=== PATIENT | male | born 1940 | race Caucasian/White ===

== ENCOUNTER → 2020-01-04 09:31 | Outpatient (BNVA) | payer MEDICARE, SELFPAY | PROVIDERS: PCP Internal Medicine; Visit Provider Hospitalist | DX: J44.9 Chronic obstructive pulmonary disease, unspecified (principal); J47.9 Bronchiectasis, uncomplicated; R91.8 Other nonspecific abnormal finding of lung field; Z79.899 Other long term (current) drug therapy | CPT/HCPCS: 99212 ==

== ENCOUNTER 2020-06-03 07:40 | Outpatient (REF) | payer MEDICARE, SELFPAY ==
--- NOTE | ~2020-06-03 | CT_ITS ---
EXAMINATION: CT CHEST WITHOUT CONTRAST CLINICAL INFORMATION: Follow-up pulmonary nodules COMPARISON: Previous chest CT November 2019 TECHNIQUE: Multidetector volumetric CT imaging of the chest was done. Axial MIP volume rendering provided. Sagittal and coronal reformatted images were obtained. This CT examination was performed using dose optimization techniques as appropriate, variously including the following: *Automated exposure control *Adjustment of mA and/or kV according to patient size (this includes techniques or standardized protocols for targeted exams where dose is matched to indication/reason for exam; i.e. extremities or head) *Use of iterative reconstruction technique DLP: 195 mGy-cm FINDINGS: LUNGS: There is a mixed cystic and groundglass attenuation area in the lateral right upper lobe. Cystic and groundglass attenuation components together measures 1.5 cm axial image 231 series 7 and does not appear appreciably changed. There is a 2 mm right upper lobe nodule axial image 75 series 7 able. There is a 2 mm solid right lower lobe nodule axial image 264 series 7 that is stable. There is a 4 mm groundglass attenuation nodule in the right lower lobe axial image 301 series 7 that is stable. There is a solid 3 mm nodules in the right lower lobe axial image 385 that is stable. There is mild bronchiectasis in the left lower lobe at the lung bases for example axial image 369 series 7. There is increased soft tissue in the bronchi probably representing patient secretions. No endobronchial or endotracheal lesion is seen. MEDIASTINUM: The heart does not appear enlarged. There is fat in the anterior atrial septum. There is coronary artery and aortic valve calcification. There is no pericardial effusion. The thoracic aorta is normal in caliber. PLEURA: There is no pleural effusion. No pleural mass or thickening. AXILLA: No lymphadenopathy. UPPER ABDOMEN: There is new pneumobilia seen in the liver. The gallbladder has been removed. This is unchanged. OSSEOUS STRUCTURES: There are degenerative changes of the spine. CT/CT chest wo con IMPRESSION: Stable pulmonary nodules. Continued chest CT follow-up of the 1.5 cm mixed cystic and groundglass attenuation right upper lobe nodule recommended. Left lower lobe bronchiectasis. Coronary artery and aortic valve calcification.
== END 2020-06-03 07:41 | disposition home or self-care (01) ==
LOC: HO.CT 07:40
PROVIDERS: PCP Internal Medicine; Visit Provider Hospitalist
DX: R91.8 Other nonspecific abnormal finding of lung field (principal)
CPT/HCPCS: 71250

== ENCOUNTER → 2020-07-08 10:33 | Outpatient (BNVA) | payer MEDICARE, SELFPAY | PROVIDERS: PCP Internal Medicine; Visit Provider Hospitalist | DX: R91.8 Other nonspecific abnormal finding of lung field (principal); J47.9 Bronchiectasis, uncomplicated; J40 Bronchitis, not specified as acute or chronic; J41.8 Mixed simple and mucopurulent chronic bronchitis | CPT/HCPCS: 99212 ==

== ENCOUNTER 2021-04-09 10:14 | Outpatient (REF) | payer MEDICARE, SELFPAY | END 2021-04-09 10:15 | disposition home or self-care (01) | LOC: CF 10:14 | PROVIDERS: Visit Provider Hospitalist | DX: R91.8 Other nonspecific abnormal finding of lung field (principal); J44.1 Chronic obstructive pulmonary disease with (acute) exacerbation | CPT/HCPCS: 87070; 87205; 99212 ==

== ENCOUNTER 2021-04-29 10:05 | Outpatient (REF) | payer MEDICARE, SELFPAY ==
[2021-04-29 11:18] LABS: MANUAL DIFF FLAG NO
[2021-04-29 11:45] LABS: Basophils Percent Auto 0.4 % (0-2); Eosinophils Absolute Auto 0.3 X10*3/uL (0.0-0.4); Eosinophils Percent Auto 3.2 % (0-4); Hematocrit 40.5 % (42.0-52.0); Hemoglobin 13.5 g/dl (14.0-18.0); Imm Gran Abs Auto 0.07 X10*3/uL (0.00-0.03); Imm Gran Pct Auto 0.9 % (0.0-0.4); Lymphocytes Absolute Auto 1.5 X10*3/uL (1.2-4.9); Lymphocytes Percent Auto 18.4 % (20-40); Mean Corpuscular HGB Conc 33.3 g/dl (31.0-36.0); Mean Corpuscular Hemoglobin 30.8 pg (27.0-33.0); Mean Corpuscular Volume 92.3 fL (80.0-98.0); Mean Platelet Volume 9.1 fL (9.4-12.4); Monocytes Absolute Auto 0.9 X10*3/uL (0.1-1.2); Monocytes Percent Auto 11.1 % (2-11); Neutrophils Absolute Auto 5.2 x10*3/uL (2.0-8.3); Platelet Count 229 X10*3/uL (160-400); Red Blood Count 4.39 X10*6/uL (4.60-5.80); Red Cell Distribution Width 13.4 % (11.0-16.0); White Blood Count 7.9 X10*3/uL (4.8-10.8)
[2021-04-29 12:20] LABS: Erythrocyte Sedimentation Rate 7 MM/HR (0-15)
[2021-04-30 14:52] LABS: IgA 137 mg/dL (70-320); IgG 521 mg/dL (600-1540); IgM 26 mg/dL (50-300)
[2021-04-30 22:27] LABS: Immunoglobulin G Subclass 1 366 mg/dL (382-929); Immunoglobulin G Subclass 2 70 mg/dL (241-700); Immunoglobulin G Subclass 3 38 mg/dL (22-178); Immunoglobulin G Subclass 4 3.1 mg/dL (4-86); Immunoglobulin G Total 507 mg/dL (600-1540)
== END 2021-04-29 10:06 | disposition home or self-care (01) ==
LOC: HO.LAB 10:05
PROVIDERS: PCP Physician Assistant Medical; Visit Provider Hospitalist
DX: J41.1 Mucopurulent chronic bronchitis (principal); J47.0 Bronchiectasis with acute lower respiratory infection; R91.8 Other nonspecific abnormal finding of lung field
CPT/HCPCS: 36415; 82784; 82785; 85025; 85652; 86003; 99212

== ENCOUNTER → 2021-06-03 10:07 | Outpatient (BNVA) | payer MEDICARE, SELFPAY | PROVIDERS: PCP Physician Assistant Medical; Visit Provider Hospitalist | DX: J40 Bronchitis, not specified as acute or chronic (principal); J47.0 Bronchiectasis with acute lower respiratory infection; J41.1 Mucopurulent chronic bronchitis; R91.8 Other nonspecific abnormal finding of lung field; D80.1 Nonfamilial hypogammaglobulinemia | CPT/HCPCS: 99212 ==

== ENCOUNTER 2021-06-11 07:55 | Day surgery (SDC) | payer MEDICARE, SELFPAY ==
--- NOTE | 2021-06-10 11:47 | HO.ANESPROP2 ---
Documented by User: Keesha Glynn NP 06/10/21 13:42 HPI - Anesthesia Eval Consult details Narrative: 81yo M for Bronchoscopy Fiberoptic PMFSH Active Problems Active Problems: All Active Problems (Updated 06/03/21 @ 21:36 by Greg Medley MD) Hypogammaglobulinemia (Acute) Pulmonary nodules (Acute) Bronchiectasis (Acute) Bronchitis (Acute) COPD (chronic obstructive pulmonary disease) (Acute) Past Medical History Medical History (Updated 06/03/21 @ 21:36 by Greg Medley MD) Aortic regurgitation Aortic stenosis Bronchiectasis Bronchitis CAD (coronary artery disease) COPD (chronic obstructive pulmonary disease) Hypogammaglobulinemia Pulmonary nodules Surgical History Surgical History (Updated 06/02/21 @ 15:13 by Margie Montague PA-C) History of left knee surgery History of lithotripsy Social History Social History (Updated 04/09/21 @ 10:38 by ANYA Nelson) Patient Tobacco Use Status: Former Tobacco user Quit Date: 1969 Tobacco use type: Cigarette Smoked in Last 30 Days: No Use of substances other than those prescribed or required for medical reasons: No Are you DNR?: No Advance Directives: No Advance Directives Information Provided: Yes Meds Allergies Allergy/AdvReac Type Severity Reaction Status Date / Time acetaminophen [From Percocet] Allergy Severe Anxiety Verified 06/11/21 08:34 oxycodone [From Percocet] Allergy Severe Anxiety Verified 06/11/21 08:34 PCN Allergy Intermediate Swelling Uncoded 06/03/21 10:20 Home Medications Medication Instructions Recorded Confirmed Last Taken Type atorvastatin 40 mg tablet mg PO 01/04/20 07/08/20 Unknown History celecoxib 200 mg capsule 200 mg PO DAILY 01/04/20 07/08/20 Unknown History finasteride 5 mg tablet 5 mg PO DAILY 01/04/20 07/08/20 Unknown History lorazepam 1 mg tablet 1 mg PO 01/04/20 07/08/20 Unknown History methimazole 5 mg tablet 5 mg PO DAILY 01/04/20 07/08/20 Unknown History metoprolol succinate 25 mg 25 mg PO DAILY 01/04/20 07/08/20 Unknown History tablet,extended release 24 hr omeprazole 20 mg capsule,delayed 20 mg PO DAILY 01/04/20 07/08/20 Unknown History release sertraline 50 mg tablet 50 mg PO DAILY 01/04/20 07/08/20 Unknown History tamsulosin 0.4 mg capsule mg PO 01/04/20 07/08/20 Unknown History aspirin 81 mg tablet,delayed 81 mg PO DAILY 04/09/21 Unknown History release fluticasone propionate 50 spray INTRANASAL 04/29/21 Unknown History mcg/actuation nasal spray,suspension tacrolimus 0.1 % topical ointment TOPICAL BID 06/03/21 Unknown History Exam Exam Date and Time: June 10, 2021 1147 Narrative Narrative: EKG 11/2020 NSR @ 61 ECHO 01/2021 Mild LVH with normal LV cavity size and systolic function. Normal RWM with EF 55-60% Normal RV size and systolic function Mild to mod . Mild AI. Grade 1 DD consistent with normal LA pressure. Normal artery systolic pressure. C/W 08/2018 study, aortic stenosis has progressed slightly but otherwise findings are stable. Assessment and Plan Assessment Anesthesia Assessment: Chart Reviewed Documented by User: Anoop Hernandez MD 06/11/21 09:42 [facility], [facility] Past Medical History Medical History (Updated 06/03/21 @ 21:36 by Greg Medley MD) Aortic regurgitation Aortic stenosis Bronchiectasis Bronchitis CAD (coronary artery disease) COPD (chronic obstructive pulmonary disease) Hypogammaglobulinemia Pulmonary nodules Family History Family history of problems with anesthesia: No Surgical History Surgical History (Updated 06/02/21 @ 15:13 by Margie Montague PA-C) History of left knee surgery History of lithotripsy History of Problems with Anesthesia: No Social History Social History (Updated 04/09/21 @ 10:38 by ANYA Nelson) Patient Tobacco Use Status: Former Tobacco user Quit Date: 1969 Tobacco use type: Cigarette Smoked in Last 30 Days: No Use of substances other than those prescribed or required for medical reasons: No Are you DNR?: No Advance Directives: No Advance Directives Information Provided: Yes Meds Allergies Allergy/AdvReac Type Severity Reaction Status Date / Time acetaminophen [From Percocet] Allergy Severe Anxiety Verified 06/11/21 08:34 oxycodone [From Percocet] Allergy Severe Anxiety Verified 06/11/21 08:34 PCN Allergy Intermediate Swelling Uncoded 06/03/21 10:20 Home Medications Medication Instructions Recorded Confirmed Last Taken Type atorvastatin 40 mg tablet mg PO 01/04/20 07/08/20 Unknown History celecoxib 200 mg capsule 200 mg PO DAILY 01/04/20 07/08/20 Unknown History finasteride 5 mg tablet 5 mg PO DAILY 01/04/20 07/08/20 Unknown History lorazepam 1 mg tablet 1 mg PO 01/04/20 07/08/20 Unknown History methimazole 5 mg tablet 5 mg PO DAILY 01/04/20 07/08/20 Unknown History metoprolol succinate 25 mg 25 mg PO DAILY 01/04/20 07/08/20 Unknown History tablet,extended release 24 hr omeprazole 20 mg capsule,delayed 20 mg PO DAILY 01/04/20 07/08/20 Unknown History release sertraline 50 mg tablet 50 mg PO DAILY 01/04/20 07/08/20 Unknown History tamsulosin 0.4 mg capsule mg PO 01/04/20 07/08/20 Unknown History aspirin 81 mg tablet,delayed 81 mg PO DAILY 04/09/21 Unknown History release fluticasone propionate 50 spray INTRANASAL 04/29/21 Unknown History mcg/actuation nasal spray,suspension tacrolimus 0.1 % topical ointment TOPICAL BID 06/03/21 Unknown History Exam Airway Mallampati Class: I TM Dist: >3cm Neck ROM: Full Denture: Upper Heart: ok. chart rev. Lungs: ok Assessment and Plan Assessment Anesthesia Assessment: Anesthesia Plan Discussed and Chart Reviewed Final Anesthetic Review Family History of Problems with Anesthesia: No History of Problems with Anesthesia: No NPO: Yes ASA Class: IV Final Preanesthetic Review: No Changes in Pt Med Stat, Meds/Allgs Chart Reviewed, Consent Obtained/Reviewed and Anes Risks/Benef Reviewed Patient Risk: High Procedure Risk: Intermediate Anesthetic Plan Anesthetic Plan: MAC: and Agree w/ Assess. and Plan Disposition: Standard PACU
[2021-06-11] VITALS (14 sets, daily range): BP systolic 80–129; BP diastolic 38–62; PULSE 58–69; RESP 12–16; TEMP 36.3–36.8; O2SAT 94–100; BMI 27.3
[2021-06-11] MEDS: Lactated Ringers 1,000 ML 50 ML IVCONT (09:02)
--- NOTE | 2021-06-11 09:11 | MHC.SHP ---
Pre-Procedural Eval Section A Date of Service: 06/11/21 The patient is an INPATIENT: No Changes since office visit: No Cold of Flu in the past 2 weeks, No New Medical Problems, No Changes in Medication and No Patient answered all questions The History & Physical has been completed within 30 days and I have reviewed it.: Yes Section B Chief Complaint: Bronchiectasis, Allergies: Allergies Allergy/AdvReac Type Severity Reaction Status Date / Time acetaminophen [From Percocet] Allergy Severe Anxiety Verified 06/11/21 08:34 oxycodone [From Percocet] Allergy Severe Anxiety Verified 06/11/21 08:34 PCN Allergy Intermediate Swelling Uncoded 06/03/21 10:20 Plan I have reviewed the history and physical and performed a pertinent physical examination on my patient. No changes have occurred unless specified.
--- NOTE | 2021-06-16 12:05 | OP_ITS ---
SURGEON: Greg Medley MD PREOPERATIVE DIAGNOSIS: POSTOPERATIVE DIAGNOSIS: PROCEDURE PERFORMED: Bronchoscopy. ESTIMATED BLOOD LOSS: COMPLICATIONS: None. ANESTHESIA: MAC. ASSISTANTS: SPECIMENS: PREOPERATIVE DIAGNOSES: Bronchitis and bronchiectasis. POSTOPERATIVE DIAGNOSES: Tracheobronchomalacia and bronchitis along with bronchiectasis. BLEEDING: None. INTERPRETATION: 1. Successful therapeutic suctioning of the airways. 2. Evidence of tracheobronchomalacia, severe. 3. Microscopic brush from the right lung. 4. Bilateral lung washings for cytology microbiology. NURSES MEDICAL ASSISTANTS PHLEBOTOMISTS: None. DESCRIPTION OF PROCEDURE: After the patient was adequately sedated, the flexible digital bronchoscope was inserted over the oral airway to the level of the larynx. The vocal cords moved symmetrically to the midline without any lesions. The larynx appeared to be normal. After instilling additional lidocaine, the bronchoscope was then passed the vocal cords to the level of the trachea. The patient did have significant tracheomalacia at the level of the mid and distal trachea. Endotracheal mucosa appeared normal. After instilling additional lidocaine, the bronchoscope was then navigated to the entire tracheobronchial tree. There was some inflammation and bronchitis looking airways primarily in the right middle lobe area and right upper lobe. The patient did have thick secretions coming out of the right upper lobe and also the right mainstem bronchus that were easily clear. The patient also had frothy secretions otherwise throughout mainly in the lower lung zones. There was some gross micro aspirations noted throughout the procedure. No endobronchial lesions or masses noted. No evidence of any concerning lesions. The bronchoscope was navigated to the right side where a microscopic brush was introduced into the right middle lobe and right lower lobe area. Specimen sent to the appropriate locations. Bronchial washings were also collected bilaterally. Able to clear some thick purulent secretions primarily from the right upper lobe and right middle lobe area. After that, we cleared the frothy secretions. The bronchoscope was then removed. The total endoscopic time approximately 12 minutes. The patient tolerated the procedure well. Vital signs were stable throughout the procedure. MD JULY Su/JAIME / [id number]
== END 2021-06-11 12:30 | disposition home or self-care (01) ==
PROVIDERS: PCP Physician Assistant Medical; Visit Provider Hospitalist
PROC: 0BJ08ZZ Inspection of Tracheobronchial Tree, Via Natural or Artificial Opening Endoscopic (ICD-10-PCS; CPT 31622; principal; 2021-06-11 09:30)
DX: J44.9 Chronic obstructive pulmonary disease, unspecified (principal); J39.8 Other specified diseases of upper respiratory tract; J40 Bronchitis, not specified as acute or chronic; R91.8 Other nonspecific abnormal finding of lung field; I25.10 Atherosclerotic heart disease of native coronary artery without angina pectoris; I35.0 Nonrheumatic aortic (valve) stenosis; I35.1 Nonrheumatic aortic (valve) insufficiency; D80.1 Nonfamilial hypogammaglobulinemia; Z79.899 Other long term (current) drug therapy; Z88.0 Allergy status to penicillin; Z88.8 Allergy status to other drugs, medicaments and biological substances; Z87.891 Personal history of nicotine dependence
CPT/HCPCS: 31645; 31623; 87071; 87102; 87106; 87116; 87205; 88112; J0171; J3010

== ENCOUNTER → 2021-07-13 09:39 | Outpatient (BNVA) | payer MEDICARE, SELFPAY | PROVIDERS: PCP Physician Assistant Medical; Visit Provider Hospitalist | DX: J40 Bronchitis, not specified as acute or chronic (principal); J45.50 Severe persistent asthma, uncomplicated; R91.8 Other nonspecific abnormal finding of lung field; D80.1 Nonfamilial hypogammaglobulinemia; J44.9 Chronic obstructive pulmonary disease, unspecified | CPT/HCPCS: 99212 ==

== ENCOUNTER 2021-08-24 10:49 | Outpatient (REF) | payer MEDICARE, SELFPAY ==
--- NOTE | ~2021-08-24 | XR_ITS ---
EXAMINATION: XR CHEST CLINICAL INFORMATION: COPD. COMPARISON: Chest CT scan dated 06/03/2020. TECHNIQUE: 2 views of the chest were obtained. FINDINGS: Minimal linear markings are seen in the lingula. The lungs are otherwise clear. There are no pleural effusions. The heart and mediastinal structures are unremarkable. XR/XR chest 2V IMPRESSION: Minimal linear atelectasis versus scarring in the lingula. No acute cardiopulmonary process.
[2021-08-24 11:00] LABS: MANUAL DIFF FLAG NO
[2021-08-24 11:29] LABS: Basophils Absolute Auto 0.1 X10*3/uL (0.0-0.2); Basophils Percent Auto 0.9 % (0-2); Eosinophils Absolute Auto 0.4 X10*3/uL (0.0-0.4); Eosinophils Percent Auto 5.9 % (0-4); Hematocrit 38.1 % (42.0-52.0); Hemoglobin 13.1 g/dl (14.0-18.0); Imm Gran Abs Auto 0.03 X10*3/uL (0.00-0.03); Imm Gran Pct Auto 0.4 % (0.0-0.4); Lymphocytes Absolute Auto 1.4 X10*3/uL (1.2-4.9); Lymphocytes Percent Auto 20.4 % (20-40); Mean Corpuscular HGB Conc 34.4 g/dl (31.0-36.0); Mean Corpuscular Hemoglobin 31.1 pg (27.0-33.0); Mean Corpuscular Volume 90.5 fL (80.0-98.0); Mean Platelet Volume 9.2 fL (9.4-12.4); Monocytes Absolute Auto 0.8 X10*3/uL (0.1-1.2); Monocytes Percent Auto 11.8 % (2-11); Neutrophils Absolute Auto 4.2 x10*3/uL (2.0-8.3); Neutrophils Percent Auto 60.6 % (45-73); Platelet Count 217 X10*3/uL (160-400); Red Blood Count 4.21 X10*6/uL (4.60-5.80)
[2021-08-24 12:17] LABS: Erythrocyte Sedimentation Rate 4 MM/HR (0-15)
[2021-08-26 07:32] LABS: Immunoglobulin E 16 kU/L (<OR=114)
[2021-08-26 15:22] LABS: Immunoglobulin G Subclass 1 394 mg/dL (382-929); Immunoglobulin G Subclass 2 77 mg/dL (241-700); Immunoglobulin G Subclass 3 46 mg/dL (22-178); Immunoglobulin G Total 619 mg/dL (600-1540)
[2021-08-30 13:52] LABS: Asperg fumigatus Precip Abs NEGATIVE (NEGATIVE); Micropoly faeni Abs NEGATIVE (NEGATIVE); Pigeon serum Abs NEGATIVE (NEGATIVE); Saccharo pora viridis Abs NEGATIVE (NEGATIVE); Thermo candidus Abs NEGATIVE (NEGATIVE); Thermoa vulgaris #1 NEGATIVE (NEGATIVE)
== END 2021-08-24 10:50 | disposition home or self-care (01) ==
LOC: HO.XRAY 10:49
PROVIDERS: PCP Physician Assistant Medical; Visit Provider Hospitalist
DX: J45.50 Severe persistent asthma, uncomplicated (principal); R91.8 Other nonspecific abnormal finding of lung field; D80.1 Nonfamilial hypogammaglobulinemia; J44.9 Chronic obstructive pulmonary disease, unspecified; J40 Bronchitis, not specified as acute or chronic
CPT/HCPCS: 36415; 71046; 82784; 82785; 85025; 85652; 86331; 86606; 86609; 99212

== ENCOUNTER 2021-10-27 08:48 | Outpatient (REF) | payer MEDICARE, SELFPAY | END 2021-10-27 08:49 | disposition home or self-care (01) | LOC: HO.MDS 08:48 | PROVIDERS: Visit Provider Hospitalist | DX: J45.50 Severe persistent asthma, uncomplicated (principal) | CPT/HCPCS: 96372 ==

== ENCOUNTER 2021-11-24 09:50 | Outpatient (REF) | payer MEDICARE, SELFPAY | END 2021-11-24 09:51 | disposition home or self-care (01) | LOC: HO.MDS 09:50 | PROVIDERS: Visit Provider Hospitalist | DX: J45.50 Severe persistent asthma, uncomplicated (principal) | CPT/HCPCS: 96372; J0517 ==

== ENCOUNTER → 2021-11-25 11:05 | Outpatient (BNVA) | payer MEDICARE, SELFPAY | PROVIDERS: PCP Physician Assistant Medical; Visit Provider Hospitalist | DX: J44.9 Chronic obstructive pulmonary disease, unspecified (principal); J45.50 Severe persistent asthma, uncomplicated; I35.0 Nonrheumatic aortic (valve) stenosis; I35.1 Nonrheumatic aortic (valve) insufficiency; J47.0 Bronchiectasis with acute lower respiratory infection; R91.8 Other nonspecific abnormal finding of lung field; D80.1 Nonfamilial hypogammaglobulinemia; Z79.899 Other long term (current) drug therapy | CPT/HCPCS: 99212 ==

== ENCOUNTER → 2022-03-26 08:43 | Outpatient (BNVA) | payer MEDICARE, SELFPAY | PROVIDERS: PCP Physician Assistant Medical; Visit Provider Hospitalist | DX: J45.51 Severe persistent asthma with (acute) exacerbation (principal); J47.0 Bronchiectasis with acute lower respiratory infection; R91.8 Other nonspecific abnormal finding of lung field; D80.1 Nonfamilial hypogammaglobulinemia | CPT/HCPCS: 99212 ==

== ENCOUNTER → 2022-04-14 09:43 | Outpatient (BNVA) | payer MEDICARE, SELFPAY | PROVIDERS: PCP Physician Assistant Medical; Visit Provider Hospitalist | DX: Z13.89 Encounter for screening for other disorder (principal) ==

== ENCOUNTER 2022-04-14 10:43 | Outpatient (REF) | payer MEDICARE, SELFPAY | END 2022-04-14 10:44 | disposition home or self-care (01) | LOC: HO.MDS 10:43 | PROVIDERS: Visit Provider Hospitalist | DX: J45.50 Severe persistent asthma, uncomplicated (principal) | CPT/HCPCS: 96372; 99212 ==

== ENCOUNTER 2022-06-03 10:22 | Outpatient (REF) | payer MEDICARE, SELFPAY | END 2022-06-03 10:23 | disposition home or self-care (01) | LOC: HO.LNP 10:22 | PROVIDERS: Visit Provider Hospitalist | DX: J47.0 Bronchiectasis with acute lower respiratory infection (principal) | CPT/HCPCS: 87070; 87077; 87186; 87205 ==

== ENCOUNTER 2022-11-19 | Outpatient (REF) | payer MEDICARE, SELFPAY | END 2022-11-19 00:01 | disposition home or self-care (01) | LOC: CF | PROVIDERS: Visit Provider Nurse Practitioner Family | DX: J18.9 Pneumonia, unspecified organism (principal); J44.9 Chronic obstructive pulmonary disease, unspecified | CPT/HCPCS: 94640; 99212 ==

== ENCOUNTER 2022-11-19 13:08 | Outpatient (AMB) | payer MEDICARE, SELFPAY ==
[2022-11-19 13:20] VITALS: BP 126/74; PULSE 79; O2SAT 95; BMI 27.4
--- NOTE | 2022-11-19 13:20 | A.OFFVIS_ITS ---
Intake Vital Signs 11/19/22 13:20 Height 5 ft 7 in Weight 175 lb BMI 27.4 BP 126/74 Blood Pressure Location Lt brachial Position Sitting Pulse 79 Pulse Source Pulse Oximeter Pulse Oximetry (%) 95 Oxygen Delivery Method Room Air Intake Visit Reasons: Hospital follow up Manager Digital [employer] Required: No Master Cosmetologist: Master Cosmetologist offered & declined Accompanied by: Spouse Allergies acetaminophen [From Percocet] Allergy (Severe, Verified 11/19/22 13:23) Anxiety oxycodone [From Percocet] Allergy (Severe, Verified 11/19/22 13:23) Anxiety PCN Allergy (Intermediate, Uncoded 11/19/22 13:23) Swelling Medication List - Last Reconciled 11/19/22 by Francesca Mccormack LPN albuterol sulfate 2.5 mg (3 mL) inhalation BID aspirin 81 mg PO DAILY atorvastatin mg PO benralizumab 30 mg subcut Q8W benzonatate 100 mg PO BID PRN 30 days budesonide 0.5 mg (2 mL) inhalation BID 30 days celecoxib 200 mg PO DAILY dextromethorphan-guaifenesin 5-100 mg/5 mL (Robitussin Cough-Chest Congestion DM) 10 mL PO Q6H PRN 14 days diphenhydramine HCl (Benadryl Allergy) 25 mg PO BID PRN 30 days doxycycline monohydrate 100 mg PO BID 28 days finasteride 5 mg PO DAILY fluticasone propionate 50 mcg/actuation sprays intranasal immun glob G(IgG)-gly-IgA ov50 10 % (Gammagard Liquid) 40 grams IV Q4W 4 weeks ipratropium-albuterol 0.5 mg-3 mg(2.5 mg base)/3 mL USE 1 VIAL VIA NEBULIZER 4 TIMES A DAY lorazepam 1 mg PO methimazole 5 mg PO DAILY metoprolol succinate ER 25 mg PO DAILY omeprazole 20 mg PO DAILY prednisone PO daily; Take 6 tabs daily x 3 days, then 5 tabs x 3 days, then 4 tabs x 3 days, then 3 tabs x 3 days, then 2 tabs daily x 3 days, then 1 tab x 3 days to complete. 18 days roflumilast (Daliresp) 500 mcg PO DAILY 30 days sertraline 50 mg PO DAILY tacrolimus 0.1% topical BID tamsulosin mg PO HPI Hospital follow up HPI Details Timothy is a pleasant 82 year old male, former smoker, with underlying COPD, bronchiectasis, pulmonary hypertension and moderate aortic stenosis. Today he presents for a hospital follow up. He was seen in the ED at [facility] on 11/16/22 after pleuritic chest pain with associated dyspnea. After evaluation, CXR revealed LLL consolidation and he was treated with doxycycline for pneumonia. CTA negative for PE. COVID negative. He continues to report dyspnea with minimal exertion, pleuritc chest pain, productive cough with snyder sputum. He has been using his budesonide and duoneb BID. Of note, he reports in the past taking doxycycline and levaquin with minimal improvements in his symptoms. FORMERLY [facility], [facility] Medical History (Updated 11/22/22 @ 09:34 by Floridalma Moya NP) Asthma-COPD overlap syndrome Asthma Hypogammaglobulinemia CAD (coronary artery disease) Aortic regurgitation Aortic stenosis Pulmonary nodules Bronchiectasis Bronchitis COPD (chronic obstructive pulmonary disease) Surgical History (Updated 06/02/21 @ 15:13 by Margie Montague PA-C) History of left knee surgery History of lithotripsy Social History (Updated 11/19/22 @ 13:28 by Francesca Mccormack LPN) Patient Tobacco Use Status: Former Tobacco user Quit Date: 1969 Tobacco use type: Cigarette Smoked in Last 30 Days: No Review of Systems Const Denies chills, Denies excessive sweating, Denies fever(s), Denies headache(s) and Denies night sweats Eyes Denies dry eyes, Denies irritation and Denies itchy eyes ENT Reports Normal hearing present, Denies headache(s), Denies nasal congestion, Denies nasal discharge, Denies post nasal drip and Denies sore throat Card Denies claudication, Denies leg edema, Reports dyspnea, Reports dyspnea on exertion, Denies orthopnea and Denies paroxysmal nocturnal dyspnea Resp Reports change in phlegm color, Reports chest congestion, Reports cough, Denies hemoptysis, Reports pain on inspiration, Reports pain with cough, Reports dyspnea, Reports dyspnea on exertion, Denies stridor and Reports wheezing Musc Denies myalgias Neuro Reports Normal hearing present and Denies headache(s) Endo Denies excessive sweating Missael/Lymph Denies lymphadenopathy Aller/Immun Denies itchy eyes, Denies seasonal rhinorrhea and Reports wheezing Physical Exam Vital Signs: Last Vital Signs Pulse 79 11/19/22 13:20 BP 126/74 11/19/22 13:20 Pulse Ox 95 11/19/22 13:20 Oxygen Delivery Method Room Air 11/19/22 13:20 BMI result Body Mass Index 27.4 Const General: cooperative, healthy appearing, comfortable, no acute distress, well de veloped and alert Orientation/consciousness: patient oriented x3 Limitations: no limitations HEENT Head: Yes normal to inspection, Yes normocephalic and Yes atraumatic Ears: hearing grossly normal bilaterally and external ears normal Eyes General: appearance normal, both eyes and all related structures Eyelids: Yes eyelids normal Sclerae: sclerae normal EOM: EOMs intact bilaterally Neck Neck: Yes normal visual inspection and Yes no lymphadenopathy Lymphatic: no lymphadenopathy noted Chest Chest palpation & inspection: normal inspection of the chest Resp Effort & Inspection: normal respiratory effort, able to speak in complete sentences, audible wheezes, Actively coughing, no stridor, not tachypneic, no tripod positioning and no use of accessory muscles Auscultation: wheezes expiratory wheezes and diminished lung sounds (bases) bilateral Cardio Jugular venous distension: no JVD Rate: regular rate Rhythm: regular rhythm Skin Other: warm, dry General skin exam: no rashes or lesions noted Neuro General: patient oriented x3 Cranial nerves: Yes Normal hearing present Cognition (Neuro): normal cognition Gait exam (Neuro): Normal gait present Extrem General: Yes normal to inspection, Yes capillary refill normal, Yes no clubbing, cyanosis or edema and Yes no pedal edema Psych Appearance: grossly normal and well kempt Speech and movement: Normal speech and movement present and Clear speech present Affect: normal affect Attitude: cooperative Thought process: Normal thought process present Thought content: Normal thought content present Insight: Good insight present (Psych) Judgement: Good judgement present (Psych) Office Procedures Nebulizer Treatment Nebulizer Treatment 76715-[id number]/MDI RX initial, or Nebulizer Subsequent Treatment Office Meds ipratropium 0.5 mg-albuterol 3 mg (2.5 mg base)/3 mL nebulization soln Performing Provider: Floridalma Moya NP Performing Location: [facility] Administered by: Francesca Mccormack LPN on 11/19/22 14:02 Dose Route Admin Location Dispensed Lot Number Expiration Date ND Matrix Supervisor 3 mL inhalation 3 mL [id number] 04/07/24 9522-1745-01 [facility] Assessment & Plan Assessment & Plan (1) Pneumonia: Code(s): J18.9 - Pneumonia, unspecified organism (2) Asthma-COPD overlap syndrome: Code(s): J44.9 - Chronic obstructive pulmonary disease, unspecified (3) Bronchiectasis: Code(s): J47.9 - Bronchiectasis, uncomplicated Qualifiers: Bronchiectasis type: with acute lower respiratory infection Qualified Code(s): J47.0 - Bronchiectasis with acute lower respiratory infection Plan Timothy presents for hospital follow up after being diagnosed with CAP and discharged on doxycyline. Initially he reported improvements in symptoms but now with persistent cough and increased dyspnea on exertion. Reported improvements after duoneb in office. Patient noted minimal improvements with levaquin in the past, will send in Vantin and prednisone. Patient aware if symptoms do not improve that he will need to return to the ED for evaluation. All questions were answered and patient is in agreement of plan. Will follow up with Dr. Medley for regularly scheduled appointment. Orders: Orders AMB Nebulizer Treatment 11/19/22 J44.9 - Chronic obstructive pulmonary disease, unspecified Medications: New prednisone 40 mg (2 x 20 mg) PO DAILY 10 tabs 0RF cefpodoxime must administer with a meal/food 200 mg PO BID 20 tabs 0RF Discontinued prednisone Discontinued Reason: Patient Completed Course PO daily; Take 6 tabs daily x 3 days, then 5 tabs x 3 days, then 4 tabs x 3 days, then 3 tabs x 3 days, then 2 tabs daily x 3 days, then 1 tab x 3 days to complete. 18 days 63 tabs 0RF Coding Level of Care Code Est Pt Level 4 (64630) Diagnoses Pneumonia J18.9 Asthma-COPD overlap syndrome J44.9 Bronchiectasis with acute lower respiratory infection J47.0 Bronchiectasis type: with acute lower respiratory infection CPT Codes Nebulizer Treatment - Nebulizer Treatment, initial or subsequent: 13464- Nebulizer/MDI RX initial, or Nebulizer Subsequent Treatment ([id number])
== END 2022-11-19 14:32 | disposition home or self-care (01) ==
LOC: HO.HPSW 13:08
PROVIDERS: PCP Physician Assistant Medical; Visit Provider Nurse Practitioner Family
DX: J44.9 Chronic obstructive pulmonary disease, unspecified (principal)
CPT/HCPCS: 99212; 99214

== ENCOUNTER 2023-05-11 09:04 | Outpatient (AMB) | payer MEDICARE, SELFPAY ==
[2023-05-11 09:09] VITALS: BP 124/70; PULSE 71; O2SAT 94; BMI 27.3
--- NOTE | 2023-05-11 09:09 | A.OFFVIS_ITS ---
Intake Vital Signs 05/11/23 09:09 Height 5 ft 6 in Weight 169 lb BMI 27.3 BP 124/70 Blood Pressure Location Lt brachial Position Sitting Pulse 71 Pulse Source Pulse Oximeter Pulse Oximetry (%) 94 Oxygen Delivery Method Room Air Intake Visit Reasons: persistent cough [employer] Required: No Allergies acetaminophen [From Percocet] Allergy (Severe, Verified 05/11/23 09:12) Anxiety oxycodone [From Percocet] Allergy (Severe, Verified 05/11/23 09:12) Anxiety PCN Allergy (Intermediate, Uncoded 05/11/23 09:12) Swelling HPI HPI Comments History of Present Illness Details The patient is a 83-year-old gentleman with a cardiac history including mild aortic stenosis and moderate aortic regurgitation and severe persistent asthma. He has been complaining of progressive dyspnea on exertion. He stays bronson y active but lately he has been noticing that he has been getting more short of breath with the same activity. He has had a full cardiac evaluation. His echocardiogram demonstrated the above. His EF is normal. He also underwent pulmonary function studies demonstrating a mild obstructive ventilatory defect consistent with asthma COPD overlap syndrome. He also underwent a CT scan of the chest that we personally reviewed here in the office with multiple findings including pulmonary nodules largest 1 measuring more than 2 cm in size in the right middle lobe. He also has evidence of bronchiectasis primarily in the right middle lobe and also in the lower lung zones. Some tree-in-bud in also noted and mucus plugging. In addition to the some minimal emphysema. The findings are suspicious for smoldering infection. However, with this history of smoking and the nodular densities will need to rule out malignancy at this time. The patient does have appears to have some bronchiectasis to therefore will focus on CPT. We did send a sputum culture that was positive for Moraxella catarrhalis. His sputum for AFB demonstrating no evidence of any acid-fast organisms. But, which still waiting for the culture. The main take up to 6-8 weeks. 04/09/2021 the patient is here for a pulmonary follow-up visit. Apparently back in February he developed the flu. His respiratory symptoms worsened significantly. He was briefly hospitalized at [facility]. He did have 2 chest x-rays with no acute disease. Although, he did have some haziness over the right lower lobe area. He also has the evidence of the bronchi ectatic changes. The patient was treated with Tamiflu in addition to antibiotics and prednisone. Although his symptoms continue. He has not been using the nebulizer as regularly as he should be using it. He does not have a maintenance inhaler at this time. The patient understands that if he is going to did rely on the nebulized therapy he needs to use it at least a couple times a day. In the office he does have significant wheezing. He was recently started on Levaquin in addition to a prednisone taper. I did given 2 treatments of DuoNeb and his wheezing improved dramatically. Therefore we did have to do any additional steroids. We were able to get a sputum sample to send for microbiology. Therefore, the patient will continue with DuoNeb and budesonide twice a day and also with DuoNeb as needed. We will call him if the sputum culture grows any other resistant organisms. In the meantime he will continue with prednisone taper. 04/29/2021 the patient is here for a pulmonary follow-up visit. Usually in the morning and in the mid afternoon he feels great. Later on in the evening he starts coughing again gets very congested along with wheezing. He has now completed the prednisone. He has significant asthmatic bronchitis. Has had multiple flare-ups requiring prednisone. Therefore I believe that Daliresp will be an excellent option for him if he can tolerate the GI adverse effects. in addition to that will do additional blood work including allergy testing and reassessing his immune system to see if there is any component of i mmunodeficiencies or allergies that maybe contributing to his ongoing respiratory issues. the primary care doctor talked about considering a bronchoscopy. I do believe that that is an option. Will 1st assess the blood work and his response to therapy. if the patient is no better and no clear explanation for symptoms and a bronchoscopy would be helpful to assess for smoldering infections and also for providing a therapeutic bronchoscopy for mucus clearance and removal of mucus plugs. also, bronchoscopy will also better assess the airways looking for bronchomalacia are tracheobronchomalacia which can also resulting chronic cough. 06/03/2021 the patient is here for a pulmonary follow-up visit. He is starting to feel little better. Still has significant chest congestion however. Moderate severity. Still requiring his nebulized therapy on a daily basis. Has been tolerating the azithromycin 3 times a week in addition the Daliresp. Currently on a 250 mcg dose. Will switch him to the higher dose in the near future. In the meantime we did review his blood work demonstrating significant decrease in his total IgG suggesting hypogammaglobulinemia which may be the reason he is developing recurrent infections requiring multiple courses of antibiotics and is still not better even on the azithromycin. Still very congested. Will plan to perform bronchoscopy at this point for the cultures and for therapeutic cleaning of the airways. The patient does have evidence of bronchiectasis on previous CT scans. The patient also has pulmonary nodules. The last time that his nodular density was checked was about a year ago and measures about 1.3-1.4 cm. Therefore will go ahead and repeat the CT scan at this time. 07/13/2021 the patient is here for pulmonary follow-up visit. He continues to have a hard time with breathing. He complains of chest tightness and wheezing. He has required multiple prednisone courses in the last few months. Still with uncontrolled severe persistent asthma. In addition to that he has chest congestion primarily at nighttime. He also started developing significant atopic dermatitis, eczema. He was placed on additional steroids both for the worsening breathing due to his asthma and also for the dermatitis. He recently underwent a biopsy as well. The patient has severe persistent asthma with uncontrolled symptoms even on aggressive respiratory therapy therapy. The patient has been feeling respiratory therapy and now on chronic steroids. The patient will benefit from biologic therapy at this time. I believe Dupixent will be an excellent option for him to treat both his severe asthma and also now the at topic dermatitis. Will go ahead and start the process to start him on therapy. The patient also will undergo blood work once his prednisone is completed. 08/24/2021 the patient is here for a pulmonary follow-up visit. He continues to have worsening symptoms at night time due to his uncontrolled sev ere persistent asthma. We have been trying to keep him off the prednisone specially because of the suppression of the immune system resulting in lower IgE levels. He now has been off the prednisone for about a month which is reassuring although his symptoms are getting worse again. 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 The patient has been maximizing his respiratory therapy with only partial resolution of the symptoms. He continues to have continued cough and shortness of breath and chest tightness and wheezing at nighttime on daily basis. The patient also has a history of eczema. We did try to start him on Dupixent but he was the night. With the elevations in the eosinophils and his severe persistent asthma at this point will go ahead and start him on Fasenra. 11/25/2021 the patient is here for a pulmonary follow-up visit. Overall she is doing better. He has received a 2nd dose of Fasenra. The Fasenra biologic therapy has been affecting beneficial. He still having some chest congestion and shortness of breath and wheezing. He does still need to continue with respiratory therapy. Is likely the Fasenra is helping him significantly. But, he still has significant inflammation and other pathways that resulted inflammation that need to be treated with other medication therapies. Therefore he continues on the azithromycin 3 times a week and also on the Daliresp. He is also using his nebulizer therapy and is CPT. Plan to continue his current therapy for these 3 months and then will have him come back and hopefully we can deescalate some of the therapy as long as he is responding positively to Fasenra. 03/26/2022 the patient is here for a pulmonary follow-up visit. Recently he was evaluated in the ER at [facility]. He had worsening respiratory symptoms. There she did have an x-ray demonstrating no acute disease. She was given prednisone and he was discharged with a COPD exacerbation. The patient has been having difficulty with breathing lately. Unfortunately he has not continue the Fasenra as prescribed. There was some miscommunication about how he is to receive the medication. He had to call to get a delivery. Will go ahead and call the company as well to make sure that he is receiving the delivery. In the meantime he recently had a surgical excision of a melanoma on the face. He is still having pain from the procedure itself. Based on the fact that he recently had surgery should be on prednisone. He does have significant wheezing. He is also expectorating significant amount of phlegm. He had been on the azithromycin 3 times a week for the immuno deficiency and his chronic bronchitis. Although for some reason he stopped it. Will go ahead and switch him to Levaquin at this time and once he has completed that he should go back in the azithromycin. 04/14/2022 the patient is here for a pulmonary follow-up visit. He was seen about 3 weeks ago. He started to feel little bit better. Unfortunately he has not received the Fasenra as of yet. I did call the stairs to the pharmacy and they did have it available. We made arrangements for him to receive it today. He has been weaning off the prednisone down to 20 mg of prednisone. He has noticed increasing chest tightness and cough. He has been using his nebulized therapy and also using his respiratory therapy. He did complete the antibiotics. Will go ahead and restart the azithromycin at this time. I did provide him with 5 mg tablets of prednisone and he is going to slowly taper down the prednisone to the lowest most effective dose. Hopefully if the Billyenra starts working in a completely. 05/11/2023 the patient is here for pulmonary follow-up visit. He continues to do very well back in the fall he did have an exacerbation and had to get a sick visit. Otherwise he has not required any additional prednisone. The Fasenra injections have been affecting beneficial. He does use it every 8 weeks. In the meantime he does have the nebulized therapy that keeps him at baseline. Recently had a cold therefore started developing increasing cough chest congestion wheezing but did not require any prednisone or antibiotics which is reassuring. He had a last CT scan back in 2021 demonstrating a 1.5 cm subsolid nodule. This is something very important to repeat. Therefore I will put in for CT scan of the chest now to follow-up with that abnormal nodule. Could be a premalignant nodule. Therefore, after he gets his CT scan a review. Otherwise follow-up in 6-8 months. [facility] Medical History (Updated 11/22/22 @ 09:34 by Floridalma Moya NP) Asthma-COPD overlap syndrome Asthma Hypogammaglobulinemia CAD (coronary artery disease) Aortic regurgitation Aortic stenosis Pulmonary nodules Bronchiectasis Bronchitis COPD (chronic obstructive pulmonary disease) Surgical History (Updated 06/02/21 @ 15:13 by Margie Montague PA-C) History of left knee surgery History of lithotripsy Social History (Updated 11/19/22 @ 13:28 by Francesca Mccormack LPN) Patient Tobacco Use Status: Former Tobacco user Quit Date: 1969 Tobacco use type: Cigarette Review of Systems Const Denies night sweats Eyes Denies change in vision ENT Denies change in voice, Denies lip swelling, Denies mouth pain, Reports nasal congestion, Reports nasal discharge and Denies tongue swelling Card Denies chest pain, Reports leg edema and Reports dyspnea on exertion Resp Denies change in phlegm color, Denies chest congestion, Reports cough, Denies excessive phlegm production, Reports dyspnea on exertion and Reports wheezing GI Denies abdominal pain Musc Reports back pain Skin/Breast Reports pruritus and Reports rash Neuro Denies Neuro-related abnormal movements Psych Denies no additional complaints Missael/Lymph Denies easy bleeding and Denies lymphadenopathy Aller/Immun Denies lip swelling, Denies tongue swelling and Reports wheezing Physical Exam Vital Signs: Last Vital Signs Pulse 71 05/11/23 09:09 BP 124/70 05/11/23 09:09 Pulse Ox 94 05/11/23 09:09 Oxygen Delivery Method Room Air 05/11/23 09:09 BMI result Body Mass Index 27.3 Const General: alert Neck Neck: Yes normal visual inspection, Yes full ROM and Yes no lymphadenopathy Chest Chest palpation & inspection: normal inspection of the chest Resp Auscultation: rhonchi, no wheezes and diminished lung sounds Cardio Rate: regular rate Rhythm: regular rhythm Heart sounds: S1 normal heart sound present and S2 normal heart sound present GI Palpation (GI): Soft to palpation and nontender Auscultation: normal bowel sounds Skin General skin exam: rashes and/or lesions noted Assessment & Plan Assessment & Plan (1) Asthma: Comment: Severe persistent asthma now with a topic dermatitis. Likely allergic. His eosinophil levels are elevated. Code(s): J45.909 - Unspecified asthma, uncomplicated Qualifiers: Asthma complication type: with acute exacerbation Asthma persistence: persistent Asthma severity: severe Qualified Code(s): J45.51 - Severe persistent asthma with (acute) exacerbation (2) Bronchiectasis: Code(s): J47.9 - Bronchiectasis, uncomplicated Qualifiers: Bronchiectasis type: with acute lower respiratory infection Qualified Code(s): J47.0 - Bronchiectasis with acute lower respiratory infection (3) Pulmonary nodules: Code(s): R91.8 - Other nonspecific abnormal finding of lung field (4) Bronchitis: Code(s): J40 - Bronchitis, not specified as acute or chronic (5) 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 (6) Asthma-COPD overlap syndrome: Code(s): J44.9 - Chronic obstructive pulmonary disease, unspecified Plan continue fasenra benzonates as needed CT chest to assess pulmonary nodule measureing 1.3-1.4cm 05/2022 continue DuoNeb 4 times a day continue budesonide twice a day MYLA as needed CPT with flutter valve continue Daliresp 500mcg follow-up in [address]: [address] chest wo IV con Today R91.8 - Other nonspecific abnormal finding of lung field Coding Level of Care Code Est Pt Level 4 (26075) Diagnoses Severe persistent asthma with acute exacerbation J45.51 Asthma complication type: with acute exacerbation Asthma persistence: persistent Asthma severity: severe Bronchiectasis with acute lower respiratory infection J47.0 Bronchiectasis type: with acute lower respiratory infection Pulmonary nodules R91.8 Bronchitis J40 Hypogammaglobulinemia D80.1 Asthma-COPD overlap syndrome J44.9 Time Spent (min) 18
== END 2023-05-11 09:23 | disposition home or self-care (01) ==
PROVIDERS: PCP Physician Assistant Medical; Visit Provider Hospitalist
DX: J45.51 Severe persistent asthma with (acute) exacerbation (principal); J47.0 Bronchiectasis with acute lower respiratory infection; R91.8 Other nonspecific abnormal finding of lung field; J40 Bronchitis, not specified as acute or chronic; D80.1 Nonfamilial hypogammaglobulinemia; J44.9 Chronic obstructive pulmonary disease, unspecified
CPT/HCPCS: 99214

== ENCOUNTER → 2023-05-11 09:04 | Outpatient (BNVA) | payer MEDICARE, SELFPAY | PROVIDERS: PCP Physician Assistant Medical; Visit Provider Hospitalist | DX: J45.51 Severe persistent asthma with (acute) exacerbation (principal); J47.0 Bronchiectasis with acute lower respiratory infection; J44.9 Chronic obstructive pulmonary disease, unspecified; J40 Bronchitis, not specified as acute or chronic; R91.8 Other nonspecific abnormal finding of lung field; D80.1 Nonfamilial hypogammaglobulinemia | CPT/HCPCS: 99212 ==

== ENCOUNTER 2023-06-24 12:53 | Outpatient (REF) | payer MEDICARE, SELFPAY ==
--- NOTE | ~2023-06-24 | CT_ITS ---
EXAMINATION: CT CHEST WITHOUT CONTRAST CLINICAL INFORMATION: Other nonspecific abnormal finding of lung field. COMPARISON: Chest CT 06/03/2020. TECHNIQUE: Multidetector volumetric CT imaging of the chest was done. Axial MIP volume rendering provided. Sagittal and coronal reformatted images were obtained. This CT examination was performed using dose optimization techniques as appropriate, variously including the following: *Automated exposure control *Adjustment of mA and/or kV according to patient size (this includes techniques or standardized protocols for targeted exams where dose is matched to indication/reason for exam; i.e. extremities or head) *Use of iterative reconstruction technique DLP: 177 mGy-cm FINDINGS: LUNGS: There is some minimal emphysematous changes seen and some mild bronchial thickening. There is ground-glass opacity seen in the right upper lobe, which has a cystic component, and ground-glass component as well as solid components. By my measurements this measures a maximum of 1.8 cm in greatest transverse dimension on today's exam, compared to 1.4 cm (5:240 compare prior 7:232) on the exam from 3 years ago. The solid component measures about 5 mm in size. There are some other tiny micronodules measuring 1 to 2 mm in size that are unchanged. For example, subpleural 2 mm right lower lobe (5:267 compare prior 7:263) and 3 mm right lower lobe (5:390 compare prior 7:385). MEDIASTINUM: The mediastinum is normal. CORONARY ARTERY CALCIFICATION: Mild. PLEURA: There is no pleural effusion. No pleural mass or thickening. AXILLA: No lymphadenopathy. UPPER ABDOMEN: Pneumobilia is again noted. Cystic areas in the left lobe of the liver likely represent dilated left-sided ducts with atrophy of the left lobe of the liver; however, a mass cannot be excluded. Calcifications are seen in the kidneys which may be renovascular. OSSEOUS STRUCTURES: Moderate degenerative changes are seen throughout the spine. CT/CT chest wo IV con IMPRESSION: 1. The right upper lobe opacity has increased in size from 1.4 cm to 1.8 cm. Short-term follow-up in 6 months is recommended. 2. There is a question of a mass in the left lobe of the liver (versus dilated bile ducts with left lobe atrophy). Hepatic MRI is recommended for further evaluation. According to the UPDATED 2017 Fleischner Society recommendations, the advised follow-up imaging for a single part solid nodule measuring 6 mm or greater is: CT at 3 to 6 months to confirm persistence. If unchanged and the solid component remains <6 mm, annual CT should be performed for 5 years. If persistent and the solid component is 6-9 mm, suspicious, or growing then consider biopsy/resection. If persistent and solid component is >9 mm, then recommend follow-up PET/CT.
== END 2023-06-24 12:54 | disposition home or self-care (01) ==
LOC: HO.CT 12:53
PROVIDERS: PCP Physician Assistant Medical; Visit Provider Hospitalist
DX: R91.8 Other nonspecific abnormal finding of lung field (principal)
CPT/HCPCS: 71250

== ENCOUNTER 2023-07-29 15:06 | Outpatient (REF) | payer MEDICARE, SELFPAY ==
--- NOTE | ~2023-07-29 | MR_ITS ---
EXAMINATION: MR ABDOMEN WITHOUT AND WITH CONTRAST CLINICAL INFORMATION: Hepatomegaly, left hepatic lobe liver mass lesion found on recent CT scan COMPARISON: CT scan of chest on 06/24/2023 TECHNIQUE: Examination was performed in a high field strength MRI scanner. Multiplanar multiphasic imaging of the abdomen was performed without IV contrast enhancement. Multiphasic Axial T1 weighted fat suppressed images of the upper abdomen were obtained after IV injection of 9 mL Gadavist. Coronal T1 weighted fat-suppressed images of the abdomen were obtained following the dynamic axial series. FINDINGS: LIVER: The liver shows marked atrophy of the left hepatic lobe lateral segment 2 and 3. No suspicious observation with arterial phase hyperenhancement could be seen in the liver. The calculated hepatic fat percentage is 3.1%, compatible with normal. HEPATOBILIARY: Gallbladder is not visualized. There is mild dilatation of intrahepatic bile ducts, most prominent in the left hepatic lobe filled with signal voids consistent with pneumobilia. Common bile duct is not dilated. PANCREAS: A tiny T2 hyperintense nonenhancing cystic lesion is seen at anterior pancreatic tail, measuring 0.4 cm in AP diameter, 0.3 cm in width. SPLEEN: Spleen is normal in size without focal lesion. ADRENAL: Bilateral adrenal glands are normal in shape and size. KIDNEYS: Bilateral kidneys are normal in size with a T2 hyperintense nonenhancing simple cyst and inferior left renal pole, for which no follow up imaging is recommended. Multilevel advanced degenerative lumbar disc disease and moderate to marked posterior disc protrusions are seen from L1-L2 to L4-L5, could cause multilevel significant spinal stenosis with additional impingement by hypertrophic ligamentum flavum. MR/MR abdomen wo/w con IMPRESSION: 1. Marked atrophy of the left hepatic lobe lateral segment 2 and 3. No suspicious observation with arterial phase hyperenhancement could be seen in the liver. 2. Mild dilatation of intrahepatic bile ducts, most prominent in the left hepatic lobe filled with signal voids consistent with pneumobilia. Common bile duct is not dilated. 3. Status post cholecystectomy. 4. A tiny T2 hyperintense nonenhancing cystic lesion is seen at anterior pancreatic tail, measuring 0.4 cm in AP diameter, 0.3 cm in width, could represent tiny branch duct intraductal papillary mucinous neoplasm. Follow-up with pre and postcontrast MRI abdomen with MRCP sequence every 2 years x2 and stopped if stable is recommended by [employer]. 5. Inferior left renal pole simple cyst is seen, for which no follow up imaging is recommended. 6. Multilevel advanced degenerative lumbar disc disease and moderate to marked posterior disc protrusions are seen from L1-L2 to L4-L5, could cause multilevel significant spinal stenosis with additional impingement by hypertrophic ligamentum flavum.
[2023-07-29] MEDS: gadobutroL 10 ML VIAL IVPUSH (15:44)
== END 2023-07-29 15:07 | disposition home or self-care (01) ==
LOC: HO.MRI 15:06
PROVIDERS: PCP Physician Assistant Medical; Visit Provider Hospitalist
DX: R16.0 Hepatomegaly, not elsewhere classified (principal)
CPT/HCPCS: 74183; A9585

== ENCOUNTER 2024-01-11 10:08 | Outpatient (AMB) | payer MEDICARE, SELFPAY ==
[2024-01-11 10:11] VITALS: BP 114/50; PULSE 53; O2SAT 94
--- NOTE | 2024-01-11 10:11 | A.OFFVIS_ITS ---
Vital Signs 01/11/24 10:11 Weight 178 lb 9.191 oz BP 114/50 L Blood Pressure Location Rt brachial Position Sitting Pulse 53 Pulse Source Pulse Oximeter Pulse Oximetry (%) 94 Oxygen Delivery Method Room Air Intake Visit Reasons: persistent cough Intake Note: was started on Breo 100mcg in rehab Allergies acetaminophen [From Percocet] Allergy (Severe, Verified 01/11/24 10:16) Anxiety oxycodone [From Percocet] Allergy (Severe, Verified 01/11/24 10:16) Anxiety Medication List - Last Reconciled 01/11/24 by Anca Fountain LPN albuterol sulfate 2.5 mg (3 mL) inhalation BID atorvastatin mg PO benralizumab 30 mg subcut Q8W benzonatate 100 mg PO BID PRN 30 days budesonide 0.5 mg (2 mL) inhalation BID 30 days celecoxib 200 mg PO DAILY dextromethorphan-guaifenesin 5-100 mg/5 mL (Robitussin Cough-Chest Congestion DM) 10 mL PO Q6H PRN 14 days diphenhydramine HCl (Benadryl Allergy) 25 mg PO BID PRN 30 days finasteride 5 mg PO DAILY fluticasone furoate-vilanterol 100-25 mcg/dose (Breo Ellipta) 1 inh inhalation DAILY fluticasone propionate 50 mcg/actuation sprays intranasal immun glob G(IgG)-gly-IgA ov50 10 % (Gammagard Liquid) 40 grams IV Q4W 4 weeks ipratropium-albuterol 0.5 mg-3 mg(2.5 mg base)/3 mL USE 1 VIAL VIA NEBULIZER 4 TIMES A DAY lorazepam 1 mg PO methimazole 5 mg PO DAILY metoprolol succinate ER 25 mg PO DAILY nebulizers As directed omeprazole 20 mg PO DAILY roflumilast (Daliresp) 500 mcg PO DAILY 30 days sertraline 50 mg PO DAILY tacrolimus 0.1% topical BID tamsulosin mg PO HPI Comments Details: The patient is a 84-year-old gentleman with a cardiac history including mild aortic stenosis and moderate aortic regurgitation and severe persistent asthma. He has been complaining of progressive dyspnea on exertion. He stays very active but lately he has been noticing that he has been getting more short of breath with the same activity. He has had a full cardiac evaluation. His echocardiogram demonstrated the above. His EF is normal. He also underwent pulmonary function studies demonstrating a mild obstructive ventilatory defect consistent with asthma COPD overlap syndrome. He also underwent a CT scan of the chest that we personally reviewed here in the office with multiple findings including pulmonary nodules largest 1 measuring more than 2 cm in size in the right middle lobe. He also has evidence of bronchiectasis primarily in the right middle lobe and also in the lower lung zones. Some tree-in-bud in also noted and mucus plugging. In addition to the some minimal emphysema. The findings are suspicious for smoldering infection. However, with this history of smoking and the nodular densities will need to rule out malignancy at this time. The patient does have appears to have some bronchiectasis to therefore will focus on CPT. We did send a sputum culture that was positive for Moraxella catarrhalis. His sputum for AFB demonstrating no evidence of any acid-fast organisms. But, which still waiting for the culture. The main take up to 6-8 weeks. 03/26/2022 the patient is here for a pulmonary follow-up visit. Recently he was evaluated in the ER at [facility]. He had worsening respiratory symptoms. There she did have an x-ray demonstrating no acute disease. She was given prednisone and he was discharged with a COPD exacerbation. The patient has been having difficulty with breathing lately. Unfortunately he has not continue the Fasenra as prescribed. There was some miscommunication about how he is to receive the medication. He had to call to get a delivery. Will go ahead and call the company as well to make sure that he is receiving the delivery. In the meantime he recently had a surgical excision of a melanoma on the face. He is still having pain from the procedure itself. Based on the fact that he recently had surgery should be on prednisone. He does have significant wheezing. He is also expectorating significant amount of phlegm. He had been on the azith romycin 3 times a week for the immuno deficiency and his chronic bronchitis. Although for some reason he stopped it. Will go ahead and switch him to Levaquin at this time and once he has completed that he should go back in the azithromycin. 04/14/2022 the patient is here for a pulmonary follow-up visit. He was seen about 3 weeks ago. He started to feel little bit better. Unfortunately he has not received the Fasenra as of yet. I did call the stairs to the pharmacy and they did have it available. We made arrangements for him to receive it today. He has been weaning off the prednisone down to 20 mg of prednisone. He has noticed increasing chest tightness and cough. He has been using his nebulized therapy and also using his respiratory therapy. He did complete the antibiotics. Will go ahead and restart the azithromycin at this time. I did provide him with 5 mg tablets of prednisone and he is going to slowly taper down the prednisone to the lowest most effective dose. Hopefully if the Fasenra starts working in a completely. 05/11/2023 the patient is here for pulmonary follow-up visit. He continues to do very well back in the fall he did have an exacerbation and had to get a sick visit. Otherwise he has not required any additional prednisone. The Fasenra injections have been affecting beneficial. He does use it every 8 weeks. In the meantime he does have the nebulized therapy that keeps him at baseline. Recently had a cold therefore started developing increasing cough chest congestion wheezing but did not require any prednisone or antibiotics which is reassuring. He had a last CT scan back in 2021 demonstrating a 1.5 cm subsolid nodule. This is something very important to repeat. Therefore I will put in for CT scan of the chest now to follow-up with that abnormal nodule. Could be a premalignant nodule. Therefore, after he gets his CT scan a review. Otherwise follow-up in 6-8 months. 01/11/2024 the patient is here for a pulmonary follow-up visit. Overall the patient is doing better. The patient states that he had a bad fall resulting in intracranial bleed requiring a transfer from [facility] to [facility] for further evaluation care. He did not need any invasive interventions which is reassuring. Since he has been busy with all these other medical issues he has not been kept keeping up with the Fasenra injection. He has not had an months. While in the hospital he was started on Breo. Feels like it is working okay. Will go ahead and optimize him to [facility] specially since he has issues right now with them wheezing rhonchi. He did have a chest a recently and he was told he has pneumonia. He was started on amoxicillin. He will monitor closely symptoms. If he is no better he can always call and we can send him a different antibiotic. The patient will continue with his nebulized therapy and will follow-up in 3-4 months. If he has any issues prior to that he will call for an earlier assessment. For now will hold off on biologic therapies. [facility] Medical History (Updated 07/21/23 @ 09:12 by Greg Medley MD) Asthma-COPD overlap syndrome Asthma Hypogammaglobulinemia CAD (coronary artery disease) Aortic regurgitation Aortic stenosis Pulmonary nodules Bronchiectasis Bronchitis COPD (chronic obstructive pulmonary disease) Surgical History (Updated 06/02/21 @ 15:13 by Margie Montague PA-C) History of left knee surgery History of lithotripsy Social History (Updated 11/19/22 @ 13:28 by Francesca Mccormack LPN) Patient Tobacco Use Status: Former Tobacco user Tobacco use type: Cigarette Review of Systems Const Denies night sweats Eyes Denies change in vision ENT Denies change in voice, Denies lip swelling, Denies mouth pain, Reports nasal congestion, Reports nasal discharge and Denies tongue swelling Card Denies chest pain, Reports leg edema and Reports dyspnea on exertion Resp Denies change in phlegm color, Reports chest congestion, Reports cough, Denies excessive phlegm production, Reports dyspnea on exertion and Reports wheezing GI Denies abdominal pain Musc Reports back pain Skin/Breast Reports pruritus and Reports rash Neuro Denies Neuro-related abnormal movements Psych Denies no additional complaints Missael/Lymph Denies easy bleeding and Denies lymphadenopathy Aller/Immun Denies lip swelling, Denies tongue swelling and Reports wheezing Physical Exam Vital Signs: Last Vital Signs Pulse 53 01/11/24 10:11 BP 114/50 L 01/11/24 10:11 Pulse Ox 94 01/11/24 10:11 Oxygen Delivery Method Room Air 01/11/24 10:11 Const General: alert Neck Neck: Yes normal visual inspection, Yes full ROM and Yes no lymphadenopathy Chest Chest palpation & inspection: normal inspection of the chest Resp Auscultation: rhonchi, wheezes and diminished lung sounds Cardio Rate: regular rate Rhythm: regular rhythm Heart sounds: S1 normal heart sound present and S2 normal heart sound present GI Palpation (GI): Soft to palpation and nontender Auscultation: normal bowel sounds Skin General skin exam: rashes and/or lesions noted Results Reviewed Results Reviewed: personally reviewed Ct chest 11/2022 8mm RUL Assessment & Plan Assessment & Plan (1) Asthma: Comment: Severe persistent asthma now with a topic dermatitis. Likely allergic. His eosinophil levels are elevated. Code(s): J45.909 - Unspecified asthma, uncomplicated Category: Medical Qualifiers: Asthma complication type: with acute exacerbation Asthma persistence: persistent Asthma severity: severe Qualified Code(s): J45.51 - Severe persistent asthma with (acute) exacerbation (2) Bronchiectasis: Code(s): J47.9 - Bronchiectasis, uncomplicated Category: Medical Qualifiers: Bronchiectasis type: with acute lower respiratory infection Qualified Code(s): J47.0 - Bronchiectasis with acute lower respiratory infection (3) Pulmonary nodules: Code(s): R91.8 - Other nonspecific abnormal finding of lung field Category: Medical (4) Bronchitis: Code(s): J40 - Bronchitis, not specified as acute or chronic Category: Medical (5) 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 Category: Medical (6) Asthma-COPD overlap syndrome: Code(s): J44.9 - Chronic obstructive pulmonary disease, unspecified Category: Medical Plan stopped fasenra, not using start Trelegy [address] chest to assess pulmonary nodule measureing 1.3-1.4cm 05/2022. ->8mm 11/2022 continue DuoNeb 4 times a day stop budesonide twice a day MYLA as needed CPT with flutter valve continue Daliresp 500mcg will need arepeat CT chest. We will discuss once he is better during the next visit follow-up in 3-4 months Medications: New teybhgrljcg-yisalzzgj-jcyxlsop 200-62.5-25 mcg (Trelegy Ellipta) 1 inh inhalation DAILY 30 days 60 ea 12RF Coding Level of Care Code Est Pt Level 4 (80729) Complex EM visit Add On G2211 Diagnoses Severe persistent asthma with acute exacerbation J45.51 Asthma complication type: with acute exacerbation Asthma persistence: persistent Asthma severity: severe Bronchiectasis with acute lower respiratory infection J47.0 Bronchiectasis type: with acute lower respiratory infection Pulmonary nodules R91.8 Bronchitis J40 Hypogammaglobulinemia D80.1 Asthma-COPD overlap syndrome J44.9 Time Spent (min) 19
== END 2024-01-11 10:40 | disposition home or self-care (01) ==
LOC: HO.HPS 10:08
PROVIDERS: PCP Physician Assistant Medical; Visit Provider Hospitalist
DX: J45.51 Severe persistent asthma with (acute) exacerbation (principal); J47.0 Bronchiectasis with acute lower respiratory infection; R91.8 Other nonspecific abnormal finding of lung field; J40 Bronchitis, not specified as acute or chronic; D80.1 Nonfamilial hypogammaglobulinemia; J44.9 Chronic obstructive pulmonary disease, unspecified
CPT/HCPCS: 99214; G2211

== ENCOUNTER → 2024-01-11 10:08 | Outpatient (BNVA) | payer MEDICARE, SELFPAY | PROVIDERS: PCP Physician Assistant Medical; Visit Provider Hospitalist | DX: J45.51 Severe persistent asthma with (acute) exacerbation (principal); J47.0 Bronchiectasis with acute lower respiratory infection; J40 Bronchitis, not specified as acute or chronic; R91.8 Other nonspecific abnormal finding of lung field; D80.1 Nonfamilial hypogammaglobulinemia; R05.3 Chronic cough | CPT/HCPCS: 99212 ==

== ENCOUNTER 2024-03-16 14:37 | Outpatient (AMB) | payer MEDICARE, SELFPAY ==
--- NOTE | 2024-03-16 14:39 | MHC.OFFVIS ---
Vital Signs 03/16/24 14:40 Height 5 ft 6 in Weight 184 lb 1.376 oz BMI 29.7 BP 126/62 Blood Pressure Location Rt brachial Position Sitting Pulse 73 Pulse Source Pulse Oximeter Pulse Oximetry (%) 96 Oxygen Delivery Method Room Air Intake Visit Reasons: Pulmonary nodules Allergies acetaminophen [From Percocet] Allergy (Severe, Verified 03/16/24 14:42) Anxiety oxycodone [From Percocet] Allergy (Severe, Verified 03/16/24 14:42) Anxiety HPI Comments Details: The patient is a 84-year-old gentleman with a cardiac history including mild aortic stenosis and moderate aortic regurgitation and severe persistent asthma. He has been complaining of progressive dyspnea on exertion. He stays very active but lately he has been noticing that he has been getting more short of breath with the same activity. He has had a full cardiac evaluation. His echocardiogram demonstrated the above. His EF is normal. He also underwent pulmonary function studies demonstrating a mild obstructive ventilatory defect consistent with asthma COPD overlap syndrome. He also underwent a CT scan of the chest that we personally reviewed here in the office with multiple findings including pulmonary nodules largest 1 measuring more than 2 cm in size in the right middle lobe. He also has evidence of bronchiectasis primarily in the right middle lobe and also in the lower lung zones. Some tree-in-bud in also noted and mucus plugging. In addition to the some minimal emphysema. The findings are suspicious for smoldering infection. However, with this history of smoking and the nodular densities will need to rule out malignancy at this time. The patient does have appears to have some bronchiectasis to therefore will focus on CPT. We did send a sputum culture that was positive for Moraxella catarrhalis. His sputum for AFB demonstrating no evidence of any acid-fast organisms. But, which still waiting for the culture. The main take up to 6-8 weeks. 03/26/2022 the patient is here for a pulmonary follow-up visit. Recently he was evaluated in the ER at [facility]. He had worsening respiratory symptoms. There she did have an x-ray demonstrating no acute disease. She was given prednisone and he was discharged with a COPD exacerbation. The patient has been having difficulty with breathing lately. Unfortunately he has not continue the Fasenra as prescribed. There was some miscommunication about how he is to receive the medication. He had to call to get a delivery. Will go ahead and call the company as well to make sure that he is receiving the delivery. In the meantime he recently had a surgical excision of a melanoma on the face. He is still having pain from the procedure itself. Based on the fact that he recently had surgery should be on prednisone. He does have significant wheezing. He is also expectorating significant amount of phlegm. He had been on the azithromycin 3 times a week for the immuno deficiency and his chronic bronchitis. Although for some reason he stopped it. Will go ahead and switch him to Levaquin at this time and once he has completed that he should go back in the azithromycin. 04/14/2022 the patient is here for a pulmonary follow-up visit. He was seen about 3 weeks ago. He started to feel little bit better. Unfortunately he has not received the Fasenra as of yet. I did call the stairs to the pharmacy and they did have it available. We made arrangements for him to receive it today. He has been weaning off the prednisone down to 20 mg of prednisone. He has noticed increasing chest tightness and cough. He has been using his nebulized therapy and also using his respiratory therapy. He did complete the antibiotics. Will go ahead and restart the azithromycin at this time. I did provide him with 5 mg tablets of prednisone and he is going to slowly taper down the prednisone to the lowest most effective dose. Hopefully if the Fasenra starts working in a completely. 05/11/2023 the patient is here for pulmonary follow-up visit. He continues to do very well back in the fall he did have an exacerbation and had to get a sick visit. Otherwise he has not required any additional prednisone. The Fasenra injections have been affecting beneficial. He does use it every 8 weeks. In the meantime he does have the nebulized therapy that keeps him at baseline. Recently had a cold therefore started developing increasing cough chest congestion wheezing but did not require any prednisone or antibiotics which is reassuring. He had a last CT scan back in 2021 demonstrating a 1.5 cm subsolid nodule. This is something very important to repeat. Therefore I will put in for CT scan of the chest now to follow-up with that abnormal nodule. Could be a premalignant nodule. Therefore, after he gets his CT scan a review. Otherwise follow-up in 6-8 months. 01/11/2024 the patient is here for a pulmonary follow-up visit. Overall the patient is doing better. The patient states that he had a bad fall resulting in intracranial bleed requiring a transfer from [facility] to [facility] for further evaluation care. He did not need any invasive interventions which is reassuring. Since he has been busy with all these other medical issues he has not been kept keeping up with the Fasenra injection. He has not had an months. While in the hospital he was started on Breo. Feels like it is working okay. Will go ahead and optimize him to [facility] since he has issues right now with them wheezing rhonchi. He did have a chest a recently and he was told he has pneumonia. He was started on amoxicillin. He will monitor closely symptoms. If he is no better he can always call and we can send him a different antibiotic. The patient will continue with his nebulized therapy and will follow-up in 3-4 months. If he has any issues prior to that he will call for an earlier assessment. For now will hold off on biologic therapies. 03/16/2024 the patient is here for a pulmonary follow-up visit. He has had worsening cough now for several months. Although today is actually little better for him. He is currently grieving the loss of his that during . She was not hospice care. The patient has been using his respiratory therapy. He is no longer doing any biologics. He has chest congestion regular basis moderate severity. Will try getting sputum sample and we actually were able to and we sent to the laboratory for analysis. He has had a history of staph aureus so place him on doxycycline to treat him for suppurative airway disease. In the meantime will wait for the cultures to come out. If the sputum is not available I did give him a cup that he can take home in case we need to repeat it. As far as imaging studies is last CT scan was back in 2023 where he had the pulmonary nodule intermediate size. Will go ahead and request a CT scan at this time to follow-up without nodule. [facility] Medical History (Updated 07/21/23 @ 09:12 by Greg Medley MD) Asthma-COPD overlap syndrome Asthma Hypogammaglobulinemia CAD (coronary artery disease) Aortic regurgitation Aortic stenosis Pulmonary nodules Bronchiectasis Bronchitis COPD (chronic obstructive pulmonary disease) Surgical History (Updated 06/02/21 @ 15:13 by Margie Montague PA-C) History of left knee surgery History of lithotripsy Social History Patient Tobacco Use Status: Former Tobacco user Tobacco use type: Cigarette Review of Systems Const Denies night sweats Eyes Denies change in vision ENT Denies change in voice, Denies lip swelling, Denies mouth pain, Reports nasal congestion, Reports nasal discharge and Denies tongue swelling Card Denies chest pain, Reports leg edema and Reports dyspnea on exertion Resp Denies change in phlegm color, Reports chest congestion, Reports cough, Denies excessive phlegm production, Reports dyspnea on exertion and Reports wheezing GI Denies abdominal pain Musc Reports back pain Skin/Breast Reports pruritus and Reports rash Neuro Denies Neuro-related abnormal movements Psych Denies no additional complaints Missael/Lymph Denies easy bleeding and Denies lymphadenopathy Aller/Immun Denies lip swelling, Denies tongue swelling and Reports wheezing Physical Exam Vital Signs: Last Vital Signs Pulse 73 03/16/24 14:40 BP 126/62 03/16/24 14:40 Pulse Ox 96 03/16/24 14:40 Oxygen Delivery Method Room Air 03/16/24 14:40 BMI result Body Mass Index 29.7 Const General: alert Neck Neck: Yes normal visual inspection, Yes full ROM and Yes no lymphadenopathy Chest Chest palpation & inspection: normal inspection of the chest Resp Auscultation: rhonchi, wheezes and diminished lung sounds Cardio Rate: regular rate Rhythm: regular rhythm Heart sounds: S1 normal heart sound present and S2 normal heart sound present GI Palpation (GI): Soft to palpation and nontender Auscultation: normal bowel sounds Skin General skin exam: rashes and/or lesions noted Assessment & Plan Assessment & Plan (1) Asthma: Comment: Severe persistent asthma now with a topic dermatitis. Likely allergic. His eosinophil levels are elevated. Code(s): J45.909 - Unspecified asthma, uncomplicated Category: Medical Qualifiers: Asthma complication type: with acute exacerbation Asthma persistence: persistent Asthma severity: severe Qualified Code(s): J45.51 - Severe persistent asthma with (acute) exacerbation (2) Bronchiectasis: Code(s): J47.9 - Bronchiectasis, uncomplicated Category: Medical Qualifiers: Bronchiectasis type: with acute lower respiratory infection Qualified Code(s): J47.0 - Bronchiectasis with acute lower respiratory infection (3) Pulmonary nodules: Code(s): R91.8 - Other nonspecific abnormal finding of lung field Category: Medical (4) Bronchitis: Code(s): J40 - Bronchitis, not specified as acute or chronic Category: Medical (5) 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 Category: Medical (6) Asthma-COPD overlap syndrome: Code(s): J44.9 - Chronic obstructive pulmonary disease, unspecified Category: Medical Plan stopped fasenra, not using start Trelegy 200 start Doxycycline benzonates as needed CT chest to assess pulmonary nodule measureing 1.3-1.4cm 05/2022. ->8mm 11/2022, needs a CT chest continue DuoNeb 4 times a day MYLA as needed CPT with flutter valve continue Daliresp 500mcg will need a repeat CT chest. sputum cx follow-up in 3-4 months Orders: Orders Sputum Cult + Gram stain 03/16/24 J44.9 - Chronic obstructive pulmonary disease, unspecified CT chest wo IV con 03/16/24 R91.8 - Other nonspecific abnormal finding of lung field Medications: New doxycycline monohydrate 100 mg PO BID 42 tabs 0RF 21 days Refilled eljprnvdext-eemlhxqyp-jadeviuy 200-62.5-25 mcg (Trelegy Ellipta) 1 inh inhalation DAILY 60 ea 12RF 30 days Coding Level of Care Code Est Pt Level 4 (69871) Diagnoses Severe persistent asthma with acute exacerbation J45.51 Asthma complication type: with acute exacerbation Asthma persistence: persistent Asthma severity: severe Bronchiectasis with acute lower respiratory infection J47.0 Bronchiectasis type: with acute lower respiratory infection Pulmonary nodules R91.8 Bronchitis J40 Hypogammaglobulinemia D80.1 Asthma-COPD overlap syndrome J44.9 Time Spent (min) 17
[2024-03-16 14:40] VITALS: BP 126/62; PULSE 73; O2SAT 96; BMI 29.7
--- OUTSIDE RECORDS SUMMARY | 2024-03-16 14:40 | XMS_ITS ---
Author Name [facility] Organization [facility] [place] Address [address] [place] [address] Support Name Relationship Address Phone JORJE MALAVE Next of Kin [address] [place], [place] [phone] JORJE MALAVE Emergency Contact [address] [place], [place] [phone] Insurance Providers: All historical and current Section Date Range: From patient's date of to the date document was created. This section includes the names of all active insurance providers for the patient. Insurance Provider Type of Coverage Plan Name Start of Policy Coverage End of Policy Coverage Group Number Member ID Insurance Provider's Telephone Number Policy Aguero's Name Patient's Relationship to Policy Aguero [facility] (WNR) MEDICARE ADVANTAGE [facility]) Mar 07, 2011 [id number] ANANDA,LER OLGA PATIENT Selected Encounter This section includes the information on record at [place] for the Encounter. Date/Time Encounter Type Encounter Description Reason Pro vider Source Feb 14, 2024 09:22 AM Outpatient Encounter PRIMARY CARE/MEDICINE IHE Encounter Template Text not used by [place] Plan of Treatment: Future Appointments (+ 6 months) and Future Tests (+/- 45 days) The Plan of Treatment section includes future care activities for the patient from all [place] treatmentfacilities. This section includes future appointments and future orders which are active, pending or scheduled. Future Appointments This section includes appointments that were scheduled to occur 6 months from the date of the Encounter, up to a maximum of 20 appointments. The data comes from all [place] treatment facilities. Appointment Date/Time Appointment Type Appointme nt Facility Name Mar 15, 2024 11:00 AM AMBULATORY - MEDICINE [facility] Advance Directives: All historical and current Section Date Range: From patient's date of to the date document was created. This section includes ALL of a patient's completed or amended VA Advance and Rescinded Directives. The entries below indicate that a directive exists for the patient, but an actual copy is not included with this document. The data comes from all [place] facilities. Date Advance Directives Provider Source Mar 15, 2024 ADVANCE DIRECTIVE DIANA CASILLAS Encounter Notes: All associated encounter notes This section contains the clinical notes associated to the Encounter. Date/Time Encounter Note(s) Provider Source Feb 14, 2024 09:23 AM LETTERS: LOCAL TITLE: PATIENT LETTER (B) STANDARD TITLE: LETTERS DATE OF NOTE: FEB 14, 2024@09:23 ENTRY DATE: FEB 14, 2024@09:23:58 AUTHOR: KVNG LYONIGNER: URGENCY: STATUS: COMPLETED Welcome to Patient Aligned Care Team PACT 3 ANGY CABRERA . Prior to meeting you at your new patient appointment we are requesting some of your past medical history so that we may provide you with the exceptional care you deserve. Please note that it is very helpful to have these documents at least two days prior to your appointment date as the more information we have the better we will be able to meet your needs: * Last History & Physical * Immunization records * Medication list * Diagnosis list * Most recent labs * Diagnostic screens (Colonoscopy, Abdominal Aortic Aneurysm screen, Mammograms, PAPS, etc.) You may either drop the requested records off in person to [address] [place] [address] or you may have them faxed to: [phone] ATTN: PACT 3 *Also please complete the enclosed new patient packet and drop it off at our [place] location: [address] [place] [address]* If you have any questions please do not hesitate to contact the Department of [place] Affairs call center at . We look forward to providing your health care! KVNG LYON Feb 14, 2024 09:22 AM ADMINISTRATIVE NOT E: LOCAL TITLE: ADMINISTRATIVE NOTE STANDARD TITLE: ADMINISTRATIVE NOTE DATE OF NOTE: FEB 14, 2024@09:22 ENTRY DATE: FEB 14, 2024@09:22:50 AUTHOR: KVNG LYON EXP COSIGNER: URGENCY: STATUS: COMPLETED SALES AND EVENTS COORDINATOR APPT BOOKED 03/15/23 11SM 60 MINS RTC TO PACT 5 SALES AND EVENTS COORDINATOR PACKET MAILED APPT LETTER ATTACHED NO NON VA PROVIDER. /vicki/ KVNG STARKS Signed: 02/14/2024 09:23 Receipt Acknowledged By: 02/14/2024 11:51 /vicki/ KESHAWN LYNNE, RN REGISTERED NURSE for BARBARA CERRATO 02/14/2024 10:48 /es/ DAVID WINN LPN LICENSED PRACTICAL NURSE KVNG LYON BALDWYN
--- OUTSIDE RECORDS SUMMARY | 2024-03-16 14:40 | XMS_ITS | Encounter Summary ---
Author Name [facility] [place] Organization [facility] [place] Address [address] [place] [address] Support Name Relationship Address Phone JORJE MALAVE Next of Kin [address] [place], [place] [phone] JORJE MALAVE Emergency Contact [address] [place], [place] [phone] Insurance Providers: All historical and current Section [...] Name Patient's Relationship to Policy Aguero [facility] (WNR) MEDICARE ADVANTAGE [facility] ([facility]) Mar 07, 2011 [id number] ANANDA,LER OLGA PATIENT Selected Encounter This section includes the information on record at [place] for the Encounter. Date/Time Encounter Type Encounter Description Reason Pro vider Source Dec 26, 2023 12:00 AM Outpatient Encounter EVENT (HISTORICAL) IHE Encounter Template Text not used by [place] Plan of Treatment: Future Appointments (+ 6 months) and Future Tests (+/- 45 days) The Plan of Treatment section includes future care activities for the patient from all [place] treatmentfacilities. This section includes future appointments and future orders which are active, pending or scheduled. Future Appointments This section includes appointments that were scheduled to occur 6 months from the date of the Encounter, up to a maximum of 20 appointments. The data comes from all [place] treatment facilities. Appointment Date/Time Appointment Type Appointme nt Facility Name Mar 15, 2024 11:00 AM AMBULATORY - MEDICINE [facility] Immunizations: All administered on the encounter date This section contains immunizations associated to the Encounter. Immunization Series Date Issued Reaction Comments INFLUENZA, UNSPECIFIED FORMULATION Dec 26, 2023 Advance Directives: All historical and current Section Date Range: From patient's date of to the date document was created. This section includes ALL of a patient's completed or amended [place] Advance and Rescinded Directives. The entries below indicate that a directive exists for the patient, but an actual copy is not included with this document. The data comes from all [place] facilities. Date Advance Directives Provider Source Mar 15, 2024 ADVANCE DIRECTIVE DIANA CASILLAS
--- OUTSIDE RECORDS SUMMARY | 2024-03-16 14:40 | XMS_ITS | Encounter Summary ---
Author Name [facility] [place] Organization [place] Address [address] [place] [address] Support Name Relationship Address Phone JORJE MALAVE Next of Kin [address] [place], [place] [phone] JORJE MALAVE Emergency Contact [address] [place] [phone] Insurance Providers: All historical and current Section Date Range: From patient's date of to the date document was created. This section includes the names of all active insurance providers for the patient. Insurance Provider Type of Coverage Plan Name Start of Policy Coverage End of Policy Coverage Group Number Member ID Insurance Provider's Telephone Number Policy Aguero's Name Patient's Relationship to Policy Aguero [facility] (WNR) MEDICARE ADVANTAGE [facility] (R) Mar 07, 2011 [id number] PABLO MALAVE OLGA PATIENT Selected Encounter This section includes the information on record at [place] for the Encounter. Date/Time Encounter Type Encounter Description Reason Pro vider Source Mar 15, 2024 12:28 PM Outpatient Encounter PRIMARY CARE/MEDICINE IHE Encounter Template Text not used by [place] Advance Directives: All historical and current Section Date Range: From patient's date of to the date document was created. This section includes ALL of a patient's completed or amended [place] Advance and Rescinded Directives. The entries below indicate that a directive exists for the patient, but an actual copy is not included with this document. The data comes from all [place] facilities. Date Advance Directives Provider Source Mar 15, 2024 ADVANCE DIRECTIVE DIANA CASILLAS Encounter Notes: All associated encounter notes This section contains the clinical notes associated to the Encounter. Date/Time Encounter Note(s) Provider Source Mar 15, 2024 12:47 PM ADVANCE DIRECTIVE: LOCAL TITLE: ADVANCE DIRECTIVE STANDARD TITLE: ADVANCE DIRECTIVE DATE OF NOTE: MAR 15, 2024@12:47 ENTRY DATE: MAR 15, 2024@12:47:13 AUTHOR: DIANA CASILLAS EXP COSIGNER: URGENCY: STATUS: COMPLETED [place] Advance Directive Form [id number] Advance directive reviewed, forwarded to [facility] for scanning. Name of Healthcare Agent: WINTER MALAVE Relationship to : SON Name of Alternate Healthcare Agent: REGINA MALAVE Relationship to [place]: SON /vicki/ DIANA CASILLAS [employer]ED INDUSTRIAL ENGINEERING INTERN Signed: 03/15/2024 12:53 DIANA CASILLAS Mar 15, 2024 12:28 PM CLINICAL WARNING: LOCAL TITLE: COMMUNICATION AUTHORIZATION STANDARD TITLE: CLINICAL WARNING DATE OF NOTE: MAR 15, 2024@12:28 ENTRY DATE: MAR 15, 2024@12:28:51 AUTHOR: DIANA CASILLAS EXP COSIGNER: URGENCY: STATUS: COMPLETED Family/Caregiver Name: Primary: WINTER MALAVE Secondary: REGINA MALAEV Tertiary: Authorized Clinic & Topics: All Clinic's & Topics: All Care/Coordination Primary Care: All Care/Coordination Mental Health: All Care/Coordination Specialty Care: All Care/Coordination [id number] Protected Info: [X] Drug Abuse [X] Alcohol Abuse [X] HIV [X] Sickle Cell Expiration: Date: [ ] At [X] Through [ ] At end of care /mirlande CASILLAS ADV[employer]ED INDUSTRIAL ENGINEERING INTERN Signed: 03/15/2024 12:37 DIANA CASILLAS
--- OUTSIDE RECORDS SUMMARY | 2024-03-16 14:40 | XMS_ITS | Encounter Summary ---
Author Name Department of [place] Affairs ([place] Organization Department of [place] Address [address] [place] [address] Support Name Relationship Address Phone JORJE MALAVE Next of Kin [address] [place], [place] [phone] JORJE MALAVE Emergency Contact [address] [place], [place] [phone] Insurance Providers: All historical and current Section Date Range: From patient's date of to the date document was created. This section includes the names of all active insurance providers for the patient. Insurance Provider Type of Coverage Plan Name Start of Policy Coverage End of Policy Coverage Group Number Member ID Insurance Provider's Telephone Number Policy Aguero's Name Patient's Relationship to Policy Aguero [facility] (WNR) MEDICARE ADVANTAGE [facility] (WNR) Mar 07, 2011 [id number] PABLO MALAVE PATIENT Selected Encounter This section includes the information on record at [place] for the Encounter. Date/Time Encounter Type Encounter Description Reason Pro vider Source August 04, 2023 09:37 AM Outpatient Encounter COMMUNITY CARE CONSULT IHE Encounter Template Text not used by VA Advance Directives: All historical and current Section Date Range: From patient's date of to the date document was created. This section includes ALL of a patient's completed or amended [place] Advance and Rescinded Directives. The entries below indicate that a directive exists for the patient, but an actual copy is not included with this document. The data comes from all [place] facilities. Date Advance Directives Provider Source Mar 15, 2024 ADVANCE DIRECTIVE DIANA CASILLAS Encounter Notes: All associated encounter notes This section contains the clinical notes associated to the Encounter. Date/Time Encounter Note(s) Provider Source August 04, 2023 09:37 AM NONVA NOTE: LOCAL TITLE: [facility] PRESENTING CARE COORD PLAN STANDARD TITLE: NONVA NOTE DATE OF NOTE: AUGUST 04, 2023@09:37 ENTRY DATE: AUGUST 04, 2023@09:37:19 AUTHOR: MARTINEZ VANG EXP COSIGNER: URGENCY: STATUS: COMPLETED Emergency Notification Intake Date Presenting to the Facility: July Method of Contact: Notified from [facility] worklist Notification ID: [id number] [facility] Referral #: [facility] [place] Name: Hospital: [facility] Address: City: [place] State: [place] Zip Code: Phone : Community Facility Point of Contact: Name: William Phone: Chief complaint: ABDOMINAL PAIN Primary Diagnosis: KIDNEY STONE Disposition Admitted Route of Admission: ER Date of Admission: July Admitting Diagnosis: KIDNEY STONE [facility] Provider: Confirm Level of Care: /vicki/ MARTINEZ STARKS Signed: 08/04/2023 09:38 Receipt Acknowledged By: 08/09/2023 13:45 /vicki/ BRANT IVY Registered Nurse Etiology Teacher MARTINEZ VANG [place]
--- OUTSIDE RECORDS SUMMARY | 2024-03-16 14:40 | XMS_ITS ---
Author Name Department of [place] Organization Department [place] Address [address] [place] [address] Support Name Relationship Address Phone JORJE MALAVE Next of Kin [address] [place], [place] [phone] JORJE MALAVE Emergency Contact [address] [place] [address] Insurance Providers: All historical and current Section Date Range: From patient's date of to the date document was created. This section includes the names of all active insurance providers for the patient. Insurance Provider Type of Coverage Plan Name Start of Policy Coverage End of Policy Coverage Group Number Member ID Insurance Provider's Telephone Number Policy Aguero's Name Patient's Relationship to Policy Aguero [facility] (WNR) MEDICARE ADVANTAGE [facility] (WNR) Mar 07, 2011 [id number] PABLO MALAVE OLGA PATIENT Selected Encounter This section includes the information on record at [place] for the Encounter. Date/Time Encounter Type Encounter Description Reason Pro vider Source Dec 27, 2023 10:13 AM Outpatient Encounter COMMUNITY CARE CONSULT IHE Encounter Template Text not used by [place] Plan of Treatment: Future Appointments (+ 6 months) and Future Tests (+/- 45 days) The Plan of Treatment section includes future care activities for the patient from all [place] treatmentfacilities. This section includes future appointments and future orders which are active, pending or scheduled. Future Appointments This section includes appointments that were scheduled to occur 6 months from the date of the Encounter, up to a maximum of 20 appointments. The data comes from all [place] treatment facilities. Appointment Date/Time Appointment Type Appointme nt Facility Name Mar 15, 2024 11:00 AM AMBULATORY - MEDICINE [facility] Advance Directives: All historical and current Section Date Range: From patient's date of to the date document was created. This section includes ALL of a patient's completed or amended [place] Advance and Rescinded Directives. The entries below indicate that a directive exists for the patient, but an actual copy is not included with this document. The data comes from all [place] facilities. Date Advance Directives Provider Source Mar 15, 2024 ADVANCE DIRECTIVE DIANA CASILLAS Encounter Notes: All associated encounter notes This section contains the clinical notes associated to the Encounter. Date/Time Encounter Note(s) Provider Source Dec 27, 2023 10:13 AM NONVA NOTE: LOCAL TITLE: [facility] CARE COORD PLAN STANDARD TITLE: NONVA NOTE DATE OF NOTE: DEC 27, 2023@10:13 ENTRY DATE: DEC 27, 2023@10:13:38 AUTHOR: MARTINEZ VANG EXP COSIGNER: URGENCY: STATUS: COMPLETED Emergency Notification Intake Date Presenting to the Facility: Dec Method of Contact: Notified from [facility] worklist Notification ID: [id number] [facility] Referral #: [facility] [place] Name: Hospital: [facility] Address: City: [place] State: [place] Zip Code: Phone : [facility] Facility Point of Contact: Name: Mary Jo Phone: Chief complaint: DIZZINESS Primary Diagnosis: Disposition Unknown at time of intake note entry /vicki/ MARTINEZ STARKS Signed: 12/27/2023 10:14 Receipt Acknowledged By: * AWAITING SIGNATURE * NAVNEET WERNER * AWAITING SIGNATURE * DIANA BEAVERS * AWAITING SIGNATURE * BRANT IVY * AWAITING SIGNATURE * ARTURO ANEN DAWN MARIE TIOGA
--- OUTSIDE RECORDS SUMMARY | 2024-03-16 14:40 | XMS_ITS | Encounter Summary ---
Author Name [place] Address [address] [place] [address] Support Name Relationship Address Phone JORJE MALAVE Next of Kin [address] [place], [place] [phone] JORJE MALAVE Emergency Contact [address] [place], [place] [phone] Insurance Providers: All historical and current Section Date Range: From patient's date of to the date document was created. This section includes the names of all active insurance providers for the patient. Insurance Provider Type of Coverage Plan Name Start of Policy Coverage End of Policy Coverage Group Number Member ID Insurance Provider's Telephone Number Policy Aguero's Name Patient's Relationship to Policy Aguero [facility] (WNR) MEDICARE ADVANTAGE [facility] (WNR) Mar 07, 2011 [id number] PABLO MALAVE PATIENT Selected Encounter This section includes the information on record at [place] for the Encounter. Date/Time Encounter Type Encounter Description Reason Pro vider Source Feb 08, 2024 01:21 PM Outpatient Encounter ADMIN PAT ACTIVTIES (MASNONCT) IHE Encounter Template Text not used by [place] Plan of Treatment: Future Appointments (+ 6 months) and Future Tests (+/- 45 days) The Plan of Treatment section includes future care activities for the patient from all [place] treatmentfacilities. This section includes future appointments and future orders which are active, pending or scheduled. Future Appointments This section includes appointments that were scheduled to occur 6 months from the date of the Encounter, up to a maximum of 20 appointments. The data comes from all [place] treatment facilities. Appointment Date/Time Appointment Type Appointme nt Facility Name Mar 15, 2024 11:00 AM AMBULATORY - MEDICINE [facility] Advance Directives: All historical and current Section Date Range: From patient's date of to the date document was created. This section includes ALL of a patient's completed or amended [place] Advance and Rescinded Directives. The entries below indicate that a directive exists for the patient, but an actual copy is not included with this document. The data comes from all [place] facilities. Date Advance Directives Provider Source Mar 15, 2024 ADVANCE DIRECTIVE DIANA CASILLAS Encounter Notes: All associated encounter notes This section contains the clinical notes associated to the Encounter. Date/Time Encounter Note(s) Provider Source Feb 08, 2024 02:01 PM ADDENDUM: LOCAL TITLE: Addendum STANDARD TITLE: ADDENDUM DATE OF NOTE: FEB 08, 2024@14:01:28 ENTRY DATE: FEB 08, 2024@14:01:29 AUTHOR: ZORA FARIA EXP COSIGNER: URGENCY: STATUS: COMPLETED AMSA/RN please call to schedule for a 60 min new patient appointment within 20 days, virtual or face to face to meet new pt scheduling guidelines. Appointment needs to be scheduled on or before Feb PATIENT PHONE - [phone] No data available F/U RTC should go to SO/PACT 5 /vicki/ ZORA FARIA FORMS BUILDER OUTREACH WORKER Signed: 02/08/2024 14:03 Receipt Acknowledged By: 02/14/2024 09:22 /vicki/ KVNG STARKS === --- Original Document --- 02/08/24 CCC: SCHEDULING ADMINISTRATION: Patient Demographics Patient Name: SOPHIA MALAVE Patient Primary Phone: [phone] Patient Primary [address]: [address] [place] [address] Patient : 1940 Patient Age: 84 Call Back Number: [phone] Caller/Recipient Relation to Patient: Other If Other Describe Relation to Patient: son Caller Name: gael Scheduling Cannot Complete Scheduling Action Reason: Consult/Referral Does Not Exist Requested Service(s): Primary Care Scheduling Note Reason: Cannot Complete Appointment Request;Patient is Requesting Consult/ Referral Administrative Administrative Note Comments: Gael Desir call requesting a new patient appointment in [facility]. Reginald can be reached at , Gael can be reached at [phone] IMPORTANT: This note was created by [facility] Clinical Contact Center staff. Please do not alert the staff member by adding them as a signer for future communications. Alerts are not monitored by this user. /vicki/ DONNELL DALLAS 1 [facility] AMSA Signed: 02/08/2024 13:21 Receipt Acknowledged By: 02/08/2024 14:39 /es/ ALMA OSEGUERA [facility] FORMS BUILDER [facility] 02/13/2024 14:19 /es/ FERN BAHENA FORMS BUILDER [facility] 02/08/2024 14:01 /es/ ZORA FARIA FORMS BUILDER OUTREACH WORKER ZORA FARIA [place] [facility] [place] [facility] Feb 08, 2024 01:21 PM ADMINISTRATIVE NOT E: LOCAL TITLE: CCC: SCHEDULING ADMINISTRATION STANDARD TITLE: ADMINISTRATIVE NOTE DATE OF NOTE: FEB 08, 2024@13:21:52 ENTRY DATE: FEB 08, 2024@13:21:52 AUTHOR: DONNELL GUIDRY COSIGNER: URGENCY: STATUS: COMPLETED CCC: SCHEDULING ADMINISTRATION Has ADDENDA Patient Demographics Patient Name: SOPHIA MALAVE Patient Primary Phone: [phone] Patient Primary Address: [address] [place] [address] Patient : 1940 Patient Age: 84 Call Back Number: [phone] Caller/Recipient Relation to Patient: Other If Other Describe Relation to Patient: moe Caller Name: gael Scheduling Cannot Complete Scheduling Action Reason: Consult/Referral Does Not Exist Requested Service(s): Primary Care Scheduling Note Reason: Cannot Complete Appointment Request;Patient is Requesting Consult/ Referral Administrative Administrative Note Comments: Gael Desir call requesting a new patient appointment in [facility]. can be reached at , Gael can be reached at [phone] IMPORTANT: This note was created by [facility] Clinical Contact Center staff. Please do not alert the staff member by adding them as a signer for future communications. Alerts are not monitored by this user. /vicki/ DONNELL [place] 1 [facility] AMSA Signed: 02/08/2024 13:21 Receipt Acknowledged By: 02/08/2024 14:39 /es/ ALMA OSEGUERA MSA FORMS BUILDER, [facility] 02/13/2024 14:19 /es/ FERN BAHENA FORMS BUILDER AMSA 02/08/2024 14:01 /es/ ZORA FARIA FORMS BUILDER OUTREACH WORKER 02/08/2024 ADDENDUM STATUS: COMPLETED AMSA/RN please call to schedule for a 60 min new patient appointment within 20 days, virtual or face to face to meet new pt scheduling guidelines. Appointment needs to be scheduled on or before Feb PATIENT PHONE - [phone] No data available F/U RTC should go to SO/PACT 5 /vicki/ ZORA FARIA FORMS BUILDER OUTREACH WORKER Signed: 02/08/2024 14:03 Receipt Acknowledged By: * AWAITING SIGNATURE * KVNG LYON MARCY L [place] [facility]
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
--- OUTSIDE RECORDS SUMMARY | 2024-03-16 14:40 | XMS_ITS | Encounter Summary ---
Author Name [facility] Organization [facility] [place] Address [address] [place] [id number] Support Name Relationship Address Phone JORJE MALAVE Next of Kin [address], [place] [phone] JORJE MALAVE Emergency Contact [address], [place] [phone] Insurance Providers: All historical and current Section Date Range: From patient's date of to the date document was created. This section includes the names of all active insurance providers for the patient. Insurance Provider Type of Coverage Plan Name Start of Policy Coverage End of Policy Coverage Group Number Member ID Insurance Provider's Telephone Number Policy Aguero's Name Patient's Relationship to Policy Aguero [facility] ([facility]) MEDICARE ADVANTAGE [facility]) Mar 07, 2011 [id number] ANANDA,PABLO ESPINOZA PATIENT Selected Encounter This section includes the information on record at [place] for the Encounter. Date/Time Encounter Type Encounter Description Reason Provider Source Mar 15, 2024 11:00 AM OFFICE O/P EST HI 40 MIN PRIMARY CARE/MEDICINE ICD-10-CM J44.9 Chronic obstructive pulmonary disease, unspecified ANGY CABRERA Encounter Template Text not used by [place] Assessments - Encounter Diagnoses This section includes the primary and secondary diagnoses documented for the Encounter. Date/Time Primary/Secondary Diagnosis Diagnosis Name Provider Source Mar 15, 2024 12:15 PM PRIMARY Chronic obstructive pulmonary disease, unspecified ANGY CABRERA Mar 15, 2024 12:15 PM SECONDARY Conductive hearing loss, unspecified ANGY CABRERA Mar 15, 2024 12:15 PM SECONDARY Essential (primary) hypertension ANGY CABRERA Mar 15, 2024 12:15 PM SECONDARY Pure hypercholesterolemi a, unspecified ANGY CABRERA Mar 15, 2024 12:15 PM SECONDARY Spinal stenosis, lumbar region without neurogenic castro ANGY CABRERAFIELD Vital Signs: All taken on the encounter date This section contains inpatient and outpatient Vital Signs collected on the date of the Encounter. Date/Time Temperature Pulse Blood Pressure Respiratory Rate SP02 Pain Height Weight Body Mass Index Source Mar 15, 2024 11:27 AM 173 27 [place] Mar 15, 2024 11:20 AM 98 68 134/[address] [facility] Social History: Smoking Status (Most current) and Tobacco Use (All prior to encounter date) This section includes the most current, and the historical, smoking and tobacco- related health factors from the [place] facility where the Encounter took place. Current Smoking Status This section includes the most current smoking, or tobacco-related health factor, from the [place] facility where the Encounter took place. Date/Time Current Smoking Status Comment Facil ity Mar 15, 2024 11:00 AM MS-TOBACCO USE FORMER CIGARETTES [place] Tobacco Use History This section includes a history of the smoking, or tobacco-related health factors, that were collected on or before the date of the Encounter. The data comes from the [place] facility where the Encounter took place. Date/Time Smoking Status/Tobacco Use Comment F acility Mar 15, 2024 11:00 AM VA-TOBACCO USE FORMER CIGARETTES [place] Advance Directives: All historical and current Section Date Range: From patient's date of to the date document was created. This section includes ALL of a patient's completed or amended [place] Advance and Rescinded Directives. The entries below indicate that a directive exists for the patient, but an actual copy is not included with this document. The data comes from all [place] facilities. Date Advance Directives Provider Source Mar 15, 2024 ADVANCE DIRECTIVE DIANA CASILLAS Encounter Notes: All associated encounter notes This section contains the clinical notes associated to the Encounter. Date/Time Encounter Note(s) Provider Source Mar 15, 2024 11:28 AM PREVENTIVE MEDICIN E NURSING NOTE: LOCAL TITLE: CLINICAL REMINDERS/NURSING STANDARD TITLE: PREVENTIVE MEDICINE NURSING NOTE DATE OF NOTE: MAR 15, 2024@11:28 ENTRY DATE: MAR 15, 2024@11:28:44 AUTHOR: DAVID WINN EXP COSIGNER: URGENCY: STATUS: COMPLETED COVID-19 Immunization: Vaccine given previously - no written/electronic documentation available The patient was instructed to bring a copy of their COVID-19 vaccine information to their next appointment so that this can be accurately recorded in their [place] medical record. Tdap Immunization: The patient may have been vaccinated in the past but written documentation of vaccination is not available today. Patient instructed to obtain a written record of the prior vaccine and bring it to the next appointment. Herpes Zoster (Shingles) Vaccine: The patient declines to receive the recommended dose of zoster (shingles) vaccine. Immunization: ZOSTER RECOMBINANT Refusal Reason: PATIENT DECISION Patient refuses all immunization(s) in the ZOSTER group Date Documented: 03/15/24 11:29 RHS Screen: RHS Screen Environmental Check Screening was not completed at this time due to: Another adult present RSV Immunization: unable to offer none in clinic available at time of visit. /vicki/ DAVID WINN LPN LICENSED PRACTICAL NURSE Signed: 03/15/2024 11:32 DAVID WINN [place] Mar 15, 2024 11:04 AM PHYSICIAN ASSISTAN T NOTE: LOCAL TITLE: PA NOTE STANDARD TITLE: PHYSICIAN VP PACKAGING NOTE DATE OF NOTE: MAR 15, 2024@11:04 ENTRY DATE: MAR 15, 2024@11:04:55 AUTHOR: ANGY CABRERA EXP COSIGNER: URGENCY: STATUS: COMPLETED PA NOTE Has ADDENDA S - 84 y/o M Allergy: NKAM MEDS: see below CC: new pt initial eval HPI: see Problem List PMH: neg CAD/AMI neg HTN +PVD, LE's B/L (L > R Side) +COPD neg Asthma neg Hepatic Disorders neg Renal Disorders neg CVA/TIA neg Seizures neg Chronic Coagulopathy neg PUD, UGI Bleed neg Anemia, Excess Bleeding, Easy Bruising neg Blood Transfusions neg DM +Hyperthyrpoidism? +BPH any Signif Infectious Diseases? 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 WIA - never TBI - no [place]: [employer] SH: O - coop A&Ox3 NAD W-N/H/D VS: Stable HEENT: Eyes - PERRL, anicteric OU Ears - EAC clear AU TM clear AU Oropharynx - no petechiae, uvula midline NECK: no adeno +bruit, R side; I hear no bruits on L side PUL: Resp full, reg, unlabored; CTA B/L COR: RRR, I Hear no M though he Has Hx AVS ABD: no distention no bruits no tenderness no mass/megaly RECTAL: defer EXT: no LLE or calf tenderness INTEG: NL texture/turgor NAILS: no clubbing no spooning LABS: not done yet A/P - 1) Hypertension 2) C/V Stable - never WA - on Metoprol TART - on ASA, 81 MG/Day - on Lipitor 3) Neuro Stable - never CVA/TIA s/p SDH From a Fall 2023 (resolved) 4) BOTH Carotid and Aortic Valve Stenosis - monitored via Private Cardio 5) PVD w/ B/L LLE - Lasix Abates 6) Hypercholesterolemia - on Lipitor 7) Normoglycemic 8) COPD - on Wixela and Alb Inh's - on DUO-Neb at Home 9) Coagulopathy - No 10) Fall Risk: Yes - Due to Foot Drop - CON: Prosthetics Medical Alert 11) BPH - on Proscar and Flomax 12) Lumbar Spin Stenosis Foot Drop (results in falls) - pending Lumbar Surg MAY 01 13) Hyperthyrpoidism? - on Methimazole Twice Weekly 14) Hearing Loss, B/L - goes to [place] MEDS: Reconciled - has list RTC early MAY 01 - sooner prn Fast Non-Fast Labs Few Days Before Next Visit Suicide Screen: C-SSRS Screening Mcmullen-Suicide Severity Rating Scale (C-SSRS Screener) 1. Over the past month, have you wished you were or wished you could go to sleep and not wake up? No 2. Over the past month, have you had any actual thoughts of killing yourself? No 3. Over the past month, have you been thinking about how you might do this? Response not required due to responses to other questions. 4. Over the past month, have you had these thoughts and had some intention of acting on them? Response not required due to responses to other questions. 5. Over the past month, have you started to work out or worked out the details of how to kill yourself? Response not required due to responses to other questions. 6. If yes, at any time in the past month did you intend to carry out this plan? Response not required due to responses to other questions. 7. In your lifetime, have you ever done anything, started to do anything, or prepared to do anything to end your life (for example, collected pills, obtained a gun, gave away valuables, went to the roof but didn't jump)? No 8. If YES, was this within the past 3 months? Response not required due to responses to other questions. Depression Screening: Perform PHQ-2 A PHQ-2 screen was performed. The score was 2 which is a negative screen for depression. Over the past two weeks, how often have you been bothered by the following problems? 1. Little interest or pleasure in doing things Several days 2. Feeling down, depressed, or hopeless Several days MST Screening: Patient denies experiencing sexual trauma (MST). Homelessness/Food Insecurity Screen: In the past 2 months, have you been living in stable housing that you own, rent, or stay in as part of a household? Yes - Living in stable housing. Are you worried or concerned that in the next 2 months you may NOT have stable housing that you own, rent, or stay in as part of a household? No - Not worried about housing near future The reports the following: Within the past 12 months, you worried whether your food would run out before you got money to buy more. Never true Within the past 12 months, the food you bought just didn't last and you didn't have money to get more. Never true Preferred Language: What is your, or your caregiver's preferred language for healthcare? Preferred Language: Yoruba PTSD Screening: PC-PTSD-5 A PTSD screening test (PC-PTSD-5) was negative (score=0). IN THE PAST MONTH, have you ever had any experience that was so frightening, horrible or traumatic. For example: A serious accident or fire a physical or sexual assault or abuse An earthquake or flood A war Seeing someone be killed or seriously injured Having a loved one through homicide or suicide 1. Have you ever experienced this kind of event? NO 2. Had nightmares about the event(s) or thought about the event(s) when you did not want to? Response not required due to responses to other questions. 3. Tried hard not to think about the event(s) or went out of your way to avoid situations that reminded you of the event(s)? Response not required due to responses to other questions. 4. Been constantly on guard, watchful, or easily startled? Response not required due to responses to other questions. 5. [place] numb or detached from people, activities, or your surroundings? Response not required due to responses to other questions. 6. [place] guilty or unable to stop blaming yourself or others for the event(s) or any problems the event(s) may have caused? Response not required due to responses to other questions. Tobacco Use Screening: The patient is a former cigarette smoker. The patient has never used other types of tobacco. Medication Reconciliation: Outpatient: Has the patient been taking medications as documented in the EMLR? YES: The patient has been taking medications as documented in the EMLR. Essential Medication List for Review used to complete this medication reconciliation. INCLUDED IN THIS LIST: Alphabetical list of active outpatient prescriptions dispensed from this MS (local) and dispensed from another MS or DoD facility (remote) as well as inpatient orders (local, pending and active), local clinic medications, locally documented non-VA medications, and local prescriptions that have or been discontinued in the past 90 days. - All changes in medications, including all non-VA/Herbal/OTC medications were entered into CPRS. Changes: nt - If there were any medications the patient should no longer take, they were discontinued. - The patient/caregiver was instructed to update this list, discard old lists, and take this list to the next appointment, whether with a VA or non-VA provider. Sexual Orientation: The patient thinks of their sexual orientation as: Straight or Heterosexual Falls & Incontinence Screen: Falls Screen: During the past 12 months, did the patient report any falls? 3. At least one fall with injury requiring treatment (in ED or clinic visit). Falls evaluation: (Must be completed by PROVIDER after Positive Falls Screen!) Circumstances of Fall: (I.e. how fall(s) occurred; patient injury sustained; treatment required for injury.) sdh Medications patient is taking: (Review of medications which MAY have contributed to patient fall or mobility disorder.) No medications were identified which contributed to patient fall or mobility disorder. Relevant Chronic Conditions (diseases disorders likely to contribute to fall risk, e.g. DJD both hips with stiffness and pain): There are no chronic diseases or disorders that are likely to contribute to the patient's fall risk. Diagnostic Plans/Therapeutic Recommendations (Check all that apply): Other: Specify: na Actions Taken (to implement above diagnostic plans): Medication Changes: Specific changes: none Falls & Incontinence Screen: Incontinence Screen: During the past 12 months, has the patient has any characteristics of incontinence (ability, voiding, leakage, etc.)? No incontinence. 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 The [place]/caregiver was informed that we will continue to ask this screening question every 5 years. They can contact their provider/healthcare team if they have concerns about exposures and would like to be screened sooner. Printed information was offered and provided if desired. Alcohol Use Screen (AUDIT-C): Alcohol Screen: SCREEN FOR ALCOHOL (AUDIT-C) An alcohol screening test (AUDIT-C) was negative (score=0). 1. How often did you have a drink containing alcohol in the past year? Consider a drink to be a 12 ounce can or bottle of regular beer, 8 ounces of malt liquor, a 5 ounce glass of table wine, or a 1.5 ounce shot of liquor (like scotch, gin, or vodka). Never 2. How many drinks containing alcohol did you have on a typical day when you were drinking in the past year? Response not required due to responses to other questions. 3. How often did you have six or more drinks on one occasion in the past year? Response not required due to responses to other questions. /vicki/ ANGY CABRERA PA-C STAFF PHYSICIAN VP PACKAGING Signed: 03/15/2024 12:16 03/15/2024 ADDENDUM STATUS: COMPLETED new patient seen by mendez i see no permanent team assigned in advance of today's visit patient will have acute needs in early may 01 please assign to permanent pact team no later than first week april patient will also need nursing appt with permanent team for training when his med alert device is delivered to [facility] from [place] /vicki/ ANGY CABRERA PA-C STAFF PHYSICIAN VP PACKAGING Signed: 03/15/2024 12:19 Receipt Acknowledged By: * AWAITING SIGNATURE * JONO LEE 03/15/2024 ADDENDUM STATUS: COMPLETED correction: some baseline wheeze on auscultation lungs /vicki/ ANGY CABRERA PA-C STAFF PHYSICIAN VP PACKAGING Signed: 03/15/2024 12:23 ANGY CABRERA
--- OUTSIDE RECORDS SUMMARY | 2024-03-16 14:40 | XMS_ITS | Encounter Summary ---
Author Name [facility] [place] Organization [facility] [place] Address [address] [place] [id number] Support Name Relationship Address Phone JORJE MALAVE Next of Kin [address], [place] [phone] JORJE MALAVE Emergency Contact [address] [place] [phone] Insurance Providers: All historical and current Section Date Range: From patient's date of to the date document was created. This section includes the names of all active insurance providers for the patient. Insurance Provider Type of Coverage Plan Name Start of Policy Coverage End of Policy Coverage Group Number Member ID Insurance Provider's Telephone Number Policy Aguero's Name Patient's Relationship to Policy Aguero [facility] (WNR) MEDICARE ADVANTAGE [facility] (WNR) Mar 07, 2011 [id number] PABLO MALAVE PATIENT Selected Encounter This section includes the information on record at CT for the Encounter. Date/Time Encounter Type Encounter Description Reason Pro vider Source Feb 13, 2024 12:01 AM Outpatient Encounter ADMIN PAT ACTIVTIES (MASNONCT) IHE Encounter Template Text not used by CT Plan of Treatment: Future Appointments (+ 6 months) and Future Tests (+/- 45 days) The Plan of Treatment section includes future care activities for the patient from all CT treatmentfacilities. This section includes future appointments and future orders which are active, pending or scheduled. Future Appointments This section includes appointments that were scheduled to occur 6 months from the date of the Encounter, up to a maximum of 20 appointments. The data comes from all CT treatment facilities. Appointment Date/Time Appointment Type Appointme nt Facility Name Mar 15, 2024 11:00 AM AMBULATORY - MEDICINE [facility] Advance Directives: All historical and current Section Date Range: From patient's date of to the date document was created. This section includes ALL of a patient's completed or amended CT Advance and Rescinded Directives. The entries below indicate that a directive exists for the patient, but an actual copy is not included with this document. The data comes from all CT facilities. Date Advance Directives Provider Source Mar 15, 2024 ADVANCE DIRECTIVE DIANA CASILLAS Encounter Notes: All associated encounter notes This section contains the clinical notes associated to the Encounter. Date/Time Encounter Note(s) Provider Source Feb 13, 2024 12:01 AM RESCINDED CLINICAL WARNING: LOCAL TITLE: RESCINDED COMMUNICATION AUTHORIZATION STANDARD TITLE: RESCINDED CLINICAL WARNING DATE OF NOTE: FEB 13, 2024@00:01 ENTRY DATE: FEB 17, 2024@08:48:31 AUTHOR: DEV BRIZUELA EXP COSIGNER: URGENCY: STATUS: COMPLETED Family/Caregiver Name: Primary: WINTER ALBERTSNK Secondary: MARILOU ANANDA Tertiary: Authorized Clinic & Topics: All Clinic's & Topics: Primary Care: All Care/Coordination, Scheduling Appointments, Prescriptions, Test Results Mental Health: All Care/Coordination, Scheduling Appointments, Prescriptions, Test Results Specialty Care: All Care/Coordination, Scheduling Appointments, Prescriptions, Test Results [id number] Protected Info: [ ] Drug Abuse [ ] Alcohol Abuse [ ] HIV [ ] Sickle Cell Expiration: Date: [ ] At [X] Through [ ] At end of care // DEV BRIZUELA Signed: 02/17/2024 08:[address] [facility]
--- OUTSIDE RECORDS SUMMARY | 2024-03-16 14:40 | XMS_ITS ---
Author Name [facility] ([facility]) Organization [facility] ([facility] Address [address] [place] [phone] Support Name Relationship Address Phone JORJE MALAVE Next of Kin [address] [place], [place] [phone] JORJE MALAVE Emergency Contact [address] [place] [address] Insurance Providers: All historical and [...] Aguero's Name Patient's Relationship to Policy Aguero [facility] (WNR) MEDICARE ADVANTAGE [facility] (WNR) Mar 07, 2011 [id number] PABLO MALAVE OLGA PATIENT Selected Encounter This section includes the information on record at NH for the Encounter. Date/Time Encounter Type Encounter Description Reason Pro vider Source Mar 14, 2024 04:11 PM Outpatient Encounter TELEPHONE PRIMARY CARE IHE Encounter Template Text not used by NH Plan of Treatment: Future Appointments (+ 6 months) and Future Tests (+/- 45 days) The Plan of Treatment section includes future care activities for the patient from all NH treatmentfacilities. This section includes future appointments and future orders which are active, pending or scheduled. Future Appointments This section includes appointments that were scheduled to occur 6 months from the date of the Encounter, up to a maximum of 20 appointments. The data comes from all NH treatment facilities. Appointment Date/Time Appointment Type Appointme nt Facility Name Mar 15, 2024 11:00 AM AMBULATORY - MEDICINE [facility] Advance Directives: All historical and current Section Date Range: From patient's date of to the date document was created. This section includes ALL of a patient's completed or amended VA Advance and Rescinded Directives. The entries below indicate that a directive exists for the patient, but an actual copy is not included with this document. The data comes from all NH facilities. Date Advance Directives Provider Source Mar 15, 2024 ADVANCE DIRECTIVE DIANA CASILLAS Encounter Notes: All associated encounter notes This section contains the clinical notes associated to the Encounter. Date/Time Encounter Note(s) Provider Source Mar 14, 2024 04:14 PM MEDICATION MGT NOTE: LOCAL TITLE: MEDICATION RECONCILIATION STANDARD TITLE: MEDICATION MGT NOTE DATE OF NOTE: MAR 14, 2024@16:14 ENTRY DATE: MAR 14, 2024@16:14:24 AUTHOR: PAUL GUTIERREZ COSIGNER: URGENCY: STATUS: COMPLETED Vet was given an appt with: Angy Cabrera PA-C on 03/15/24@1100. Vet was called but was unable to reach him by phone. Information in this note was obtained through [employer] === F: Medication reconciliation D: Vet says that he is on the following Medications: 1. Albuterol (Eqv-Ventolin HFA) 90 mcg/inh inhalation aerosol 0 Refills, Maintenance, 02/24/24 1:51:00 PM EST, Partial fill upon patient request if the prescription is for a schedule II opioid drug. Start Date: 02/24/24 Status: Ordered Repeat number: 1 2. Albuterol-ipratropium 3 mg-0.5 mg/3 ml inhalation solution 3 mL, BAND Nebulizer, 4 times a day, PRN Wheezing/Shortness of Breath, 0 Refills, Maintenance, 06/11/22 9:15:00 AM EDT, Inhalation Solution, Partial fill upon patient request if the prescription is for a schedule II opioid drug. Start Date: 06/11/22 Status: Ordered Repeat number: 1 3. Atorvastatin 40 mg oral tablet 1 tablet = 40 mg, By Mouth, Daily at bedtime, 0 Refills, Maintenance, 05/09/15 6:46:19 AM EST, Tablet Start Date: 05/09/15 Status: Ordered Repeat number: 1 4. Budesonide 0.5 mg/2 mL inhalation suspension 0.5 mg, 2, mL, Neb, 2 times a day, PRN, Refills 0, Maintenance, Wheezing/Shortness of Breath, 02/27/21 7:10:00 PM EST Start Date: 02/27/21 Status: Ordered Repeat number: 1 5. Celecoxib 200 mg oral capsule 0 Refills, Maintenance, 01/23/24 11:22:00 AM EST, Partial fill upon patient request if the prescription is for a schedule II opioid drug. Start Date: 01/23/24 Status: Ordered Repeat number: 1 6. Finasteride 5 mg oral tablet 1 tablet = 5 mg, By Mouth, Daily, 0 Refills, Maintenance, 02/27/21 7:08:00 PM EST, Tablet, Partial fill upon patient request if the prescription is for a schedule II opioid drug. Start Date: 02/27/21 Status: Ordered Repeat number: 1 7. Methimazole 10 mg oral tablet 5 mg, 0.5, tablet, By Mouth, on Tuesday & Tuesday' only, Refills 0, Maintenance, 06/11/22 9:14:00 AM EDT, Partial fill upon patient request if the prescription is for a schedule II opioid drug. Start Date: 06/11/22 Status: Ordered Repeat number: 1 8. Metoprolol 25 mg oral tablet 12.5 mg, 0.5, tablet, By Mouth, 2 times a day, # 90 tablet, Refills 3, Tot. Refills 3, Maintenance, 08/08/22 1:45:00 PM EDT, Route to Pharmacy Electronically, [facility]/pharmacy #[id number], 172, cm, 08/08/22 4:51:00 EDT, Height, 84.9, kg, 08/03/22 15:58:00 EDT, Dry Weight Start Date: 08/08/22 Status: Ordered Quantity: 90.0 Unit: tablet Repeat number: 4 9. Omeprazole 20 mg oral enteric coated capsule 1 capsule = 20 mg, By Mouth, Daily, Maintenance, 08/03/22 2:20:00 PM EDT, Partial fill upon patient request if the prescription is for a schedule II opioid drug. Start Date: 08/03/22 Status: Ordered Repeat number: 1 10. Pregabalin 75 mg oral capsule 0 Refills, Maintenance, 02/24/24 1:51:00 PM EST, Partial fill upon patient request if the prescription is for a schedule II opioid drug. Start Date: 02/24/24 Status: Ordered Repeat number: 1 11. Sertraline 100 mg oral tablet 1.5 tablet = 150 mg, By Mouth, Daily, Maintenance, 08/03/22 2:20:00 PM EDT, Partial fill upon patient request if the prescription is for a schedule II opioid drug. Start Date: 08/03/22 Status: Ordered Repeat number: 1 12. Tamsulosin 0.4 mg oral capsule 0.4 mg, 1, capsule, By Mouth, Daily, Refills 0, Maintenance, 03/02/21 12:45:00 PM EST, Partial fill upon patient request if the prescription is for a schedule II opioid drug. Start Date: 03/02/21 Status: Ordered Repeat number: 1 13. Ursodiol: 300 mg = 1 capsule, By Mouth, 2 times a day ===== Vet says that he has the following Medical Hx: 1. COPD 2. CAD in [place] artery 3. Prediabetes 4. Subdural hematoma (Final) - 12/25/23 5. Dizziness (Final) - 12/25/23 6. Fall (Final) - 12/25/23 7. Head injury, closed (Final) - 12/25/23 8. Headache (Final) - 12/25/23 9. HTN 10. GERD 11. BPH ===== Vet says that he has the following community Providers: 1. [facility] Date(s): 02/24/24 - 03/02/24 [facility] [address] [place] [address] Attending Physician: Aniceto Stoll MD 2. [facility] Date(s): 12/25/23 - 12/26/23 [facility] [address] [place] [address]- [place] Encounter Diagnosis Subdural hematoma (Final) - 12/25/23 Dizziness (Final) - 12/25/23 Fall (Final) - 12/25/23 Head injury, closed (Final) - 12/25/23 Headache (Final) - 12/25/23 3. [facility] Date(s): 12/08/22 - 01/07/23 [facility] Gastroenterology [address] [place] [address]- [place] ====== Vet says that he has allergies or adverse effects to the following Medications: 1. Percocet Rickey Mclean: SIGN, VERIFY, PERFORM Event Display: Consult Authored Date: Patient: TIMOTHY MALAVE Age: 83 years Sex: Male : 1940 Associated Diagnoses: None Author: Rickey Mclean 83 y/o male reported fall c/o dizziness on ASA transferred from [facility] with small acute on chronic SDH. No reported focal deficit.. Recommendation Hold ASA STAT head CT for neurologic decline q4 neuro checks Full consult to follow Any question page [id number] Isaac CALLE, Subha R: PERFORM Event Display: Consultation Note Authored Date: [id number] Patient: TIMOTHY MALAVE Age: 83 Years Sex: Male : 1940 Provider Clinical Summary Neurosurgery consultation note Small left acute on chronic subdural hematoma Attending neurosurgeon Dr. Stoll Consult requested by Dr. Peters History of Present Illness Mr. Malave is an 83-year-old man with a past medical history significant for coronary artery disease on Aspirin, HTN, COPD, GERD and BPH who presented to the ED on 12/25/2023 as a transfer from outside hospital status post fall from standing. Per report patient had an initial fall about 6 weeks ago with head strike and no loss of consciousness, since then he has been experiencing headaches. He was recently diagnosed with pneumonia at an urgent care and was started on steroids and antibiotics and reports feeling overall generally weak. CT imaging was significant for a small subacute on chronic left subdural hematoma without significant mass effect or midline shift. Neurosurgery was consulted in light of these findings. On examination this morning Timothy is laying in bed with the head of bed flat. He was educated that with brain bleeds a head of bed is to be elevated, and allowed the bed to be elevated. He states that he does have a headache but denies any nausea or vomiting. He states that he has baseline left lower extremity numbness from the knee down as well as a left foot drop which is due to an old crush injury. He states this weakness is unchanged. He has no other concerns and denies new weakness, chest pain, abdominal pain, paresthesias, saddle anesthesias, urinary retention, urinary or fecal incontinence or seizure-like activity. Radiology Reports Exam Date Time Procedure Performing Provider Status 12/25/23 2:37 AM Chest 2 Views Frontal and Lat Josselin Orr; Marie (Verified) Notes: (Chest 2 Views Frontal and Lat) Reason For Exam: Shortness of Breath, Fever;Other: RESULT: Chest 2 Views Frontal and Lat Chest 2 Views Frontal and Lat Hx of Present Illness: headache, dizziness virtigo worse when moving head to one side over the other, low back pain.; Reason: Other:; Shortness of Breath, Fever; Clinical Question(s): Pneumonia COMPARISON: 11/16/2022 FINDINGS: LINES AND TUBES: None. LUNGS AND PLEURA: Linear atelectasis at the left lung base No pleural effusion. No pneumothorax. HEART, MEDIASTINUM AND JESSIKA: Heart is normal in size. Aortic atherosclerosis BONES AND SOFT TISSUES: No acute abnormality. IMPRESSION: No acute abnormality. WSN: [id number] Ordering Physician: Juanis Reyes Dictated By: Nikki Harris MD Dictated Date/Time: 12/25/23 7:39 am Reviewed By: Nikki Harris MD Signed By: Nikki Harris MD Signed Date/Time: 12/25/23 7:39 am Transcribed By: SARKIS Transcribed Date/Time: 12/25/23 7:38 am Exam Date Time Procedure Performing Provider Status 12/25/23 2:[address] Cervical Spine W/O Contrast Clarence Montes (Verified) Notes: (CT Cervical Spine W/O Contrast) Reason For Exam: Neck trauma, dangerous injury mechanism;Other: RESULT: CT Cervical Spine W/O Contrast CT Head/Brain W/O Contrast, CT Cervical Spine W/O Contrast INDICATION: Hx of Present Illness: headache, dizziness vertigo worse when moving head to one side over the other, low back pain.; Reason: Trauma; Clinical Question(s): Hematoma; known SDH of unknown chronicity; Order Comment: TECHNIQUE: Noncontrast head CT using axial technique was reconstructed in axial and coronal planes. Noncontrast spiral CT through the cervical spine was formatted in 3 planes. Automatic tube modulation was used for the cervical spine and iterative dose reconstruction was used for both the head and cervical spine to optimize scan parameters and image quality.CTDIvol Body: 17.70 mGy, DLP Body: 440 mGy*cm. CTDIvol Head: 39.90 mGy, DLP Head: 671 mGy*cm. (accession [id number]), CTDIvol Body: 17.70 mGy, DLP Body: 440 mGy*cm. CTDIvol Head: 39.90 mGy, DLP Head: 671 mGy*cm. (accession [id number]) COMPARISON: None. FINDINGS: Insulation [place] View Findings, Lines and Tubes: None. BRAIN AND EXTRA-AXIAL SPACES: Hypodense left frontoparietal extra-axial, likely subdural chronic hematoma measuring up to 6 mm (series 205:31). A posterior hyperdense component is suspicious for an acute on chronic component (series 202:85), acute component measures up to 3 mm. No midline shift, or mass effect. Heard-white matter differentiation is well preserved. No acute infarct. Negative insular ribbon sign. Atherosclerotic vascular calcification of the carotid arteries but negative hyperdense vessel sign. Moderate prominence of the ventricles and sulci consistent with parenchymal volume loss. Mild low-density white matter changes. No subarachnoid hemorrhage. CALVARIUM, SKULL BASE, AND SOFT TISSUES: No fractures or suspicious bony lesions. The paranasal sinuses and mastoid air cells are clear. Status-post bilateral lens extraction. The extracranial soft tissues are unremarkable. CERVICAL SPINE: No fracture. No acute osseous abnormalities. Normal alignment. No locked or perched facet. Severe multilevel degenerative disc space narrowing and end plate irregularity. OTHER BONES: No acute abnormality. CERVICAL SOFT TISSUES AND LUNG APICES: Normal soft tissues. Biapical scarring No thyroid nodule large enough to warrant follow up. IMPRESSION: Small left-sided subdural hematoma likely subacute with layering blood products posteriorly. No acute cervical spine abnormalities, there is moderate to advanced degenerative change. Results were conveyed via telephone by Dr. Franki Villasenor on 12/25/2023 to Juanis Reyes SLUBBER TENDER at 2:36 AM. I have personally reviewed the images and I agree with this report. WSN: [id number] Ordering Physician: Juanis Reyes Dictated By: Franki Villasenor MD Dictated Date/Time: 12/25/23 7:14 am Reviewed By: Roshan Levine MD Signed By: Roshan Levine MD Signed Date/Time: 12/25/23 7:19 am Transcribed By: SARKIS Transcribed Date/Time: 12/25/23 2:36 am Exam Date Time Procedure Performing Provider Status 12/25/23 2:[address] Head/Brain W/O Contrast Clarence Montes; Marie (Verified) Notes: (CT Head/Brain W/O Contrast) Reason For Exam: Trauma RESULT: CT Head/Brain W/O Contrast CT Head/Brain W/O Contrast, CT Cervical Spine W/O Contrast INDICATION: Hx of Present Illness: headache, dizziness vertigo worse when moving head to one side over the other, low back pain.; Reason: Trauma; Clinical Question(s): Hematoma; known SDH of unknown chronicity; Order Comment: TECHNIQUE: Noncontrast head CT using axial technique was reconstructed in axial and coronal planes. Noncontrast spiral CT through the cervical spine was formatted in 3 planes. Automatic tube modulation was used for the cervical spine and iterative dose reconstruction was used for both the head and cervical spine to optimize scan parameters and image quality.CTDIvol Body: 17.70 mGy, DLP Body: 440 mGy*cm. CTDIvol Head: 39.90 mGy, DLP Head: 671 mGy*cm. (accession [id number]), CTDIvol Body: 17.70 mGy, DLP Body: 440 mGy*cm. CTDIvol Head: 39.90 mGy, DLP Head: 671 mGy*cm. (accession [id number]) COMPARISON: None. FINDINGS: Insulation [place] View Findings, Lines and Tubes: None. BRAIN AND EXTRA-AXIAL SPACES: Hypodense left frontoparietal extra-axial, likely subdural chronic hematoma measuring up to 6 mm (series 205:31). A posterior hyperdense component is suspicious for an acute on chronic component (series 202:85), acute component measures up to 3 mm. No midline shift, or mass effect. Heard-white matter differentiation is well preserved. No acute infarct. Negative insular ribbon sign. Atherosclerotic vascular calcification of the carotid arteries but negative hyperdense vessel sign. Moderate prominence of the ventricles and sulci consistent with parenchymal volume loss. Mild low-density white matter changes. No subarachnoid hemorrhage. CALVARIUM, SKULL BASE, AND SOFT TISSUES: No fractures or suspicious bony lesions. The paranasal sinuses and mastoid air cells are clear. Status-post bilateral lens extraction. The extracranial soft tissues are unremarkable. CERVICAL SPINE: No fracture. No acute osseous abnormalities. Normal alignment. No locked or perched facet. Severe multilevel degenerative disc space narrowing and end plate irregularity. OTHER BONES: No acute abnormality. CERVICAL SOFT TISSUES AND LUNG APICES: Normal soft tissues. Biapical scarring No thyroid nodule large enough to warrant follow up. IMPRESSION: Small left-sided subdural hematoma likely subacute with layering blood products posteriorly. No acute cervical spine abnormalities, there is moderate to advanced degenerative change. Results were conveyed via telephone by Dr. Franki Villasenor on 12/25/2023 to Juanis Reyes SLUBBER TENDER at 2:36 AM. I have personally reviewed the images and I agree with this report. WSN: [id number] Ordering Physician: Juanis Reyes Dictated By: Franki Villasenor MD Dictated Date/Time: 12/25/23 7:14 am Reviewed By: Roshan Levine MD Signed By: Roshan Levine MD Signed Date/Time: 12/25/23 7:19 am Transcribed By: SARKIS Transcribed Date/Time: 12/25/23 2:36 am /es/ PAUL GUTIERREZ MSN Ed., BSN PEANUT BLANCHER NURSE Signed: 03/14/2024 16:50 Receipt Acknowledged By: 03/15/2024 08:46 /es/ Jailene Patel, MATTI Registered Nurse (RN) 03/15/2024 08:33 /es/ ANGY CABRERA PA-C STAFF PHYSICIAN SAMPLE WRAPPER 03/15/2024 08:42 /es/ DAVID WINN LPN LICENSED PRACTICAL NURSE 03/15/2024 15:24 /es/ ADRIEN SALDAÑA Advanced Deputy Sheriff Building Guard PAUL GUTIERREZ [facility] Mar 14, 2024 04:13 PM LETTERS: LOCAL TITLE: PATIENT LETTER (B) STANDARD TITLE: LETTERS DATE OF NOTE: MAR 14, 2024@16:13 ENTRY DATE: MAR 14, 2024@16:13:25 AUTHOR: PAUL GUTIERREZ EXP COSIGNER: URGENCY: STATUS: [place] [address] [phone] * Date: 03/14/24 Dear Davis: Timothy Thank you for choosing the [facility] ([place]) [facility]. Please be a few minutes early to this appt- about 15 mins. We would like to update your demographic information. To schedule or if you would like more information regarding [place] health care benefits, please call toll free at [phone]), visit the [place] website at [email or web address], or contact your local [place] Medical Center. Welcome to patient aligned care team (Pact Team 3) with (Agny Becker). Prior to meeting you at your new patient appointment we are requesting some of your past medical history so that we may provide you with the exceptional care you deserve. Please note that it is very helpful to have these documents prior to your appointment date as the more information we have the better we will be able to meet your needs: * Last History & Physical * Immunization records * Medication list * Diagnosis list * Most recent labs * Diagnostic screens (Colonoscopy, Abdominal Aortic Aneurysm screen, Mammograms, PAPS, etc.) We have scheduled the following appt with you to see your new PCP: Your appt is scheduled for (@1100)- This appt will be about an hour long appt which will give you and your Provider a chance to get to know each other. We have noticed that you are due to receive the following Immunizations: 1. Zoster vaccine- 2 shot series 2. TD/TDAP immunization 3. Covid 19 vaccine 4. Pneumococcal PCR 15, & 20 You may either bring your records with you to your scheduled appointment, or drop them off ahead of your appointment or you may have them faxed to [phone] ATTN: LUCILA/RY/PACT- 3- Jenny If you have any questions, please do not hesitate to contact the Department of [facility]'s Affairs call center at ext [phone]. Just so that you know if you're feeling sick we have sick call hours at the [facility], and the [facility]- Tue thru Tuesday 08-1530- first come first serve- walk-in basis. [facility] also has sick call hours Mon- Fri- 1100-12N, and 3P-4P- first come first serve basis- no appt needed. You can utilize our sick call system once you have seen the PCP for the first appt. Audiology Phone number- [phone]- Ext [phone] Optometry Phone Number- [phone]- Ext [phone] Mental Health Clinic- [phone] Ext- [phone] Eligibility/Enrollment- [phone]- [phone] Veterans Rep [phone] Ext [phone] BOBBY Van [phone] [facility] Transportation [phone] Ext [phone], or,[phone] [place] [employer] [phone] ( Call within 72hrs of being seen in an acute care setting Sincerely. [facility] [address] [place] [address] Phone: Ext [phone] Upcoming Appointments: 03/15/24@1100- CWM/SO/PACT- 3 Jenny Gutierrez MSN Ed., BSN, RN [facility] [address] [facility] [address] [place] [address] [place] [address] - Ext [phone] [place] [facility] [id number] [place] [address] # [phone] [place] [address] PAUL GUTIERREZ [facility] [place] [facility] Mar 14, 2024 04:12 PM LETTERS: LOCAL TITLE: PATIENT LETTER (B) STANDARD TITLE: LETTERS DATE OF NOTE: MAR 14, 2024@16:12 ENTRY DATE: MAR 14, 2024@16:12:20 AUTHOR: PAUL GUTIERREZ EXP COSIGNER: URGENCY: STATUS: COMPLETED [facility] [address] [facility] [address] * * Date: 03/14/24 Dear : Timothy Thank you for choosing the [facility] ([facility]) [facility]. The Whole Health Program aims to support you in pursuing what matters most to you, and includes services that support your values and overall wellness. This includes the following offerings: * Yoga * Acupuncture * [place] Acupuncture for Acute Pain (offered weekly; drop-in or scheduled) * Individual health coaching * Retail Aide * Biofeedback for Hypertension and Anxiety * Guided Imagery Group * Meditation Group * Cancer Support Group * Stress Management Group ( Stress Less ) The following require no referral from a provider, and can be initiated by you at any time: * Yoga * Meditation * [place] Acupuncture * Cancer Support Group * Individual Health Coaching * Stress Management Group ( Stress Less ) If interested in any of the above offerings, please reach out to the Whole Health Team at ext. [phone]. To schedule consult-required services, or if you would like more information regarding [place] health care benefits, please call toll free at [phone]), visit the [place] website at [email or web address], or contact your local [place] Medical Center. If you have any questions, please do not hesitate to contact the Department of [facility] Affairs call center. Sincerely. Dr. Luli Monahan Whole Health and Integrated Infant Room Teacher [facility] Direct PAUL GUTIERREZ [facility] Mar 14, 2024 04:11 PM PREVENTIVE MEDICINE NURSING NOTE: LOCAL TITLE: CLINICAL REMINDERS/NURSING STANDARD TITLE: PREVENTIVE MEDICINE NURSING NOTE DATE OF NOTE: MAR 14, 2024@16:11 ENTRY DATE: MAR 14, 2024@16:11:07 AUTHOR: PAUL GUTIERREZ EXP COSIGNER: URGENCY: STATUS: COMPLETED Advance Directive Screen MH AD: Patient does not have an Advance Directive completed and is requesting more information. The patient received education about Advance Directives and written notification of his/her rights. Vet was sent an advanced directive and was asked to fill out and bring in for PCP appt Influenza Immunization: The patient has received the seasonal influenza vaccine for the current season at another location. Documented: INFLUENZA, UNSPECIFIED FORMULATION Historical Date Administered: Dec 26, 2023 Outside Location: Outside Healthcare Provider Information Source: FROM OTHER REGISTRY Documented: PNEUMOCOCCAL POLYSACCHARIDE PPV23 Historical Date Administered: Feb 04, 2005 Outside Location: Outside Healthcare Provider Information Source: FROM OTHER REGISTRY Documented: ZOSTER LIVE Historical Date Administered: Feb 03, 2009 Outside Location: Outside Healthcare Provider Information Source: FROM OTHER REGISTRY Comment: Zoster Vaccine Live Documented: PNEUMOCOCCAL CONJUGATE PCV 13 Historical Date Administered: July 16, 2014 Outside Location: Outside Healthcare Provider Information Source: FROM OTHER REGISTRY Documented: TD (ADULT) Historical Date Administered: Dec 28, 2014 Outside Location: Outside Healthcare Provider Information Source: FROM OTHER REGISTRY Comment: tetanus-diphtheria toxoids (Td) Documented: ZOSTER RECOMBINANT Historical Date Administered: Mar 17, 2020 Series: Series 1 Outside Location: Outside Healthcare Provider Information Source: FROM OTHER REGISTRY Comment: zoster vaccine, inactivated /es/ PAUL GUTIERREZ MSN Ed., BSN PEANUT BLANCHER NURSE Signed: 03/14/2024 16:54 PAUL GUTIERREZ [facility]
== END 2024-03-16 15:00 | disposition home or self-care (01) ==
PROVIDERS: PCP Physician Assistant Medical; Visit Provider Hospitalist
DX: J45.51 Severe persistent asthma with (acute) exacerbation (principal); J47.0 Bronchiectasis with acute lower respiratory infection; R91.8 Other nonspecific abnormal finding of lung field; J40 Bronchitis, not specified as acute or chronic; D80.1 Nonfamilial hypogammaglobulinemia; J44.9 Chronic obstructive pulmonary disease, unspecified
CPT/HCPCS: 99214

== ENCOUNTER 2024-03-16 15:06 | Outpatient (REF) | payer MEDICARE, SELFPAY ==
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
== END 2024-03-16 15:07 | disposition home or self-care (01) ==
LOC: HO.LNP 15:06
PROVIDERS: Visit Provider Hospitalist
DX: J44.9 Chronic obstructive pulmonary disease, unspecified (principal); J45.51 Severe persistent asthma with (acute) exacerbation; J47.0 Bronchiectasis with acute lower respiratory infection; J40 Bronchitis, not specified as acute or chronic; R91.8 Other nonspecific abnormal finding of lung field; D80.1 Nonfamilial hypogammaglobulinemia; R84.5 Abnormal microbiological findings in specimens from respiratory organs and thorax
CPT/HCPCS: 87070; 87077; 87186; 87205; 99212

== ENCOUNTER 2024-03-30 10:00 | Outpatient (REF) | payer MEDICARE, SELFPAY ==
--- OUTSIDE RECORDS SUMMARY | 2024-03-30 15:56 | XMS_ITS | Continuity of Care Document ---
Author Organization [facility] [address], [address] [place] [address]- Care Team Providers Care Deputy K 9 Name Role Phone Anthony Leslie Primary Care Physician Encounter [facility] Date(s): 01/30/24 - 03/16/[address] [place], [place] [address] Attending Physician: Not on Staff, Attending MD Referring Physician: Not on Staff, Referring MD Encounter Type: Pre Office Visit Allergies, Adverse Reactions, Alerts Substance Criticality Severity Reaction Reaction Severity Status Percocet 5/325 Activ e Immunizations Given and Recorded Vaccine Date Status Refusal Reason influenza virus vaccine, inactivated 1 12/26/23 Gi ana influenza virus vaccine, inactivated 01/19/22 Александр rded influenza virus vaccine, inactivated 12/10/20 Александр rded influenza virus vaccine, inactivated 01/10/19 Александр rded influenza virus vaccine, inactivated 12/18/17 Александр rded influenza virus vaccine, inactivated 02/24/16 Александр rded influenza virus vaccine, inactivated 12/28/14 Александр rded influenza virus vaccine, inactivated 01/07/14 Александр rded influenza virus vaccine, inactivated 01/02/13 Александр rded influenza virus vaccine, inactivated 12/31/11 Александр rded influenza virus vaccine, inactivated 01/10/11 Give n influenza virus vaccine, inactivated 12/26/09 Александр rded influenza virus vaccine, inactivated 01/29/08 Александр rded influenza virus vaccine, inactivated 01/24/07 Александр rded influenza virus vaccine, inactivated 01/17/06 Александр rded SARS-CoV-2 (COVID-19) mRNA BNT-162b2 vac 01/06/21 Recorded SARS-CoV-2 (COVID-19) mRNA BNT-162b2 vac 05/05/20 Recorded SARS-CoV-2 (COVID-19) mRNA BNT-162b2 vac 04/14/20 Recorded zoster vaccine, inactivated 03/17/20 Recorded tetanus-diphtheria toxoids (Td) 12/28/14 Recorded tetanus-diphtheria toxoids (Td) 12/23/03 Recorded pneumococcal 13-valent vaccine 07/16/14 Recorded Zoster Vaccine Live 02/03/09 Recorded pneumococcal 23-valent vaccine 02/04/05 Recorded 1Early/Late Reason: Early/Late Reason: Med Not Available Medications Albuterol (Eqv-Ventolin HFA) 90 mcg/inh inhalation aerosol 0 Refills, Maintenance, 02/24/24 1:51:00 PM EST, Partial fill upon patient request if the prescription is for a schedule II opioid drug. Start Date: 02/24/24 Status: Ordered Repeat number: 1 albuterol-ipratropium 3 mg-0.5 mg/3 ml inhalation solution 3 mL, BAND Nebulizer, 4 times a day, PRN Wheezing/Shortness of Breath, 0 Refills, Maintenance, 06/11/22 9:15:00 AM EDT, Inhalation Solution, Partial fill upon patient request if the prescription is fora schedule II opioid drug. Start Date: 06/11/22 Status: Ordered Repeat number: 1 atorvastatin 40 mg oral tablet 1 tablet = 40 mg, By Mouth, Daily at bedtime, 0 Refills, Maintenance, 05/09/15 6:46:19 AM EST, Tablet Start Date: 05/09/15 Status: Ordered Repeat number: 1 budesonide 0.5 mg/2 mL inhalation suspension 0.5 mg, 2, mL, Neb, 2 times a day, PRN, Refills 0, Maintenance, Wheezing/Shortness of Breath, 02/27/21 7:10:00 PM EST Start Date: 02/27/21 Status: Ordered Repeat number: 1 celecoxib 200 mg oral capsule 0 Refills, Maintenance, 01/23/24 11:22:00 AM EST, Partial fill upon patient request if the prescription is for a schedule II opioid drug. Start Date: 01/23/24 Status: Ordered Repeat number: 1 finasteride 5 mg oral tablet 1 tablet = 5 mg, By Mouth, Daily, 0 Refills, Maintenance, 02/27/21 7:08:00 PM EST, Tablet, Partial fill upon patient request if the prescription is for a schedule II opioid drug. Start Date: 02/27/21 Status: Ordered Repeat number: 1 methimazole 10 mg oral tablet 5 mg, 0.5, tablet, By Mouth, on Tuesday & Tuesday's only, Refills 0, Maintenance, 06/11/22 9:14:00 AM EDT, Partial fill upon patient request if the prescription is for a schedule II opioid drug. Start Date: 06/11/22 Status: Ordered Repeat number: 1 metoprolol 25 mg oral tablet 12.5 mg, 0.5, tablet, By Mouth, 2 times a day, # 90 tablet, Refills 3, Tot. Refills 3, Maintenance,08/08/22 1:45:00 PM EDT, Route to Pharmacy Electronically, [facility]/pharmacy #[id number], 172, cm, 08/08/22 4:51:00 EDT, Height, 84.9, kg, 08/03/22 15:58:00 EDT, Dry Weight Start Date: 08/08/22 Status: Ordered Quantity: 90.0 Unit: tablet Repeat number: 4 omeprazole 20 mg oral enteric coated capsule 1 capsule = 20 mg, By Mouth, Daily, Maintenance, 08/03/22 2:20:00 PM EDT, Partial fill upon patient request if the prescription is for a schedule II opioid drug. Start Date: 08/03/22 Status: Ordered Repeat number: 1 pregabalin 75 mg oral capsule 0 Refills, Maintenance, 02/24/24 1:51:00 PM EST, Partial fill upon patient request if the prescription is for a schedule II opioid drug. Start Date: 02/24/24 Status: Ordered Repeat number: 1 sertraline 100 mg oral tablet 1.5 tablet = 150 mg, By Mouth, Daily, Maintenance, 08/03/22 2:20:00 PM EDT, Partial fill upon patient request if the prescription is for a schedule II opioid drug. Start Date: 08/03/22 Status: Ordered Repeat number: 1 tamsulosin 0.4 mg oral capsule 0.4 mg, 1, capsule, By Mouth, Daily, Refills 0, Maintenance, 03/02/21 12:45:00 PM EST, Partial fillupon patient request if the prescription is for a schedule II opioid drug. Start Date: 03/02/21 Status: Ordered Repeat number: 1 Problem List Condition Confirmation Course Effective Dates Status Health St atus Informant COPD without exacerbation Confirmed Active CAD in [place] artery Confirmed Active History of prediabetes Confirmed Active Social History Social History Type Response Smoking Status Former smoker, quit more than 30 days ago entered on: 12/07/22 Sex Sex Representation Male (finding) Patient Care team information Care Team Personnel Name: Juanis Alexis RN Position: [facility] RN Supv Member Role: Primary Care Nurse Name: Isabela Galvez RN Position: [facility] SN RN Member Role: Primary Care Nurse Name: Christina Napier RN Position: [facility] ED RN W/OE and Tasks Member Role: Primary Care Nurse Name: Wesly Guerrero RN Position: [facility] RN Member Role: Primary Care Nurse Name: Camila Justin RN Position: [facility] SN RN Member Role: Primary Care Nurse Name: Nolberto Maynard RN Position: [facility] RN Member Role: Primary Care Nurse Name: Mili Sandoval RN Position: [facility] SN RN Member Role: Primary Care Nurse Name: Chepe Judd RN Position: [facility] Maia RN Member Role: Primary Care Nurse Name: Shayy Willoughby RN Position: [facility] RN Member Role: Primary Care Nurse Name: Katina Vega RN Position: [facility] AMB Nurse Member Role: Primary Care Nurse Name: Anthony Leslie Position: Reference Physician Member Role: PCP Address: [address] [place] [address] [place], [place] [address] Telecom: Care Team Related Persons Name: JESUSITA MALAVE Name: WINTER MALAVE Insurance Providers Guarantor name: SOPHIA ANANDA Health Plan Information #: 1 Payer: [employer] Member Number: [id number] Policy Number: NA Group Number: [id number] Health Plan Information #: 2 Payer: [employer] Member Number: [id number] Policy Number: NA Group Number: [id number]
--- OUTSIDE RECORDS SUMMARY | 2024-03-30 15:56 | XMS_ITS | Encounter Summary ---
Author Organization [facility] Address [address] [place] [address] Care Team Providers Care Arts Administrator Name Role Phone Anthony Sr Primary Care Provider [phone] Reason for Visit * Reason Onset Date Comments faxed order 03/21/2024 [facility] alth order #[id number] Encounter Details Date Type Department Care Team (Late st Contact Info) Description 03/21/2024 Telephone Adult Medicine [address] [phone] [place] faxed order ([facility] order #[id number]) Social History Tobacco Use Types Packs/Day Years Used Date Smoking Tobacco: Former Cigarettes Q uit: 03/07/1997 Smokeless Tobacco: Never Alcohol Use Standard Drinks/Week Comments Yes 0 (1 standard drink = 0.6 oz pur e alcohol) Housing Instability Answer Date Recorde d Are you worried that in the next 2 months you may not have stable housing? No 03/19/2024 Food Access & Nutrition Answer Date Rec orded Do you have access to a vari ety of food including fruits and vegetables? Yes 03/19/2024 Access to Healthcare Answer Date Record ed Within the last 3 months, ho w many times did you visit the emergency department for your medical care? 0 03/19/2024 Health Literacy Answer Date Recorded How often do you need to hav e someone help you when you read instructions, pamphlets, or other written material from your doctor or pharmacy? Never 03/19/2024 Caregiver: How often do you need to have someone help you when you read instructions, pamphlets, or other written material from your doctor or pharmacy? Not on file 03/19/2024 Financial Risk Answer Date Recorded How hard is it for you to pa y for the very basics like food, housing, medical care, and air conditioning / heating? Not very hard 03/19/2024 Transportation Answer Date Recorded Has the lack of transportati on kept you from meetings, work, or from getting things needed for daily living? No Has the lack of transportati on kept you from medical appointments or from getting medications? No 03/19/2024 Social Isolation Answer Date Recorded How often do you feel lonely or isolated from th ose around you? Never 03/19/2024 Food Risk Answer Date Recorded Within the past 12 months we worried whether our food would run out before we got money to buy more. Never true 03/19/2024 Within the past 12 months th e food we bought just didn't last and we didn't have money to get more. Never true 03/19/2024 Dependent Care Answer Date Recorded Do you need help finding or paying for care for your loved ones. For example, exceptional children teacher assistant or elderly care for an older adult? No 03/19/2024 Education Answer Date Recorded Do you think completing more education or training, like finishing a GED, going to college, or learning a trade, would be helpful for you? No 03/19/2024 Employment and Income Answer Date Recor ded During the last four weeks, have you been actively looking for work? No 03/19/2024 Living Situation Answer Date Recorded What is your living situation? 0 03/19/2024 Sex and Gender Information Value Date Recorded Sex Assigned at Not on file Gender Identity Not on file Sexual Orientation Not on file Job Start Date Occupation Industry Not on file Not on file Not on file documented as of this encounter Progress Notes * Nikki Ellison MA - 03/21/2024 8:17 AM EST Received orders from [facility] order #[id number]. Please sign and fax to [phone] documented in this encounter Plan of Treatment Upcoming Encounters Date Type Department Care Team (Late st Contact Info) Description 04/18/2024 7:30 AM EST Hospital Encounter [facility] OR [address] [place] [phone] Lobo Starr MD [address] [address] 04/18/2024 7:30 AM EST - 04/18/2024 10:30 AM EST Surgery [facility] OR [address] [place] [phone] Lobo Starr MD [address] [address] L2-3 LUMBAR LAMINECTOMY & DECOMPRESSION [94545 (CPT??) +1 more] 05/01/2024 3:30 PM EST Office Visit Adult Medicine [address] [phone] Anthony Sr, PA [address] [place] [phone] 05/25/2024 2:00 PM EDT Consult Vascular Surgery - [place] [address] [phone] Willam Dumont MD [address] [address] 06/12/2024 10:45 AM EDT Office Visit Adult Medicine [address] [phone] Anthony Sr, PA [address] [place] [address] Scheduled Procedures Name Priority Associated Diagnoses Date/Ti me DECOMPRESSION LUMBAR Spinal stenosis, lumbar region with neurogenic claudication 04/18/2024 7:30 AM EST documented as of this encounter Visit Diagnoses Not on filedocumented in this encounter Additional Health Concerns Assessment Noted Time PHQ-9 Depression Total Score: 1 03/19/19 25 2:02 PM EST A fall risk assessment has been complete d for the patient 03/19/2024 2:02 PM EST documented as of this encounter Care Teams Arts Administrator Relationship Specialty Start Date End Date Anthony Sr PA [address] [place] [address] PCP - General Internal Medicine 03/06/24 documented as of this encounter
--- OUTSIDE RECORDS SUMMARY | 2024-03-30 15:56 | XMS_ITS | Encounter Summary ---
Author Organization [facility] Address [address] [place] [address] Care Team Providers Care Manufacturing Support Engineer Name Role Phone Anthony Sr Primary Care Provider [phone] Reason for Visit * Reason Onset Date Comments faxed order 03/16/2024 [facility] order #[id number] Encounter Details Date Type Department Care Team (Late st Contact Info) Description 03/16/2024 Telephone Adult Medicine [address] [phone] [place], [place] faxed order ([facility] order #[id number]) Social History Tobacco Use Types Packs/Day Years [...] Record ed Within the last 3 months, estefania w many times did you visit the [...] care for your loved ones. For example, registered nurse maternal child or elderly care for an older adult? [...] as of this encounter Progress Notes * Katie Todd MA - 03/26/2024 11:52 AM EST .ORDER() FAXED BACK ON 03/21/24 W/ CONFIRMATION OF TRANSMISSION * Nikki MERCY Ellison - 03/16/2024 3:23 PM EST Received orders from [facility] order #[id number]. Please sign and fax to [phone] documented in this encounter Plan of Treatment Upcoming Encounters Date Type Department Care Team (Late st Contact Info) Description 04/18/2024 7:30 AM EST Hospital Encounter [facility] OR [address] [place] [address] Lobo Starr MD [address] [address] 04/18/2024 7:30 AM EST - 04/18/2024 10:30 AM EST Surgery [facility] OR [address] [place] [phone] Lobo Starr MD [address] [address] L2-3 LUMBAR LAMINECTOMY & DECOMPRESSION [[id number] (CPT??) +1 more] 05/01/2024 3:30 PM EST Office Visit Adult Medicine [address] [phone] Anthony Sr PA [address] [place] [address] 05/25/2024 2:00 PM EDT Consult Vascular Surgery - [place] [address] [phone] Willam Dumont MD [address] [address] 06/12/2024 10:45 AM EDT Office Visit Adult Medicine [address] [phone] Anthony Sr PA [address] [place] [address] Scheduled Procedures Name Priority Associated Diagnoses Date/Ti me DECOMPRESSION LUMBAR Spinal stenosis, lumbar region with neurogenic claudication 04/18/2024 7:30 AM EST documented as of this encounter Visit Diagnoses Not on filedocumented in this encounter Care Teams Manufacturing Support Engineer Relationship Specialty Start Date End Date Anthony Sr PA [address] [place] [address] PCP - General Internal Medicine 03/06/24 documented as of this encounter
--- OUTSIDE RECORDS SUMMARY | 2024-03-30 15:56 | XMS_ITS | Encounter Summary ---
Author Organization [facility] Address [address] [place] [address] Care Team Providers Care Gis Consultant Name Role Phone Anthony Sr Primary Care Provider [phone] Reason for Visit * Reason Onset Date Comments Direct Casting Operator 03/28/2024 PA LOOP - [id number] (Ok to Book) 03/28/2024 Encounter Details Date Type Department Care Team (Late st Contact Info) Description 03/28/2024 Telephone [facility] - [facility] [address] [facility] [address] [place] [phone] Ricardo Harmon MD [address] [place], [place] [phone] Direct Casting Operator (PA); LOOP - [id number] (Ok to Book) Social History Tobacco Use Types Packs/Day Years [...] care for your loved ones. For example, child care counselor or elderly care for an older adult? [...] as of this encounter Progress Notes * Naz Hartman RN - 03/28/2024 1:10 PM EST Pt will be enrolled for home delivery of 30 day Loop Monitor per [facility] Hale. * Luci Brambila - 03/28/2024 11:14 AM EST Prior Auth Status: NO Auth Req per [facility] Insurance Referral: N/A CPT: 78925 - LOOP DX: I63.9, I63.39 Duration: 30 Days Normal: Ja SAUCEDA to BOOK * Srinivas Melendrez [place] - 03/28/2024 10:31 AM EST It was ordered by an outisder, all outsiders are going to be a Loop. Read by unless theyhave a manager of production with us. Patient is a patient so will be reading this one. * Luci Brambila - 03/28/2024 10:26 AM EST Good Morning, Can you please confirm the test being ordered. Thank You. documented in this encounter Plan of Treatment Upcoming Encounters Date Type Department Care Team (Late st Contact Info) Description 04/18/2024 7:30 AM EST Hospital Encounter [facility] [place] [address] [place] [phone] Lobo Starr MD [address] [place] [address] [address] 04/18/2024 7:30 AM EST - 04/18/2024 10:30 AM EST Surgery [facility] [place] [address] [place] [phone] Lobo Starr MD [address] [place] [address] [address] L2-3 LUMBAR LAMINECTOMY & DECOMPRESSION [83443 (CPT??) +1 more] 05/01/2024 3:30 PM EST Office Visit Adult [address] [phone] Anthony Sr PA [address] [place], [place] 05/25/2024 2:00 PM EDT Consult Vascular Surgery - [place] [address] [place] [address] Willam Dumont MD [address] [place] [address] 06/12/2024 10:45 AM EDT Office Visit [address] [phone] Anthony Sr PA [address] [place], [place] Scheduled Procedures Name Priority Associated Diagnoses Date/Ti me DECOMPRESSION LUMBAR Spinal stenosis, lumbar region with neurogenic claudication 04/18/2024 7:30 AM EST documented as of this encounter Visit Diagnoses Not on filedocumented in this encounter Additional Health Concerns Assessment Noted Time PHQ-9 Depression Total Score: 1 03/19/19 2:02 PM EST A fall risk assessment has been complete d for the patient 03/19/2024 2:02 PM EST documented as of this encounter Care Teams Gis Consultant Relationship Specialty Start Date End Date Anthony Sr, PA [address] [place] [address] PCP - General Internal Medicine 03/06/24 documented as of this encounter
--- OUTSIDE RECORDS SUMMARY | 2024-03-30 15:56 | XMS_ITS | Encounter Summary ---
Author Organization [facility] Address [address] [place] [address] Care Team Providers Care Relocation Coordinator Name Role Phone Anthony Sr Primary Care Provider [phone] Reason for Visit * Reason Onset Date Comments Headache 03/05/2024 Encounter Details Date Type Department Care Team (Late st Contact Info) Description 03/05/2024 Nurse Triage Adult Medicine [facility] [address] [place], [place] [phone] Anthony Sr PA [address] [place] [address] Headache Social History Tobacco Use Types Packs/Day Years Used Date Smoking Tobacco: Former Cigarettes Q uit: 03/07/1997 Smokeless Tobacco: Never Alcohol Use Standard Drinks/Week Comments Yes 0 (1 standard drink = 0.6 oz pur e alcohol) Sex and Gender Information Value Date Recorded Sex Assigned at Not on file Gender Identity Not on file Sexual Orientation Not on file Job Start Date Occupation Industry Not on file Not on file Not on file documented as of this encounter Progress Notes * Beata Hernandez RN - 03/05/2024 10:02 AM EST Spoke with the Left side of the head hurts. Sharp pain around the ear, No changes in vision Does get severe HAs and feels like one Takes tylenol with some relief Scheduled eval for 03/06 at 2:15 Reason for Disposition [1] MODERATE headache (e.g., interferes with normal activities) AND [2] present > 24 hours AND [3] unexplained (Exceptions: Pain medicines not tried, typical migraine, or headache part of viral illness.) Answer Assessment - Initial Assessment Questions 1. LOCATION: Where does it hurt? Middle of head to the left side near the ear 2. ONSET: When did the headache start? (e.g., minutes, hours, days) yesterday 3. PATTERN: Does the pain come and go, or has it been constant since it started? constant 4. SEVERITY: How bad is the pain? and What does it keep you from doing? (e.g., Scale 1-10; mild, moderate, or severe) - MILD (1-3): Doesn't interfere with normal activities. - MODERATE (4-7): Interferes with normal activities or awakens from sleep. - SEVERE (8-10): Excruciating pain, unable to do any normal activities. - WORST HEADACHE (10+): 'Worst headache' of life. moderate 5. RECURRENT SYMPTOM: Have you ever had headaches before? If Yes, ask: When was the last time? and What happened that time? yes 6. CAUSE: What do you think is causing the headache? unknown 7. MIGRAINE: Have you been diagnosed with migraine headaches? If Yes, ask: Is this headache similar? Never diagnosed 8. HEAD INJURY: Has there been any recent injury to the head? Not recent, did fall and hit head in Dec 2023 9. OTHER SYMPTOMS: Do you have any other symptoms? (e.g., fever, stiff neck, eye pain, sore throat, cold symptoms) Sinus congestion runny nose 10. : Is there any chance you are ? When was your last menstrual period? no Protocols used: [id number] * Woody Maxwell - 03/05/2024 9:34 AM EST Symptoms patient is presenting: Pt c/o sharp pain lt side of head and persistent headaches. Pt states no recent head trauma but did suffer a fall Dec 2023 For ALL patients calling to schedule any appointment (routine, sick visit, follow up, consult, etc.) in the outpatient setting please ask the following questions: Do you have fever of higher than 101, sore throat with difficulty swallowing or severe shortness ofbreath? NO If YES to any of these above symptoms, send a message to triage and do not book. Red dot. If no, an audio or video visit should be booked. Have you had close contact with someone with Coronavirus in the last 14 days? NO Have you traveled abroad? NO Have you traveled recently to another state outside of [place], [place], [place], [place], [place], [place], [place]? NO o If yes, did you quarantine for 14 days or have a negative covid test? NO If yes to any of the above, patient is not to be scheduled in office until after 14 day quarantine or negative covid test. If pain or injury related was it due to an accident at work or from a motor vehicle accident? NO If yes, gather 3rd constitution party insurance information Date of accident/Injury: n/a How long has patient had these symptoms?: 2 wks PCP: LUC Arechiga Payor: documented in this encounter Plan of Treatment Upcoming Encounters Date Type Department Care Team (Late st Contact Info) Description 04/18/2024 7:30 AM EST Hospital Encounter [address] [phone] Lobo Starr MD [address] [address] 04/18/2024 7:30 AM EST - 04/18/2024 10:30 AM EST Surgery [address] [phone] Lobo Starr MD [address] [address] L2-3 LUMBAR LAMINECTOMY & DECOMPRESSION [70339 (CPT??) +1 more] 05/01/2024 3:30 PM EST Office Visit [facility] - [address] [phone] Anthony Sr PA [address] [place], [place] 05/25/2024 2:00 PM EDT Consult Vascular Surgery - [place] [address] [place] [phone] Willam Dumont MD [address] [place] [address] 06/12/2024 10:45 AM EDT Office Visit Adult Medicine [facility] - [address] [phone] Anthony Sr PA [address] [place], [place] Scheduled Procedures Name Priority Associated Diagnoses Date/Ti me DECOMPRESSION LUMBAR Spinal stenosis, lumbar region with neurogenic claudication 04/18/2024 7:30 AM EST documented as of this encounter Visit Diagnoses Not on filedocumented in this encounter Care Teams Relocation Coordinator Relationship Specialty Start Date End Date Anthony Sr PA PCP - General Internal Medicine 02/26/20 03/05/24 documented as of this encounter
--- OUTSIDE RECORDS SUMMARY | 2024-03-30 15:56 | XMS_ITS | Continuity of Care Document ---
Author Organization [facility] [address], [address] [place] [address]- Care Team Providers Care Stumper Feller Name Role Phone Anthony Leslie Primary Care Physician [place] [facility] [place](s[place] 02/24/24 - 03/02/[address] [place], [place] [address] Attending Physician: Aniceto Stoll MD Encounter Type: Office Visit Allergies, Adverse Reactions, Alerts Substance [...] 1:45:00 PM EDT, Route to Pharmacy Electronically, [facility]/pharmacy #[id number], 172, cm, 08/08/22 4:51:00 EDT, [...] COPD without exacerbation Confirmed Active CAD in [place] artery Confirmed Active History of prediabetes Confirmed Active Vital Signs Most recent to oldest [Reference Range]: 1 Height 170 cm (02/24/24 1:51 PM) Weight 80 kg (02/24/24 1:51 PM) Body Mass Index [18.5-24.99 kg/m2] 27.68 kg/m2 *H* (02/24/24 1:51 PM) Social History Social History Type Response Smoking Status Former smoker, quit more than 30 days ago entered on: 12/07/22 Sex Sex Representation Male (finding) Patient Care team information Care Team Personnel Name: Juanis Alexis RN Position: [facility] RN Supv Member Role: Primary Care Nurse Name: Isabela Galvez RN Position: [facility] SN RN Member Role: Primary Care Nurse Name: Christina Napier RN Position: [facility] ED RN W/OE and Tasks Member Role: Primary Care Nurse Name: Wesly Guerrero RN Position: [facility] RN Member Role: Primary Care Nurse Name: Camila Justin RN Position: [facility] SN RN Member Role: Primary Care Nurse Name: Nolberto Maynard RN Position: [facility] RN Member Role: Primary Care Nurse Name: Mili Sandoval RN Position: [facility] SN RN Member Role: Primary Care Nurse Name: Chepe Judd RN Position: [facility] Oncrishabh RN Member Role: Primary Care Nurse Name: Shayy Willoughby RN Position: [facility] RN Member Role: Primary Care Nurse Name: Katina Vega RN Position: [facility] AMB Nurse Member Role: Primary Care Nurse Name: Anthony Leslie Position: Reference Physician Member Role: PCP Address: [address] [place] [address] [place], [place] [address] Telecom: Care Team Related Persons Name: JESUSITA MALAVE Name: WINTER MALAVE Insurance Providers Guarantor name: SOPHIA MALAVE [facility] Information #: 1 Payer: [facility] Member Number: [id number] Policy Number: NA Group Number: [id number] Health Plan Information #: 2 Payer: [facility] Member Number: [id number] Policy Number: NA Group Number: [id number]
--- OUTSIDE RECORDS SUMMARY | 2024-03-30 15:56 | XMS_ITS | Encounter Summary ---
Author Organization [facility] Address [address] [place] [address] Care Team Providers Care American History Teacher Name Role Phone Anthony Sr Primary Care Provider [phone] Reason for Visit * Reason Onset Date Comments VNA Order 02/03/2024 [facility] #[id number] Encounter Details Date Type Department Care Team (Late st Contact Info) Description 02/03/[address] [facility] [address] [place] [phone] Anthony Sr PA [address] [place], [place] [phone] VNA Order ([facility]/Order #[id number]) Social History Tobacco Use Types Packs/Day Years [...] as of this encounter Progress Notes * Rand Smith - 02/03/2024 12:36 PM EST Received faxed order [id number] from [facility] and placed in provider bin. Please review, sign, and fax to [phone]. documented in this encounter Plan of Treatment Upcoming Encounters Date Type Department Care Team (Late st Contact Info) Description 04/18/2024 7:30 AM EST Hospital Encounter [facility] [place] [address] [place] [phone] Lobo Starr MD [address] [address] 04/18/2024 7:30 AM EST - 04/18/2024 10:30 AM EST Surgery [facility] [place] [address] [place] [phone] Lobo Starr MD [address] [address] L2-3 LUMBAR LAMINECTOMY & DECOMPRESSION [[id number] (CPT??) +1 more] 05/01/2024 3:30 PM EST Office Visit Adult Medicine [address] [phone] Anthony Sr, PA [address] [place] [address] 05/25/2024 2:00 PM EDT Consult Vascular Surgery - [address] [place] [phone] Willam Dumont MD [address] [address] 06/12/2024 10:45 AM EDT Office Visit Adult Medicine [address] [phone] Anthony Sr, PA [address] [place] [address] Scheduled Procedures Name Priority Associated Diagnoses Date/Ti me DECOMPRESSION LUMBAR Spinal stenosis, lumbar region with neurogenic claudication 04/18/2024 7:30 AM EST documented as of this encounter Visit Diagnoses Not on filedocumented in this encounter Care Teams American History Teacher Relationship Specialty Start Date End Date Anthony Sr PA PCP - General Internal Medicine 02/26/20 03/05/24 documented as of this encounter
--- OUTSIDE RECORDS SUMMARY | 2024-03-30 15:56 | XMS_ITS | Continuity of Care Document ---
Author Organization [facility] Address [address] [place] [address]- Care Team Providers Care Radiator Mechanic Name Role Phone Anthony Leslie Primary Care Physician Encounter [facility] [id number] Date(s): 03/28/24 - 03/28/[address] [address]- Attending Physician: Sergio Laws MD Encounter Type: One Time OP Allergies, Adverse Reactions, Alerts Substance Criticality Severity Reaction Reaction Severity Status Percocet Activ e Immunizations Given and Recorded Vaccine [...] 1:45:00 PM EDT, Route to Pharmacy Electronically, [facility]/pharmacy #[id number], 172, cm, 08/08/22 4:51:00 EDT, Height, [...] COPD without exacerbation Confirmed Active CAD in [place] artery Confirmed Active History of prediabetes Confirmed Active Social History Social History Type Response Smoking Status Former smoker, quit more than 30 days ago entered on: 12/07/22 Sex Sex Representation Male (finding) Patient Care team information Care Team Personnel Name: Juanis Alexis RN Position: [facility] RN Supv Member Role: Primary Care Nurse Name: Isabela Galvez RN Position: [facility] SN RN Member Role: Primary Care Nurse Name: Christina Napier RN Position: [facility] ED RN W/OE and Tasks Member Role: Primary Care Nurse Name: Wesly Guerrero RN Position: [facility] RN Member Role: Primary Care Nurse Name: Camila Justin RN Position: [facility] SN RN Member Role: Primary Care Nurse Name: Nolberto Maynard RN Position: [facility] RN Member Role: Primary Care Nurse Name: Mili Sandoval RN Position: [facility] SN RN Member Role: Primary Care Nurse Name: Chepe Judd RN Position: [facility] Oncrishabh RN Member Role: Primary Care Nurse Name: Shayy Willoughby RN Position: [facility] RN Member Role: Primary Care Nurse Name: Katina Vega RN Position: [facility] AMB Nurse Member Role: Primary Care Nurse Name: Anthony Leslie Position: Reference Physician Member Role: PCP Address: [address] [place] [address] Medical [place], [place] [address] Telecom: Care Team Related Persons Name: JESUSITA MALAVE Name: WINTER MALAVE Insurance Providers Guarantor name: SOPHIA MALAVE Health Plan Information #: 1 Payer: [facility] [employer] [facility] Member Number: NA Policy Number: NA Group Number: NA
--- OUTSIDE RECORDS SUMMARY | 2024-03-30 15:56 | XMS_ITS | Encounter Summary ---
Author Organization [facility] Address [address] [place] [address] Care Team Providers Care Dispatcher Tow Truck Name Role Phone Anthony Sr Primary Care Provider [phone] [phone] Reason for Referral * Imaging (Routine) - Closed Specialty Diagnoses / Procedures Referred By Brisa hudson Referred To Contact Radiology Diagnoses New persistent daily headache Procedures MR Brain wo Contrast Jennie Lanza PA [address] [place] [address] [facility] [address] [place] [address] Referral ID Status Reason Start Date Expiration Date Visits Re quested Visits Authorized [id number] Closed 03/06/2024 05/07/2024 1 1 Reason for Visit * Imaging (Routine) - Closed Specialty Diagnoses / Procedures Referred By Brisa hudson Referred To Contact Radiology Diagnoses New persistent daily headache Procedures MR Brain wo Contrast Jennie Lanza PA [address] [place] [address] [facility] [address] [place] [address] Referral ID Status Reason Start Date Expiration Date Visits Re quested Visits Authorized [id number] Closed 03/06/2024 05/07/2024 1 1 Encounter Details Date Type Department Care Team (Latest Contact Info) Description 03/09/2024 12:40 PM EST - 03/09/2024 11:59 PM EST Hospital Encounter Radiology Department - [address] [phone] New persistent daily headache Discharge Disposition: Home or Self Care Social History Tobacco Use Types Packs/Day Years [...] on file documented as of this encounter Medications at Time of Discharge Medication Sig Dispensed Refills Start Date End Date acetaminophen (Tylenol Extra Strength) 500 mg tablet Take by mouth if needed. albuterol 2.5 mg /3 mL (0.083 %) nebulizer solution Inhale 3 mL (2.5 mg total) by mouth every 4 (four) hours if needed for wheezing or shortness of breath (cough). albuterol HFA (PROAIR HFA ; PROVENTIL HFA ; VENTOLIN HFA) 90 mcg/actuation inhaler Inhale 2 puffs by mouth every 4 (four) hours if needed for shortness of breath or wheezing. 01/06/2024 aspirin 81 mg EC tablet Take 1 tablet (81 mg total) by mouth 1 (one) time each day. celecoxib (CeleBREX) 200 mg capsule Take 1 capsule (200 mg total) by mouth 1 (one) time each day. 01/06/2024 finasteride (PROSCAR) 5 mg tablet Take 1 tablet (5 mg total) by mouth 1 (one) time each day. fluticasone propionate (FLONASE) 50 mcg/actuation nasal spray 2 sprays in each nostril once per day for 2 weeks. 01/14/2021 furosemide (LASIX) 20 mg tablet TAKE 1 TABLET BY MOUTH DAILY NEEDED FOR LEG SWELLING 90 tablet 1 01/30/2024 methIMAzole (TAPAZOLE) 5 mg tablet Take 1 tablet (5 mg total) by mouth. 01/18/2023 metoprolol succinate (TOPROL-XL) 25 mg 24 hr tablet Take 0.5 tablets (12.5 mg total) by mouth 1 (one) time each day. 45 tablet 3 01/25/2024 omeprazole (PriLOSEC) [address] capsule Take 1 capsule (20 mg total) by mouth 2 (two) times a day. sertraline (ZOLOFT) 100 mg tablet Take 2 tablets (200 mg total) by mouth 1 (one) time each day. 08/03/2022 tamsulosin (FLOMAX) 0.4 mg 24 hr capsule Take 2 capsules (0.8 mg total) by mouth 1 (one) time each day. 03/02/2021 traMADoL (ULTRAM) 50 mg tablet Take 1 tablet (50 mg total) by mouth. 01/06/2024 atorvastatin (LIPITOR) 40 mg tabletIndications:Other amnesia,Pure hypercholesterolemia, unspecified TAKE 1 TABLET BY MOUTH EVERY DAY 90 tablet 1 02/10/2024 03/13/2024 LORazepam (ATIVAN) 0.5 mg tablet Take 1 tablet (0.5 mg total) by mouth. 01/06/2024 03/20/2024 documented as of this encounter Discharge Disposition Disposition Code Departure Means Destination Home or Self Care documented in this encounter Plan of Treatment Upcoming Encounters Date Type Department Care Team (Late st Contact Info) Description 04/18/2024 7:30 AM EST Hospital Encounter [facility] OR [address] [place] [phone] Lobo Starr MD 300 Berna Arizmendi [address] [address] 04/18/2024 7:30 AM EST - 04/18/2024 10:30 AM EST Surgery [facility] OR [address] [place] [phone] Lobo Starr MD 300 Berna Arizmendi [address] [address] L2-3 LUMBAR LAMINECTOMY & DECOMPRESSION [34866 (CPT??) +1 more] 05/01/2024 3:30 PM EST Office Visit Adult [address] [phone] Anthony Sr, PA [address] [place] [address] 05/25/2024 2:00 PM EDT Consult Vascular Surgery - [place] [address] [place] [phone] Willam Dumont MD [address] [address] 06/12/2024 10:45 AM EDT Office Visit [address] [phone] Anthony Sr, PA [address] [place] [address] Scheduled Procedures Name Priority Associated Diagnoses Date/Ti me DECOMPRESSION LUMBAR Spinal stenosis, lumbar region with neurogenic claudication 04/18/2024 7:30 AM EST documented as of this encounter Procedures Procedure Name Priority Date/Time Associated Diagnosis Comments MR BRAIN WO CONTRAST Routine 03/09/2024 1:14 PM EST New persistent daily headache documented in this encounter Results * MR Brain wo Contrast (03/09/2024 1:14 PM EST) Anatomical Region Laterality Modality Head and Neck Magnetic Resonan ce 03/09/2024 5:08 PM EST Impressions 03/10/2024 11:16 AM EST 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 ??Minimally progressive white matter signal abnormalities which are likely related to chronic small vessel ischemic disease. ??No evidence of a mass or mass effect. POS - [id number] -------- FINAL REPORT -------- Dictated By: Gladys Barragan Dictated Date: 03/09/2024 17:08 ET Assigned Physician: Gladys Barragan Reviewed and Electronically Signed By: Gladys Barragan Signed Date: 03/10/2024 11:16 ET Workstation ID: [id number] Transcribed By: Self Edit Transcribed Date: 03/09/2024 17:40 ET Narrative 03/10/2024 11:16 AM EST EXAM: Brain MRI HISTORY: ??New right-sided headache for one month. COMPARISON: 01/26/2021 TECHNIQUE: Exam performed on a 1.5 Hannah high-field MRI scanner. ??Multiplanar imaging performed without contrast. ?? FINDINGS: 0.8 cm area of restricted diffusion involving the cortex of the right occipital lobe which has corresponding T2/FLAIR hyperintense signal from a recent infarct. ??Focus of increased signal on diffusion-weighted imaging involving the medial right parietal lobe at the vertex appears isointense on ADC and shows subtle T2 hyperintense signal. ??No evidence of intracranial hemorrhage. ?? Scattered areas of T2/FLAIR hyperintense signal in the periventricular, subcortical, and deep white matter again noted, mild in degree, with several new areas in the right cerebral hemisphere. No evidence of a mass, mass effect, or midline shift. ??Mild to moderate atrophy again noted. ??No hydrocephalus. ??Basal cisterns are patent. ??No cerebellar ectopia. ??Pituitary gland is not enlarged. ??Normal vascular flow-voids appear present in the major intracranial arteries at the skull base. No significant paranasal sinus disease or significant fluid signal within mastoid air cells. Procedure Note Gladys Barragan MD - 03/10/2024 EXAM: Brain MRI HISTORY: New right-sided headache for one month. COMPARISON: 01/26/2021 TECHNIQUE: Exam performed on a 1.5 Hannah high-field MRI scanner.Multiplanar imaging performed without contrast. FINDINGS: 0.8 cm area of restricted diffusion involving the cortex of the rightoccipital lobe which has corresponding T2/FLAIR hyperintense signal from arecent infarct. Focus of increased signal on diffusion-weighted imaginginvolving the medial right parietal lobe at the vertex appears isointenseon ADC and shows subtle T2 hyperintense signal. No evidence ofintracranial hemorrhage. Scattered areas of T2/FLAIR hyperintense signal in the periventricular,subcortical, and deep white matter again noted, mild in degree, withseveral new areas in the right cerebral hemisphere. No evidence of a mass, mass effect, or midline shift. Mild to moderateatrophy again noted. No hydrocephalus. Basal cisterns are patent. Nocerebellar ectopia. Pituitary gland is not enlarged. Normal vascularflow-voids appear present in the major intracranial arteries at the skullbase. No significant paranasal sinus disease or significant fluid signal withinmastoid air cells. IMPRESSION: Few very small acute/subacute infarcts in the right occipital and rightparietal lobes. Minimally progressive white matter signal abnormalitieswhich are likely related to chronic small vessel ischemic disease. Noevidence of a mass or mass effect. POS - [id number] -------- FINAL REPORT -------- Dictated By: Gladys Barragan Dictated Date: 03/09/2024 17:08 ET Assigned Physician: Gladys Barragan Reviewed and Electronically Signed By: Gladys Barragan Signed Date: 03/10/2024 11:16 ET Workstation ID: [id number] Transcribed By: Self Edit Transcribed Date: 03/09/2024 17:40 ET Jennie Pool CALLE [facility] MRI PROCEDURES documented in this encounter Visit Diagnoses Diagnosis New persistent daily headache New daily persistent headache Spinal stenosis, lumbar region with neurogenic claudication documented in this encounter Care Teams Dispatcher Tow Truck Relationship Specialty Start Date End Date Anthony Sr PA [address] [place] [address] PCP - General Internal Medicine 03/06/24 documented as of this encounter
--- OUTSIDE RECORDS SUMMARY | 2024-03-30 15:56 | XMS_ITS | Encounter Summary ---
Author Organization [facility] Address [address] [place] [address] Care Team Providers Care Neon Installer Name Role Phone Anthony Sr Primary Care Provider [phone] Encounter Details Date Type Department Care Team (Late st Contact Info) Description 02/03/2024 Telephone Adult Medicine [address] [phone] Nikki Ellison MA Social History Tobacco Use Types Packs/Day Years [...] on file documented as of this encounter Plan of Treatment Upcoming Encounters Date Type Department Care Team (Late st Contact Info) Description 04/18/2024 7:30 AM EST Hospital Encounter [facility] OR [address] [place] [phone] Lobo Starr MD 300 Berna Arizmendi [address] [address] 04/18/2024 7:30 AM EST - 04/18/2024 10:30 AM EST Surgery [facility] OR [address] [place] [address] Lobo Starr MD 300 [facility] [address] [place] [address] L2-3 LUMBAR LAMINECTOMY & DECOMPRESSION [37922 (CPT??) +1 more] 05/01/2024 3:30 PM EST Office Visit Adult Medicine [address] [phone] Anthony rS PA [address] [place] [address] 05/25/2024 2:00 PM EDT Consult Vascular Surgery [facility] [address] [place] [address] Willam Dumont MD 300 [facility] [address] [place] [address] 06/12/2024 10:45 AM EDT Office Visit Adult [address] [phone] Anthony Sr PA [address] [place] [address] Scheduled Procedures Name Priority Associated Diagnoses Date/Ti me DECOMPRESSION LUMBAR Spinal stenosis, lumbar region with neurogenic claudication 04/18/2024 7:30 AM EST documented as of this encounter Visit Diagnoses Not on filedocumented in this encounter Care Teams Neon Installer Relationship Specialty Start Date End Date Anthony Sr PA PCP - General Internal Medicine 02/26/20 03/05/24 documented as of this encounter
--- OUTSIDE RECORDS SUMMARY | 2024-03-30 15:56 | XMS_ITS | Encounter Summary ---
Author Organization [facility] Address [address] [place] [address] Care Team Providers Care Jewelry Drill Operator Name Role Phone Anthony Sr Primary Care Provider [phone] Reason for Visit * Reason Onset Date Comments faxed order 02/01/2024 [facility] order #[id number] Encounter Details Date Type Department Care Team (Late st Contact Info) Description 02/01/2024 Telephone Adult Medicine [address] [phone] Nikki Ellison [place] faxed order ([facility] order #[id number]) Social History Tobacco Use Types Packs/Day Years [...] Progress Notes * Katie Todd MA - 03/12/2024 2:47 PM EST .ORDER() FAXED BACK ON 03/12/24 W/ CONFIRMATION OF TRANSMISSION * Katie Todd MA - 02/12/2024 9:26 PM EST Orders faxed back on 02/10/24 with confirmation of transmission. * Nikki Ellison MA - 02/01/2024 10:10 AM EST Received order from [facility] order #[id number]. Please sign and fax to [phone] documented in this encounter Plan of Treatment Upcoming Encounters Date Type Department Care Team (Late st Contact Info) Description 04/18/2024 7:30 AM EST Hospital Encounter [facility] OR [address] [place] [phone] Lobo Starr MD [address] [address] 04/18/2024 7:30 AM EST - 04/18/2024 10:30 AM EST Surgery [facility] OR [address] [place] [phone] Lobo Starr MD [address] [address] L2-3 LUMBAR LAMINECTOMY & DECOMPRESSION [78252 (CPT??) +1 more] 05/01/2024 3:30 PM EST Office Visit Adult Medicine [facility] [address] [place] [address] Anthony Sr PA [address] [place] [address] 05/25/2024 2:00 PM EDT Consult Vascular Surgery - [place] 300 [facility] [address] [place] [phone] Willam Dumont MD [address] [address] 06/12/2024 10:45 AM EDT Office Visit Adult Medicine [facility] [address] [place] [phone] Anthony Sr PA [address] [place] [phone] Scheduled Procedures Name Priority Associated Diagnoses Date/Ti me DECOMPRESSION LUMBAR Spinal stenosis, lumbar region with neurogenic claudication 04/18/2024 7:30 AM EST documented as of this encounter Visit Diagnoses Not on filedocumented in this encounter Care Teams Jewelry Drill Operator Relationship Specialty Start Date End Date Anthony Sr PA [address] [place] [address] PCP - General Internal Medicine 03/06/24 documented as of this encounter
--- OUTSIDE RECORDS SUMMARY | 2024-03-30 15:56 | XMS_ITS | Encounter Summary ---
Author Organization [facility] Address [address] [place] [address] Care Team Providers Care Spa Coordinator Name Role Phone Anthony Sr Primary Care Provider [phone] Reason for Visit * Imaging (Routine) - Closed Specialty Diagnoses / Procedures Referred By Contac t Referred To Contact Diagnoses 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) Asymptomatic bilateral carotid artery stenosis Procedures Vascular US duplex carotid bilateral Jennie Lanza PA [address] [place] [address] [facility] Referral ID Status Reason Start Date Expiration Date Visits Re quested Visits Authorized [id number] Closed 03/13/2024 03/13/2025 1 1 Encounter Details Date Type Department Care Team (Latest Contact Info) Description 03/20/2024 12:30 PM EST Ancillary Procedure [facility] - [address] [place] [address] [place] [address] Occipital infarction (CMS/HCC); Parietal lobe infarction (CMS/HCC); Asymptomatic bilateral carotid artery stenosis Social History Tobacco Use Types Packs/Day Years [...] your loved ones. For example, child care associate or elderly care for an older adult? [...] Description 04/18/2024 7:30 AM EST Hospital Encounter [facility] [place] [address] [place] [phone] Lobo Starr MD [address] [address] 04/18/2024 7:30 AM EST - 04/18/2024 10:[address] [facility] [place] [address] [place] [phone] Lobo Starr MD [address] [address] L2-3 LUMBAR LAMINECTOMY & DECOMPRESSION [40738 (CPT??) +1 more] 05/01/2024 3:30 PM EST Office Visit Adult Medicine [address] [phone] Anthony Sr, PA [address] [place] [address] 05/25/2024 2:00 PM EDT Consult Vascular Surgery - [place] [address] [phone] Willam Dumont MD [address] [address] 06/12/2024 10:45 AM EDT Office Visit Adult Medicine [address] [phone] Anthony Sr PA [address] [place] [address] Scheduled Procedures Name Priority Associated Diagnoses Date/Ti me DECOMPRESSION LUMBAR Spinal stenosis, lumbar region with neurogenic claudication 04/18/2024 7:30 AM EST documented as of this encounter Procedures Procedure Name Priority Date/Time Associated Diagnosis Comments VAS US DUPLEX CAROTID BILATERAL Routine 03/20/2024 12:51 PM EST 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) Asymptomatic bilateral carotid artery stenosis documented in this encounter Results * Vascular US duplex carotid bilateral (03/20/2024 12:51 PM EST) Left CCA dist sys 69 cm/s CV VAS LAB Left CCA dist mason 17 cm/s CV VAS LAB LEFT COMMON CAROTID ARTERY MID S 63 cm/s CV VAS LAB LEFT COMMON CAROTID ARTERY MID D 20 cm/s CV VAS LAB Left CCA prox sys 79 cm/s CV VAS LAB Left CCA prox mason 18 cm/s CV VAS LAB Left ICA dist sys 141 cm/s CV VAS LAB Left ICA dist mason 27 cm/s CV VAS LAB Left ICA mid sys 184 cm/s CV VAS LAB Left ICA mid mason 43 cm/s CV VAS LAB Left ICA prox sys 156 cm/s CV VAS LAB Left ICA prox mason 38 cm/s CV VAS LAB Left ECA sys 125 cm/s CV VAS LAB LEFT EXTERNAL CAROTID ARTERY D 18 cm/s CV VAS LAB Left Prox Subclavian PSV 121 cm/s CV VAS LAB Left vertebral sys 43 cm/s CV VAS LAB Right cca dist sys 67 cm/s CV VAS LAB Right CCA dist mason 20 cm/s CV VAS LAB RIGHT COMMON CAROTID ARTERY MID S 65 cm/s CV VAS LAB RIGHT COMMON CAROTID ARTERY MID D 18 cm/s CV VAS LAB Right CCA prox sys 92 cm/s CV VAS LAB Right CCA prox mason 22 cm/s CV VAS LAB Right ICA dist sys 99 cm/s CV VAS LAB Right ICA dist mason 35 cm/s CV VAS LAB Right ICA mid sys 75 cm/s CV VAS LAB Right ICA mid mason 23 cm/s CV VAS LAB Right ICA prox sys 72 cm/s CV VAS LAB Right ICA prox mason 19 cm/s CV VAS LAB Right eca sys 125 cm/s CV VAS LAB RIGHT EXTERNAL CAROTID ARTERY D 19 cm/s CV VAS LAB Right Prox Subclavian PSV 140 cm/s CV VAS LAB Right vertebral sys 63 cm/s CV VAS LAB RIGHT VERTEBRAL ARTERY D 18 cm/s CV VAS LAB Anatomical Region Laterality Modality Vascular, Abdomen Ultrasound Narrative 03/23/2024 5:27 PM EST RIGHT. 1. There is atherosclerotic plaque in the right carotid system as noted below. 2. There is a < 50% stenosis in the right internal carotid artery based on Doppler velocity. ??Of note, there is significant acoustic shadowing in the right ICA which may lead to underestimation of the degree of stenosis. 3. The subclavian and vertebral arteries have normal Doppler flow patterns. LEFT. 1. There is atherosclerotic plaque in the left carotid system as noted below. 2. There is a 50-69% stenosis in the left internal carotid artery based on Doppler velocity. 3. The subclavian and vertebral arteries have normal Doppler flow patterns. The interpretation of this study was done following the diagnostic criteria recommendations contained in the [employer]AC updated recommendations for carotid stenosis interpretation criteria document published by [employer] in January 2023. Right Carotid The CCA has mild homogeneous plaque. The ICA has mild heterogeneous plaque. The ECA has mild heterogeneous plaque. Vertebral flow is antegrade. Left Carotid The CCA has mild heterogeneous plaque. The ICA has moderate heterogeneous plaque. The ECA has mild heterogeneous plaque. Vertebral flow is antegrade. Gusset Maker Details A snyder scale, color and doppler analysis ultrasound was performed. During the study longitudinal and transverse views were obtained. Pulsed wave doppler was performed. Overall the study quality was adequate. Jennie Pool CALLE CV VASCULAR PROCEDUR ES documented in this encounter Visit Diagnoses Diagnosis Occipital infarction (CMS/HCC) Unspecified cerebral artery occlusion with cerebral infarction Parietal lobe infarction (CMS/HCC) Asymptomatic bilateral carotid artery stenosis Spinal stenosis, lumbar region with neurogenic claudication documented in this encounter Additional Health Concerns Assessment Noted Time PHQ-9 Depression Total Score: 1 03/19/19 25 2:02 PM EST A fall risk assessment has been complete d for the patient 03/19/2024 2:02 PM EST documented as of this encounter Care Teams Spa Coordinator Relationship Specialty Start Date End Date Anthony Sr PA [address] [place] [address] PCP - General Internal Medicine 03/06/24 documented as of this encounter
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
--- OUTSIDE RECORDS SUMMARY | 2024-03-30 15:56 | XMS_ITS | Encounter Summary ---
Author Organization [facility] Address [address] [place] [address] Care Team Providers Care Construction And Maintenance Inspector Name Role Phone Anthony Sr Primary Care Provider [phone] Reason for Visit * Reason Comments home health cert Encounter Details Date Type Department Care Team (Late st Contact Info) Description 01/04/2024 Billing Patient Not Present Adult Medicine [facility] [address] [place], [place] [phone] Anthony Sr PA [address] [place] [address] Nontraumatic subdural hemorrhage (CMS/HCC) (Primary Dx); COPD without exacerbation (CMS/HCC); Primary hypertension; Postconcussion syndrome; Anemia, unspecified type; Pneumonia due to infectious organism, unspecified laterality, unspecified part of lung; Hyperlipidemia, unspecified hyperlipidemia type; Hypothyroidism, unspecified type; Osteoarthritis, unspecified osteoarthritis type, unspecified site; Benign prostatic hyperplasia, unspecified whether lower urinary tract symptoms present; Dependent on wheelchair Social History Tobacco Use Types Packs/Day Years [...] for your loved ones. For example, child and family counselor or elderly care for an older [...] Progress Notes * Katie Todd MA - 01/04/2024 11:59 PM EDT Start of Care Date: 01/04/24 Date of certification period: 01/04/24-03/03/24 Date of service = signature date 01/20/24 Hospice patient: no Home Care Agency: [facility] Order faxed, entered and copy sent to scan documented in this encounter Plan of Treatment Upcoming Encounters Date Type Department Care Team (Late st Contact Info) Description 04/18/2024 7:30 AM EST Hospital Encounter [facility] [place] [address] [place] [phone] Lobo Starr MD [address] [address] 04/18/2024 7:30 AM EST - 04/18/2024 10:30 AM EST Surgery [facility] [place] [address] [place] [phone] Lobo Starr MD [address] [address] L2-3 LUMBAR LAMINECTOMY & DECOMPRESSION [[id number] (CPT??) +1 more] 05/01/2024 3:30 PM EST Office Visit Adult Medicine [facility] [address] [place] [phone] Anthony Sr PA [address] [place] [address] 05/25/2024 2:00 PM EDT Consult Vascular Surgery - [place] [address] [facility] [address] [place] [phone] Willam Dumont MD [address] [place] [phone] 06/12/2024 10:45 AM EDT Office Visit Adult Medicine [facility] [address] [place] [phone] Anthony Sr PA [address] [place] [phone] Scheduled Procedures Name Priority Associated Diagnoses Date/Ti me DECOMPRESSION LUMBAR Spinal stenosis, lumbar region with neurogenic claudication 04/18/2024 7:30 AM EST documented as of this encounter Visit Diagnoses Diagnosis Nontraumatic subdural hemorrhage (CMS/HCC)- Primary Subdural hemorrhage COPD without exacerbation (CMS/HCC) Primary hypertension Unspecified essential hypertension Postconcussion syndrome Anemia, unspecified type Pneumonia due to infectious organism, unspecified laterality, unspecified part of lung Hyperlipidemia, unspecified hyperlipidemia type Hypothyroidism, unspecified type Osteoarthritis, unspecified osteoarthritis type, unspecified site Benign prostatic hyperplasia, unspecified whether lower urinary tract symptoms present Dependent on wheelchair Wheelchair dependence Spinal stenosis, lumbar region with neurogenic claudication documented in this encounter Care Teams Construction And Maintenance Inspector Relationship Specialty Start Date End Date Anthony Sr PA [address] [place] [phone] PCP - General Internal Medicine 03/06/24 documented as of this encounter
--- OUTSIDE RECORDS SUMMARY | 2024-03-30 15:56 | XMS_ITS | Encounter Summary ---
Author Organization [facility] Address [address] [place] [address] Care Team Providers Care [employer] Officer Name Role Phone Anthony Sr Primary Care Provider [phone] Reason for Visit * Reason Comments Follow-up Encounter Details Date Type Department Care Team (Late st Contact Info) Description 03/19/2024 2:00 PM EST Office Visit Adult Medicine [address] [phone] Jennie Lanza PA [address] [place] [phone] Occipital infarction (CMS/HCC) (Primary Dx); Parietal lobe infarction (CMS/HCC); Asymptomatic bilateral carotid artery stenosis; New persistent daily headache; Mixed hyperlipidemia Social History Tobacco Use Types Packs/Day Years Used Date Smoking Tobacco: Former Cigarettes Q uit: 03/07/1997 Smokeless Tobacco: Never Tobacco Cessation:Counseling Given: Not Answered Alcohol Use Standard Drinks/Week Comments Yes 0 [...] care for your loved ones. For example, special needs child caregiver or elderly care for an older adult? [...] on file documented as of this encounter Last Filed Vital Signs Vital Sign Reading Time Taken Comments Blood Pressure 100/60 03/19/2024 2:03 PM EST Pulse 73 03/19/2024 2:03 PM EST Temperature 36.2 ??C (97.2 ??F) 03/19/2024 2:03 PM ES T Respiratory Rate 16 03/19/2024 2:03 PM EST Oxygen Saturation - - Inhaled Oxygen Concentration - - Weight 83.2 kg (183 lb 6.4 oz) 03/19/2024 2:03 P M EST Height 170.2 cm (5' 7 ) 03/19/2024 2:03 PM EST Body Mass Index 28.72 03/19/2024 2:03 PM EST documented in this encounter Ordered Prescriptions Prescription Sig Dispensed Refills Start Date End Da te gabapentin (NEURONTIN) 100 mg capsule Take 1 capsule (100 mg total) by mouth at bedtime. 30 each 5 03/19/2024 documented in this encounter Progress Notes * LUC Hale - 03/19/2024 2:00 PM EST CHIEF COMPLAINT: Follow-up IDENTIFIER: Timothy Cagle is a 84 y.o. old male. HPI: Patient is an 84-year-old male who presents to the office today for follow-up on brain MRI. He is accompanied by his son today. I saw him in the office 2 weeks ago and he was complaining of right-sided headache x 1 month. He still gets the headache. MRI showed few very small acute/subacute infarctsin the right occipital and right parietal lobes. Minimally progressive white matter signal abnormalities which are likely related to chronic small vessel ischemic disease. No evidence of a mass or mass effect. He was restarted on aspirin 81 mg. Lipitor was increased to 80 mg. Patient reports that since the last office visit, he has been having vision changes. He states that he sees shapes around the borders of objects, such as circles around the calendar. He last saw his principal database developer 3- 4 weeks ago. He continues to have right-sided headache. He is not having any difficulties with speech, swallowing. No weakness. I previously referred him to vascular, neurology. He has a carotid artery ultrasound scheduled for tomorrow. I ordered event monitor as well. Echocardiogram was recent 10/2023, EF 60-65%. Moderate . ROS: GENERAL: No malaise, significant weight loss or fever HEENT: See HPI RESPIRATORY: No cough, wheezing or shortness of breath CARDIOVASCULAR: No chest pain, leg swelling or palpitations GI: No abdominal discomfort, blood in stools or black stools NEURO: +headache, no syncope, seizures, weakness or numbness PAST MEDICAL HISTORY: Patient Active Problem List Diagnosis Date Noted Occipital infarction ([facility]) 03/19/2024 Parietal lobe infarction ([facility]) 03/19/2024 Nontraumatic subdural hemorrhage ([facility]) 03/18/2024 Postconcussion syndrome 03/18/2024 Anemia, unspecified 03/18/2024 Pneumonia 03/18/2024 Hyperlipemia 03/18/2024 Hypothyroidism 03/18/2024 Osteoarthritis 03/18/2024 Benign prostate hyperplasia 03/18/2024 Dependent on wheelchair 03/18/2024 COPD without exacerbation ([facility]) 01/17/2024 Headache 11/28/2023 AAA (abdominal aortic aneurysm) ([facility]) 07/15/2023 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 11/02/2022 Orthostatic hypotension 10/11/2022 Paroxysmal supraventricular tachycardia ([facility]) 10/11/2022 Primary hypertension 04/07/2022 Bronchiectasis without complication ([facility]) 08/17/2021 Mild cognitive impairment 05/11/2021 Benign prostatic hyperplasia with lower urinary tract symptoms 09/12/2020 Asymptomatic bilateral carotid artery stenosis 03/04/2020 Carotid stenosis, asymptomatic, left 09/11/2019 Multinodular goiter 12/10/2018 Nonrheumatic aortic valve stenosis 04/27/2016 Hx of total knee replacement 12/17/2014 Depression 12/31/2011 CAD (coronary artery disease) 08/25/2011 Common bile duct stone 12/31/2010 Hyperthyroidism 03/17/2009 Diverticulosis of colon 12/21/2006 GERD (gastroesophageal reflux disease) 07/05/2005 Impotence of organic origin 07/05/2005 Urinary calculus 02/04/2005 Mixed hyperlipidemia 02/02/2005 Past Surgical History: Procedure Laterality Date CARPAL TUNNEL RELEASE PROCEDURE: OH NEUROPLASTY &/TRANSPOS MEDIAN NRV CARPAL TUNNE; COMMENT: bilat 2009 CATARACT EXTRACTION PROCEDURE: HISTORICAL CATARACT REMOVAL; COMMENT: 2012 CHOLECYSTECTOMY 2019 PROCEDURE: HISTORICAL CHOLECYSTECTOMY; COMMENT: [facility] OTHER SURGICAL HISTORY 12/21/2006 PROCEDURE: COLON CA SCRN NOT HI RSK IND; COMMENT: Neg/diverticulosis. OTHER SURGICAL HISTORY PROCEDURE: [place] PNXR ASPIR HYDROCELE TUNICA VAGIS W/WO NJX MED; COMMENT: 2006 OTHER SURGICAL HISTORY PROCEDURE: HISTORY OTHER; COMMENT: upper esophageal sphincterotomy complicated by intest perf OTHER SURGICAL HISTORY 06/16/2021 PROCEDURE: [place] BRONCHOSCOPY BRONCHIAL/ENDOBRNCL BX 1+ SITES; COMMENT: Dr. Medley, brushings takensuctioning of airways TOTAL KNEE ARTHROPLASTY Bilateral PROCEDURE: HISTORICAL TOTAL KNEE REPLACE; COMMENT: left 2004 right 2014 SOCIAL HISTORY: Social History Tobacco Use Smoking status: Former Current packs/day: 0.00 Types: Cigarettes Quit date: 03/07/1997 Years since quittin.0 Smokeless tobacco: Never Substance Use Topics Alcohol use: Yes FAMILY HISTORY: Family History Problem Relation Name Age of Onset Other (Other: Rheumatic fever) Mother MEDICATIONS DISCONTINUED/REORDERED: There are no discontinued medications. ACTIVE MEDICATIONS: Outpatient Medications Marked as Taking for the 03/19/24 encounter (Office Visit) with LUC Hale Medication Sig Dispense Refill acetaminophen (Tylenol Extra Strength) 500 mg tablet [...] needed for shortness of breath or wheezing. aspirin 81 mg EC tablet Take 1 tablet (81 mg total) by mouth 1 (one) time each day. atorvastatin (LIPITOR) 80 mg tablet Take 1 tablet (80 mg total) by mouth 1 (one) time each day. 30 each 5 celecoxib (CeleBREX) 200 mg capsule Take 1 capsule (200 mg total) by mouth 1 (one) time each day. finasteride (PROSCAR) 5 mg tablet Take 1 tablet (5 mg total) by mouth 1 (one) time each day. fluticasone propionate (FLONASE) 50 mcg/actuation nasal spray 2 sprays in each nostril once per dayfor 2 weeks. furosemide (LASIX) 20 mg tablet TAKE 1 TABLET BY MOUTH DAILY NEEDED FOR LEG SWELLING 90 tablet 1 LORazepam (ATIVAN) 0.5 mg tablet Take 1 tablet (0.5 mg total) by mouth. methIMAzole (TAPAZOLE) 5 mg tablet Take 1 tablet (5 mg total) by mouth. metoprolol succinate (TOPROL-XL) 25 mg 24 hr tablet Take 0.5 tablets (12.5 mg total) by mouth 1 (one) time each day. 45 tablet 3 omeprazole (PriLOSEC) [address] capsule Take 1 capsule (20 mg total) by mouth 2 (two) times a day. sertraline (ZOLOFT) 100 mg tablet Take 2 tablets (200 mg total) by mouth 1 (one) time each day. tamsulosin (FLOMAX) 0.4 mg 24 hr capsule Take 2 capsules (0.8 mg total) by mouth 1 (one) time each day. traMADoL (ULTRAM) 50 mg tablet Take 1 tablet (50 mg total) by mouth. ALLERGIES: Allergies Allergen Reactions Oxycodone-Acetaminophen PHYSICAL EXAM: Blood pressure 100/60, pulse 73, temperature 36.2 ??C (97.2 ??F), temperature source Temporal, resp. rate 16, height 1.702 m (67 ), weight 83.2 kg (183 lb 6.4 oz). Body mass index is 28.72 kg/m??. BMI is greater than 25.0 (above the normal range) - see Plan APPEARANCE: Alert and in no acute distress EYES: PERRLA, conjunctiva and sclera normal. EOMs intact EARS: External ears normal. Canals clear. TMs normal NECK: No cervical tenderness HEART: RRR with normal S1 and S2, no murmurs, no gallops LUNG: Clear to auscultation EXTREMITIES: Chronic LLE edema NEURO: Awake and alert. No focal deficits. Cranial nerves II to XII intact. Sensation is intact bilaterally in upper and lower extremities. Strength is 5 out of 5 in upper and lower extremities. Reflexes intact. Cerebellar function intact with [id number] and rapid alternating movements. Rombergnegative LABS: Component Latest Ref Rng & Units 12/09/2023 12/09/2023 12/09/2023 11:36 AM 11:36 AM 11:36 AM GLUCOSE, PLASMA 70 - 100 mg/dL 77 Blood Urea Nitrogen 5 - 25 mg/dL 22 creatinine 0.7 - 1.3 mg/dL 1.10 GLOMERULAR FILTRATION RATE >60 67 NA (WB) 135 - 145 mEq/L 140 K 3.5 - 5.5 mmol/L 4.5 Chloride 96 - 110 mmol/L 108 CARBON DIOXIDE 21 - 32 mmol/L 26 ANION GAP 3 - 11 6 CALCIUM 8.5 - 10.5 mg/dL 9.1 PROTEIN, TOTAL 6.0 - 8.0 G/dL 6.3 Albumin 3.2 - 5.0 G/dL 3.8 Bilirubin, total 0.0 - 1.4 mg/dL 0.4 AST (SGOT) 10 - 42 U/L 17 ALT (SGPT) 10 - 60 U/L 17 Alk Phos 42 - 121 U/L 111 Cholesterol 0 - 200 mg/dL 169 TRIGLYCERIDES 0 - 150 mg/dL 103 HDL >40 mg/dL 58 LDL 0 - 100 mg/dL 91 TC-HDLC RATIO 0 - 4.4 mg/dL 2.9 HbA1C <6.5 % 5.6 ESTIMATED AVERAGE GLUCOSE mg/dL 114 IMAGING: EXAM: Brain MRI HISTORY: New right-sided headache for one month. COMPARISON: 01/26/2021 TECHNIQUE: Exam performed on a 1.5 Hannah high-field MRI scanner. Multiplanar imaging performed without contrast. FINDINGS: 0.8 cm area of restricted diffusion involving the cortex of the right occipital lobe which has corresponding T2/FLAIR hyperintense signal from a recent infarct. Focus of increased signal on diffusion-weighted imaging involving the medial right parietal lobe at the vertex appears isointense on ADC and shows subtle T2 hyperintense signal. No evidence of intracranial hemorrhage. Scattered areas of T2/FLAIR hyperintense signal in the periventricular, subcortical, and deep whitematter again noted, mild in degree, with several new areas in the right cerebral hemisphere. No evidence of a mass, mass effect, or midline shift. Mild to moderate atrophy again noted. No hydrocephalus. Basal cisterns are patent. No cerebellar ectopia. Pituitary gland is not enlarged. Normalvascular flow-voids appear present in the major intracranial arteries at the skull base. No significant paranasal sinus disease or significant fluid signal within mastoid air cells. IMPRESSION: 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 Minimally progressive white matter signal abnormalities which are likely related to chronic small vessel ischemic disease. No evidence of a mass or mass effect. IMPRESSION/PLAN: 1. Occipital infarction (CMS/HCC) 2. Parietal lobe infarction (CMS/HCC) 3. Asymptomatic bilateral carotid artery stenosis 4. New persistent daily headache 5. Mixed hyperlipidemia Medication and lab orders: No orders of the defined types were placed in this encounter. Other orders: None . Discussed with Dr. Lang who is my preceptor. MRI showed few very small acute/subacute infarcts in the right occipital and right parietal lobes. Minimally progressive white matter signal abnormalities which are likely related to chronic small vessel ischemic disease. No evidence of a massor mass effect. He was restarted on aspirin 81 mg. Lipitor was increased to 80 mg. Patient reports that since the last office visit, he has been having vision changes. He will book follow up with principal database developer, may need visual field testing. He continues to have right-sided headache, will trial gabapentin 100 mg at nighttime. I previously referred him to vascular, neurology. He has a carotid artery ultrasound scheduled for tomorrow. I ordered an event monitor as well. Echocardiogram was recent 10/2023, EF 60-65%. Moderate . No need for PT/OT/ST referrals. Advised patient to minimize Celebrex use. I have applied the code G2211 to this patient???s visit as the primary care provider dealing with (occipital infarction, parietal lobe infarction, carotid artery stenosis, headaches, max hyperlipidemia) leading to the extensive work up, and management associated with the medical care of this patient. This patient???s serious conditions and complex medical conditions also required several consultants needing management and coordination through my office. I have reviewed all information as it pertains to the management of this patient for final approval. I have spent 59 minutes during this encounter including preparing to see the patient, reviewing labs and imaging, performing a medically appropriate examination, extensive counseling/education, discussing benefits/side effects of pharmacologic theraputic options and documenting clinical informationin the electronic health record. None of this time was spent on separate billable services or procedures. Advised the patient to call me if any problems. Patient understands the plan. Patient is in agreement with the plan. Today's documentation was made using voice recognition software.This note may contain grammatical errors secondary to this software. Jennie Lanza PA-C * Guerda Oliveira MA - 03/19/2024 2:00 PM EST Social Influencers of Health Who provided answers?: Self Within the past 12 months we worried whether our food would run out before we got money to buy more.: Never true Within the past 12 months the food we bought just didn't last and we didn't have money to get more.: Never true How hard is it for you to pay for the very basics like food, housing, medical care, and air conditioning / heating?: Not very hard Are you worried that in the next 2 months you may not have stable housing?: No Do you have access to a variety of food including fruits and vegetables?: Yes Within the last 3 months, how many times did you visit the emergency department for your medical care?: 0 Has the lack of transportation kept you from meetings, work, or from getting things needed for daily living?: No Has the lack of transportation kept you from medical appointments or from getting medications?: No How often do you feel lonely or isolated from those around you?: Never How often do you need to have someone help you when you read instructions, pamphlets, or other written material from your doctor or pharmacy?: Never Depression Screening Will the patient answer the depression risk questions?: Yes Over the last 2 weeks, how often have you been bothered by little interest or pleasure in doing things?: Several days Over the last 2 weeks, how often have you been bothered by feeling down, depressed, or hopeless?: Not at all Depression Risk: 1 Have you fallen in the past year? yes. Are you worried about falling? no. . documented in this encounter Plan of Treatment Upcoming Encounters Date Type Department Care Team (Late st Contact Info) Description 04/18/2024 7:30 AM EST Hospital Encounter [facility] [place] [address] [place] [phone] Lobo Starr MD 300 Berna Arizmendi [address] [address] 04/18/2024 7:30 AM EST - 04/18/2024 10:[address] [facility] [place] [address] [place] [phone] Lobo Starr MD 300 [facility] [address] [place] [address] L2-3 LUMBAR LAMINECTOMY & DECOMPRESSION [10260 (CPT??) +1 more] 05/01/2024 3:30 PM EST Office Visit Adult Medicine [address] [phone] Anthony Sr, PA [address] [place] [address] 05/25/2024 2:00 PM EDT Consult Vascular Surgery [facility] 300 [facility] [address] [place] [phone] Willam Dumont MD 300 [facility] [address] [place] [address] 06/12/2024 10:45 AM EDT Office Visit [address] [phone] Anthony Sr, PA [address] [place] [address] Scheduled Procedures Name Priority Associated Diagnoses Date/Ti me DECOMPRESSION LUMBAR Spinal stenosis, lumbar region with neurogenic claudication 04/18/2024 7:30 AM EST documented as of this encounter Visit Diagnoses Diagnosis Occipital infarction (CMS/HCC)- Primary Unspecified cerebral artery occlusion with cerebral infarction Parietal lobe infarction (CMS/HCC) Asymptomatic bilateral carotid artery stenosis New persistent daily headache New daily persistent headache Mixed hyperlipidemia Spinal stenosis, lumbar region with neurogenic claudication documented in this encounter Additional Health Concerns Assessment Noted Time PHQ-9 Depression Total Score: 1 03/19/19 2:02 PM EST A fall risk assessment has been complete d for the patient 03/19/2024 2:02 PM EST documented as of this encounter Care Teams Sal[employer] Officer Relationship Specialty Start Date End Date Anthony Sr PA [address] [place] [address] PCP - General Internal Medicine 03/06/24 documented as of this encounter
--- OUTSIDE RECORDS SUMMARY | 2024-03-30 15:56 | XMS_ITS | Encounter Summary ---
Author Organization [facility] Address [address] [place] [address] Care Team Providers Care Fixed Income Trading Vice President Name Role Phone Antohny Sr Primary Care Provider [phone] Reason for Visit * Reason Onset Date Comments faxed order 03/19/2024 [facility] order #[id number] Encounter Details Date Type Department Care Team (Late st Contact Info) Description 03/19/2024 Telephone Adult Medicine [address] [phone] [place], [place] faxed order ([facility] order #[id number]) Social History Tobacco Use Types Packs/Day Years [...] for your loved ones. For example, child custody evaluator or elderly care for an older adult? [...] Notes * Katie Todd MA - 03/26/2024 11:20 AM EST .ORDER() FAXED BACK ON 03/21/24 W/ CONFIRMATION OF TRANSMISSION * Nikki Scot, [place] - 03/19/2024 9:40 AM EST Received orders from [facility] order #[id number]. Please sign and fax to [phone] documented in this encounter Plan of Treatment Upcoming Encounters Date Type Department Care Team (Late st Contact Info) Description 04/18/2024 7:30 AM EST Hospital Encounter [facility] OR [address] [place] [phone] Lobo Starr MD [address] [address] 04/18/2024 7:30 AM EST - 04/18/2024 10:30 AM EST Surgery [facility] OR [address] [place] [phone] Lobo Starr MD [address] [address] L2-3 LUMBAR LAMINECTOMY & DECOMPRESSION [[address] (CPT??) +1 more] 05/01/2024 3:30 PM EST Office Visit Adult Medicine [address] [phone] Anthony Sr PA [address] [place] [address] 05/25/2024 2:00 PM EDT Consult Vascular Surgery - [place] [address] [phone] Willam Dumont MD [address] [address] 06/12/2024 10:45 AM EDT Office Visit Adult Medicine [address] [phone] Anthony Sr PA [address] [place] [address] Scheduled Procedures Name Priority Associated Diagnoses Date/Ti [...] documented as of this encounter Care Teams Fixed Income Trading Vice President Relationship Specialty Start Date End Date Anthony Sr PA [address] [place] [address] PCP - General Internal Medicine 03/06/24 documented as of this encounter
--- OUTSIDE RECORDS SUMMARY | 2024-03-30 15:56 | XMS_ITS | Continuity of Care Document ---
Author Organization [facility] [address], [address] [place] [address]- Care Team Providers Care Center Hole Reamer Name Role Phone Anthony Leslie Primary Care Physician Encounter [facility] Date(s): 02/24/24 - 03/25/[address] [place], [place] [address] Attending Physician: Chanel Whitmore Admitting Physician: Chanel Whitmore Referring Physician: Chanel Whitmore Encounter Type: Triage Allergies, Adverse Reactions, Alerts Substance Criticality Severity [...] 1:45:00 PM EDT, Route to Pharmacy Electronically, [facility]/pharmacy #[id number], 172, cm, 08/08/22 4:51:00 EDT, [...] COPD without exacerbation Confirmed Active CAD in [place] artery Confirmed Active History of prediabetes Confirmed Active Social History Social History Type Response Smoking Status Former smoker, quit more than 30 days ago entered on: 12/07/22 Sex Sex Representation Male (finding) Patient Care team information Care Team Personnel Name: Juanis Alexis RN Position: [facility] RN Supv Member Role: Primary Care Nurse Name: Isabela Galvez RN Position: [facility] SN RN Member Role: Primary Care Nurse Name: Christina Napier RN Position: [facility] ED RN W/OE and Tasks Member Role: Primary Care Nurse Name: Wesly Guerrero RN Position: [facility] RN Member Role: Primary Care Nurse Name: Camila Justin RN Position: [facility] SN RN Member Role: Primary Care Nurse Name: Nolberto Maynard RN Position: [facility] RN Member Role: Primary Care Nurse Name: Mili Sandoval RN Position: [facility] SN RN Member Role: Primary Care Nurse Name: Chepe Judd RN Position: [facility] Oncrishabh RN Member Role: Primary Care Nurse Name: Shayy Willoughby RN Position: [facility] RN Member Role: Primary Care Nurse Name: Katina Vega RN Position: [facility] AMB Nurse Member Role: Primary Care Nurse Name: Anthony Leslie Position: Reference Physician Member Role: PCP Address: [address] [place] [address] [facility] [place], [place] [address] Telecom: Care Team Related Persons Name: JESUSITA MALAVE Name: WINTER MALAVE Insurance Providers Guarantor name: SOPHIA MALAVE Health Plan Information #: 1 Payer: [facility] [employer] Member Number: NA Policy Number: NA Group Number: NA
--- OUTSIDE RECORDS SUMMARY | 2024-03-30 15:56 | XMS_ITS | Encounter Summary ---
Author Name [facility] [place] Organization [facility] [place] Address [address] [place] [id number] Care Team Providers Care Division Road Supervisor Name Role Phone DENVER POP Primary Care Provide r Unavailable Insurance Providers: All historical and current Section [...] Name Patient's Relationship to Policy Aguero [facility] ([facility]) MEDICARE ADVANTAGE [facility] ([facility]) Mar 07, 2011 [id number] P[address]LO MALAVE PATIENT Selected Encounter This section includes the information on record at [place] for the Encounter. Date/Time Encounter Type Encounter Description Reason Provider Source Mar 15, 2024 11:00 AM OFFICE O/P EST HI 40 MIN PRIMARY CARE/MEDICINE ICD-10-CM J44.9 Chronic obstructive pulmonary disease, unspecified ANGY CABRERA Encounter Template Text not used by [place] Assessments - Encounter Diagnoses This section includes the primary and secondary diagnoses documented for the Encounter. 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 This section includes future appointments and future orders which are active, pending or scheduled. Future Appointments This section includes appointments that were scheduled to occur 6 months from the date of the Encounter, up to a maximum of 20 appointments. The data comes from all [place] treatment facilities. Appointment Date/Time Appointment Type Appointme nt Facility Name May 08, 2024 02:00 PM AMBULATORY - MEDICINE [facility] Vital Signs: All taken on the encounter date This section contains inpatient and outpatient Vital Signs collected on the date of the Encounter. Date/Time Temperature Pulse Blood Pressure Respiratory Rate SP02 Pain Height Weight Body Mass Index Source Mar 15, 2024 11:27 AM 173 27 [place] Mar 15, 2024 11:20 AM 98 68 134/68 20 94 67 [facility] Social History: Smoking Status (Most current) and Tobacco Use (All prior to encounter date) This section includes the most current, and the historical, smoking and tobacco- related health factors from the [place] facility where the Encounter took place. Current Smoking Status This section includes the most current smoking, or tobacco-related health factor, from the [place] facility where the Encounter took place. Date/Time Current Smoking Status Comment Arnoldo ity Mar 15, 2024 11:00 AM VA-TOBACCO USE FORMER CIGARETTES [place] Tobacco Use History This section includes a history of the smoking, or tobacco-related health factors, that were collected on or before the date of the Encounter. The data comes from the [place] facility where the Encounter took place. Date/Time Smoking Status/Tobacco Use Comment F acility Mar 15, 2024 11:00 AM IN-TOBACCO USE FORMER CIGARETTES [place] Advance Directives: All historical and current Section Date Range: From patient's date of to the date document was created. This section includes ALL of a patient's completed or amended VA Advance and Rescinded Directives. The entries below indicate that a directive exists for the patient, but an actual copy is not included with this document. The data comes from all [place] facilities. Date Advance Directives Provider Source Mar 15, 2024 ADVANCE DIRECTIVE CHET CASILLASJUSTIN Isabel Encounter Notes: All associated encounter notes This section contains the clinical notes associated to the Encounter. Date/Time Encounter Note(s) Provider Source Mar 21, 2024 10:33 AM ADDENDUM: LOCAL TITLE: Addendum STANDARD TITLE: ADDENDUM DATE OF NOTE: MAR 21, 2024@10:33:13 ENTRY DATE: MAR 21, 2024@10:33:14 AUTHOR: JONO LEE EXP COSIGNER: URGENCY: STATUS: COMPLETED Please reassign to [facility] ([place]) and establish an appointment within the next 30-45 days. Thank you. /vicki/ JONO LEE NP NURSE PRACTITIONER Signed: 03/21/2024 10:33 Receipt Acknowledged By: * AWAITING SIGNATURE * HARMONY NAZARIO 03/21/2024 15:03 /vicki/ HARMONY HALL AMSA --- Original Document --- 03/15/24 PA NOTE: S - 84 y/o M Allergy: NKAM [...] 1) Hypertension 2) C/V Stable - never NC - on Metoprol TART - on ASA, [...] 14) Hearing Loss, B/L - goes to [place]S: Reconciled - has list RTC early MAY 01 - sooner prn Fast Non-Fast Labs Few Days Before Next Visit Suicide Screen: C-SSRS Screening [place]-Suicide Severity Rating Scale (C-SSRS Screener) 1. Over [...] caregiver's preferred language for healthcare? Preferred Language: [place] PTSD Screening: PC-PTSD-5 A PTSD screening test [...] due to responses to other questions. 5. [place] numb or detached from people, activities, or your surroundings? Response not required due to responses to other questions. 6. [place] guilty or unable to stop blaming yourself [...] of active outpatient prescriptions dispensed from this [facility] (local) and dispensed from another VA or DoD facility (remote) as well as [...] etc.)? No incontinence. Toxic Exposure Screening: The [place]/caregiver was asked if they believe the experienced any toxic exposure(s), such as Airborne Hazards and Open Burn Pit, Parachute War related exposures, Agent Cottonwood, Radiation, contaminated water at [place] or other such exposures, while serving in the [employer] [place]. 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 The /caregiver was informed that we will continue to [...] required due to responses to other questions. /mirlande CABRERA PA-C STAFF PHYSICIAN DIRECTOR ENVIRONMENTAL Signed: 03/15/2024 12:16 03/15/2024 ADDENDUM STATUS: COMPLETED [...] alert device is delivered to [facility] from [facility] /mirlande CABRERA PA-C STAFF PHYSICIAN DIRECTOR ENVIRONMENTAL Signed: 03/15/2024 12:19 Receipt Acknowledged By: 03/21/2024 10:32 /mirlande LEE NP NURSE PRACTITIONER 03/15/2024 ADDENDUM STATUS: COMPLETED correction: some baseline wheeze on auscultation lungs /mirlande CABRERA PA-C STAFF PHYSICIAN DIRECTOR ENVIRONMENTAL Signed: 03/15/2024 12:23 JONO LEE Mar 15, 2024 12:16 PM ADDENDUM: LOCAL TITLE: Addendum STANDARD TITLE: ADDENDUM DATE OF NOTE: MAR 15, 2024@12:16:17 ENTRY DATE: MAR 15, 2024@12:16:18 AUTHOR: ANGY CABRERA COSIGNER: URGENCY: STATUS: COMPLETED new patient seen by mendez i see no permanent team assigned in advance of today's visit patient will have acute needs in early may 01 please assign to permanent pact team no later than first week april patient will also need nursing appt with permanent team for training when his med alert device is delivered to [facility] from [place] CABRERA PA-C STAFF PHYSICIAN DIRECTOR ENVIRONMENTAL Signed: 03/15/2024 12:19 Receipt Acknowledged By: 03/21/2024 10:32 /mirlande LEE NP NURSE PRACTITIONER --- Original Document --- 03/15/24 PA NOTE: S - 84 y/o M Allergy: NKAM [...] lesions or rashes FH: non-contributory Mil Hx: [employer] 1958 - 1962 MOS - [employer] - [place] - never TBI - no [place]: [...] 1) Hypertension 2) C/V Stable - never NC - on Metoprol TART - on ASA, [...] 14) Hearing Loss, B/L - goes to [facility]: Reconciled - has list RTC early MAY 01 - sooner prn Fast Non-Fast Labs Few Days Before Next Visit Suicide Screen: C-SSRS Screening [place]-Suicide Severity Rating Scale (C-SSRS Screener) 1. Over [...] caregiver's preferred language for healthcare? Preferred Language: [place] PTSD Screening: PC-PTSD-5 A PTSD screening test [...] due to responses to other questions. 5. [place] numb or detached from people, activities, or your surroundings? Response not required due to responses to other questions. 6. [place] guilty or unable to stop blaming yourself [...] of active outpatient prescriptions dispensed from this [place] (local) and dispensed from another [place] or DoD facility (remote) as well as [...] etc.)? No incontinence. Toxic Exposure Screening: The [place]/caregiver was asked if they believe the experienced any toxic exposure(s), such as Airborne Hazards and Open Burn Pit, Parachute War related exposures, Agent Cotton[place], Radiation, contaminated water at [place] or other such exposures, while serving in the Armed Forces. 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 The [place]/caregiver was informed that we will continue to [...] questions. /vicki/ ANGY CABRERA PA-C STAFF PHYSICIAN DIRECTOR ENVIRONMENTAL Signed: 03/15/2024 12:16 03/15/2024 ADDENDUM STATUS: COMPLETED correction: some baseline wheeze on auscultation lungs /vicki/ ANGY CABRERA PA-C STAFF PHYSICIAN DIRECTOR ENVIRONMENTAL Signed: 03/15/2024 12:23 ANGY CABRERA Mar 15, 2024 11:28 AM PREVENTIVE MEDICIN E NURSING NOTE: LOCAL TITLE: CLINICAL REMINDERS/NURSING STANDARD TITLE: PREVENTIVE MEDICINE NURSING NOTE DATE OF NOTE: MAR 15, 2024@11:28 ENTRY DATE: MAR 15, 2024@11:28:44 AUTHOR: DAVID WINN COSIGNER: URGENCY: STATUS: COMPLETED COVID-19 Immunization: Vaccine given previously - no written/electronic documentation available The patient was instructed to bring a copy of their COVID-19 vaccine information to their next appointment so that this can be accurately recorded in their [place] medical record. Tdap Immunization: The patient may [...] PRACTICAL NURSE Signed: 03/15/2024 11:32 DAVID WINN [place] Mar 15, 2024 11:04 AM PHYSICIAN KATHERIN Kinney NOTE: LOCAL TITLE: PA NOTE STANDARD TITLE: PHYSICIAN DIRECTOR ENVIRONMENTAL NOTE DATE OF NOTE: MAR 15, 2024@11:04 ENTRY DATE: MAR 15, 2024@11:04:55 AUTHOR: ANGY CABRERA EXP COSIGNER: URGENCY: STATUS: COMPLETED LUC NOTE Has ADDENDA S - 84 y/o [...] lesions or rashes FH: non-contributory Mil Hx: [employer] 1958 - 1962 MOS - [employer] - [place] W[place] - never TBI - no [place]: [...] 1) Hypertension 2) C/V Stable - never NC - on Metoprol TART - on ASA, [...] 14) Hearing Loss, B/L - goes to [facility] MEDS: Reconciled - has list RTC early MAY 01 - sooner prn Fast Non-Fast Labs Few Days Before Next Visit Suicide Screen: C-SSRS Screening [place]-Suicide Severity Rating Scale (C-SSRS Screener) 1. Over [...] Not worried about housing near future The [place] reports the following: Within the past 12 months, you worried whether your food would run out before you got money to buy more. Never true Within the past 12 months, the food you bought just didn't last and you didn't have money to get more. Never true Preferred Language: What is your, or your caregiver's preferred language for healthcare? Preferred Language: [place] PTSD Screening: PC-PTSD-5 A PTSD screening test [...] due to responses to other questions. 5. [place] numb or detached from people, activities, or your surroundings? Response not required due to responses to other questions. 6. [place] guilty or unable to stop blaming yourself [...] of active outpatient prescriptions dispensed from this [facility] (local) and dispensed from another [place] or DoD facility (remote) as well as [...] etc.)? No incontinence. Toxic Exposure Screening: The [place]/caregiver was asked if they believe the [place] experienced any toxic exposure(s), such as Airborne Hazards and Open Burn Pit, Parachute War related exposures, Agent [place], Radiation, contaminated water at [place] or other such exposures, while serving in the [employer] [place]. has no concerns about toxic exposure(s) while serving in the [employer] [place]. The /caregiver was informed that we will continue to [...] questions. /vicki/ ANGY CABRERA PA-C STAFF PHYSICIAN DIRECTOR ENVIRONMENTAL Signed: 03/15/2024 12:16 03/15/2024 ADDENDUM STATUS: COMPLETED new patient seen by mendez i see no permanent team assigned in advance of today's visit patient will have acute needs in early may 01 please assign to permanent pact team no later than first week april patient will also need nursing appt with permanent team for training when his med alert device is delivered to [facility] from [place] /vicki/ ANGY CABRERA PA-C STAFF PHYSICIAN DIRECTOR ENVIRONMENTAL Signed: 03/15/2024 12:19 Receipt Acknowledged By: 03/21/2024 10:32 /vicki/ JONO LEE NP NURSE PRACTITIONER 03/15/2024 ADDENDUM STATUS: COMPLETED correction: some baseline wheeze on auscultation lungs /vicki/ ANGY CABRERA PA-C STAFF PHYSICIAN DIRECTOR ENVIRONMENTAL Signed: 03/15/2024 12:23 03/21/2024 ADDENDUM STATUS: COMPLETED Please reassign to [facility] ([place]) and establish an appointment within the next 30-45 days. Thank you. /vicki/ JONO LEE NP NURSE PRACTITIONER Signed: 03/21/2024 10:33 Receipt Acknowledged By: * AWAITING SIGNATURE * HARMONY NAZARIO * AWAITING SIGNATURE * HARMONY HALL [place]
--- OUTSIDE RECORDS SUMMARY | 2024-03-30 15:56 | XMS_ITS | Encounter Summary ---
Author Organization [facility] Address [address] [place] [address] Care Team Providers Care Crocodile Farmer Name Role Phone Anthony rS Primary Care Provider [phone] Reason for Referral * Imaging (Routine) - Closed Specialty Diagnoses / Procedures Referred By Brisa hudson Referred To Contact Radiology Diagnoses New persistent daily headache Procedures MR Brain wo Contrast Jennie Lanza PA [address] [place] [address] [facility] [address] [place] [address] Referral ID Status Reason Start Date Expiration Date Visits Re quested Visits Authorized [id number] Closed 03/06/2024 05/07/2024 1 1 Reason for Visit * Reason Comments Headache Encounter Details Date Type Department Care Team ([facility] st Contact Info) Description 03/06/2024 2:30 PM EST Office Visit Adult Medicine [address] [phone] Jennie Lanza PA [address] [place] [address] New persistent daily headache (Primary Dx); History of subdural hematoma Social History Tobacco Use Types Packs/Day Years [...] Sign Reading Time Taken Comments Blood Pressure 115/60 03/06/2024 2:23 PM EST Pulse 95 03/06/2024 2:23 PM EST Temperature 36.5 ??C (97.7 ??F) 03/06/2024 2:23 PM ES T Respiratory Rate 16 03/06/2024 2:23 PM EST Oxygen Saturation - - Inhaled Oxygen Concentration - - Weight 84.3 kg (185 lb 12.8 oz) 03/06/2024 2:23 PM EST Height 170.2 cm (5' 7 ) 03/06/2024 2:23 PM EST Body Mass Index 29.1 03/06/2024 2:23 PM EST documented in this encounter Progress Notes * LUC Hale - 03/06/2024 2:30 PM EST CHIEF COMPLAINT: Headache IDENTIFIER: Timothy Cagle is a 84 y.o. old male. HPI: Patient is an 84-year-old male who presents to the office today complaining of right-sided headachex 1 month. The headache starts at the base of the neck and radiates into the right side of the head, onto the top of the head. He notices the headache when he turns to the right side. He rates the headache as a 3 out of 10 right now, states that it could get as bad as a 7-8/10. He was hospitalized 2 months ago for fall, dizziness, subdural hematoma. At his follow- up appointment on 01/06/2024 he was complaining of some headaches. Patient reports that these headaches feel little different. He denies any recent head injuries, falls. The headaches are occurring almost daily. He denies any other symptoms such as vision changes. He does have chronic floaters and follows ophthalmology for this. He has been taking Tylenol which helps. ROS: GENERAL: No malaise, significant weight loss or fever HEENT: No changes in hearing or vision RESPIRATORY: No cough, wheezing or shortness of breath CARDIOVASCULAR: No chest pain, leg swelling or palpitations GI: No abdominal discomfort, blood in stools or black stools NEURO: +headache, no syncope, seizures, weakness or numbness PAST MEDICAL HISTORY: Patient Active Problem List Diagnosis Date Noted COPD without exacerbation ([facility]) 01/17/2024 Headache 11/28/2023 AAA (abdominal aortic aneurysm) ([facility]) 07/15/2023 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 11/02/2022 Orthostatic hypotension 10/11/2022 Paroxysmal supraventricular tachycardia ([facility] [place] 10/11/2022 Primary hypertension 04/07/2022 Bronchiectasis without complication ([facility] [place] 08/17/2021 Mild cognitive impairment 05/11/2021 Benign prostatic [...] Procedure Laterality Date CARPAL TUNNEL RELEASE PROCEDURE: CO NEUROPLASTY &/TRANSPOS MEDIAN NRV CARPAL TUNNE; COMMENT: bilat 2009 CATARACT EXTRACTION PROCEDURE: HISTORICAL CATARACT REMOVAL; COMMENT: 2012 CHOLECYSTECTOMY 2019 PROCEDURE: HISTORICAL CHOLECYSTECTOMY; COMMENT: [facility] OTHER SURGICAL HISTORY 12/21/2006 PROCEDURE: COLON CA SCRN NOT HI RSK IND; COMMENT: Neg/diverticulosis. OTHER SURGICAL HISTORY PROCEDURE: CO PNXR ASPIR HYDROCELE TUNICA VAGIS W/WO NJX MED; COMMENT: 2006 OTHER SURGICAL HISTORY PROCEDURE: HISTORY OTHER; COMMENT: upper esophageal sphincterotomy complicated by intest perf OTHER SURGICAL HISTORY 06/16/2021 PROCEDURE: CO BRONCHOSCOPY BRONCHIAL/ENDOBRNCL BX 1+ SITES; COMMENT: Dr. [...] Other (Other: Rheumatic fever) Mother MEDICATIONS DISCONTINUED/REORDERED: Medications Discontinued During This Encounter Medication Reason predniSONE (DELTASONE) 20 mg tablet Therapy completed ACTIVE MEDICATIONS: Outpatient Medications Marked as Taking for the 03/06/24 encounter (Office Visit) with LUC Hale Medication [...] 1 (one) time each day. atorvastatin (LIPITOR) 40 mg tablet TAKE 1 TABLET BY MOUTH EVERY DAY 90 tablet 1 celecoxib (CeleBREX) 200 mg capsule Take 1 [...] by mouth 2 (two) times a day. tamsulosin (FLOMAX) 0.4 mg 24 hr capsule Take 2 capsules (0.8 mg total) by mouth 1 (one) time each day. traMADoL (ULTRAM) 50 mg tablet Take 1 tablet (50 mg total) by mouth. ALLERGIES: Allergies Allergen Reactions Oxycodone-Acetaminophen PHYSICAL EXAM: Blood pressure 115/60, pulse 95, temperature 36.5 ??C (97.7 ??F), temperature source Temporal, resp. rate 16, height 1.702 m (67 ), weight 84.3 kg (185 lb 12.8 oz). Body mass index is 29.1 kg/m??. BMI is greater than 25.0 (above [...] extremities. Reflexes intact. Cerebellar function intact with [id number]-mvew and rapid alternating movements. Rombergnegative. LABS: Component Latest Ref Rng & Units 12/09/2023 11:36 AM GLUCOSE, PLASMA 70 - 100 [...] Alk Phos 42 - 121 U/L 111 IMAGING: CT Brain WO - 12/24/23 Comparison: None Findings: Left convexity subdural hematoma measuring up to 5 mm in thickness. The hematoma is heterogeneous in attenuation with increased attenuation/acute hemorrhage seen posteriorly. No hydrocephalus, mass-effect or herniation. Heard-white differentiation is maintained. White matter is within normal limits for age. No acute orbital pathology. No acute soft tissue abnormality. No fracture. The visualized paranasal sinuses are predominantly clear. The mastoid air cells are clear. Impression: Left convexity subdural hematoma measuring up to 5 mm in thickness which is heterogeneous in attenuation with acute hemorrhage. No mass effect. CT Cervical Spine - 12/24/23 Comparison: None Findings: Mild multilevel anterolisthesis, degenerative. No fracture. Multilevel degenerative change is most prominent at C3/C4 and C5/C6 with moderate to severe central spinal canal stenosis. No epidural hematoma. Normal thickness of the prevertebral soft tissues. The lung apices are clear. Impression: No acute findings. CT Brain - 11/29/23 NDICATION: Hemorrhage, headache TECHNIQUE: CT of the head without intravenous contrast. Multiplanar reformats. The examination was performed utilizing dose reduction techniques. Total DLP 1070.3 COMPARISON: No priors available. FINDINGS: No acute territorial infarct, mass effect, or intracranial hemorrhage. Mild scattered periventricular and subcortical white matter hypodensities are most likely related to chronic small vessel ischemic change. Diffuse cerebral volume loss with prominence of the ventricles and CSF spaces. No hydrocephalus. Visualized paranasal sinuses and mastoid air cells are clear. No scalp hematoma or skull fracture. Bilateral lens implants. IMPRESSION: No acute intracranial abnormality. IMPRESSION/PLAN: 1. New persistent daily headache MR Brain wo Contrast 2. History of subdural hematoma Medication and lab orders: Orders Placed This Encounter Procedures MR Brain wo Contrast Other orders: MR BRAIN WO CONTRAST 1/2. New right-sided headache x 1 month. The headache starts at the base of the neck and radiates into the right side of the head, onto the top of the head. He was hospitalized 2 months ago for fall,dizziness, subdural hematoma. He did have follow-up imaging which did reveal improvement of the subdural hematoma per hospital f/u notes. At his follow-up appointment on 01/06/2024 he was complaining of some headaches but deferred imaging. Patient reports that these headaches feel a little different. He denies any recent head injuries, falls. The headaches are occurring almost daily. Discussed with PCP. Will order brain MRI for further evaluation and management. Continue Tylenol as needed which has been helping. I have spent 43 minutes during this encounter including preparing to see the patient, reviewing notes, previous imaging, performing a medically appropriate examination, extensive counseling/education, and documenting clinical information in the electronic health record. None of this time was spent on separate billable services or procedures. Advised the patient to call me if any problems. Patient understands the plan. Patient is in agreement with the plan. Today's documentation was made using voice recognition software.This note may contain grammatical errors secondary to this software. Jennie Lanza PA-C documented in this encounter Plan of Treatment Upcoming Encounters Date Type Department Care Team (Late st Contact Info) Description 04/18/2024 7:30 AM EST Hospital Encounter [address] [phone] Lobo Starr MD [address] [place] [id number] 04/18/2024 7:30 AM EST - 04/18/2024 10:30 AM EST Surgery [address] [id number] Lobo Starr MD [address] [place] [id number] L2-3 LUMBAR LAMINECTOMY & DECOMPRESSION [02178 (CPT??) +1 more] 05/01/2024 3:30 PM EST Office Visit Adult Medicine [facility] [address] [place] [phone] Anthony Sr PA [address] [place] [phone] 05/25/2024 2:00 PM EDT Consult Vascular Surgery - [place] [address] [place] [address] Willam Dumont MD [address] [place] [address] 06/12/2024 10:45 AM EDT Office Visit Adult Medicine [facility] [address] [place] [address] Anthony Sr PA [address] [place] [address] Scheduled Procedures Name Priority Associated Diagnoses Date/Ti me DECOMPRESSION LUMBAR Spinal stenosis, lumbar region with neurogenic claudication 04/18/2024 7:30 AM EST documented as of this encounter Results * MR Brain wo [...] a mass or mass effect. POS - [id number] -------- FINAL REPORT -------- Dictated By: Gladys Barragan Dictated Date: 03/09/2024 17:08 ET Assigned Physician: Gladys Barragan Reviewed and Electronically Signed By: Gladys Barragan Signed Date: 03/10/2024 11:16 ET Workstation ID: [id number] Transcribed By: Self Edit Transcribed Date: 03/09/2024 [...] a mass or mass effect. POS - [id number] -------- FINAL REPORT -------- Dictated By: Gladys Barragan Dictated Date: 03/09/2024 17:08 ET Assigned Physician: Gladys Barragan Reviewed and Electronically Signed By: Gladys Barragan Signed Date: 03/10/2024 11:16 ET Workstation ID: [id number] Transcribed By: Self Edit Transcribed Date: 03/09/2024 17:40 ET Jennie Pool [facility] PROCEDURES documented in this encounter Visit Diagnoses Diagnosis New persistent daily headache- Primary New daily persistent headache History of subdural hematoma New persistent daily headache New daily persistent headache Spinal stenosis, lumbar region with neurogenic claudication documented in this encounter Discontinued Medications Medication Sig Discontinue Reason Start Date End Da te predniSONE (DELTASONE) 20 mg tablet Take 3 tabs on the first 3 days, take 2 tabs on the next 3 days, take 1 tab on the next 3 days, then stop. Therapy completed 01/06/2024 03/06/2024 documented as of this encounter Care Teams Crocodile Farmer Relationship Specialty Start Date End Date Anthony Sr PA [address] [place] [address] PCP - General Internal Medicine 03/06/24 documented as of this encounter
--- OUTSIDE RECORDS SUMMARY | 2024-03-30 15:57 | XMS_ITS | Data Portability ---
Author Organization [facility], PAIN OFFICE Address [address] [place] [address] Care Team Providers Care Switchboard Troubleshooter Name Role Phone ARTURO HAMPTON Referring Provider [phone] LINUS DUMONT Primary Care Provider Assessment Encounter Date Assessment Date Assessment LastModified by Organization Details LastModified Time 09/01/2022 09/01/2022 Timothy Cagle is a 81? ? ?year old man with left sided low back pain . On exam ,he has pain on flexion. Facet loading is positive on the left. 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 He is here for a left lumbar facet joint steroid injections under fluoroscopic guidance . The risks and benefits of the procedure? ? ? were discussed in detail. He wishes to proceed He needs to follow up in six to eight weeks. [email or web address] Not available 09/01/2022 16:13:10 09/30/2022 09/30/2022 Timothy Cagle is a 82? ? ?year old man with left sided low back pain . On exam ,he has pain on flexion. 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 Repeat left Lumbar facet joint steroid injections under fluoroscopic guidance was recommended. The risks and benefits of the procedure? ? ? were discussed in detail. He wishes to proceed. An appointment has been booked for the same. 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 [email or web address] Not available 09/30/2022 10:02:16 02/08/2023 02/08/2023 Timothy Cagle is a 83? ? ?year old man with right sided low back pain . On exam ,he has pain on flexion. Facet loading is positive on the right. 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 He is here for a right lumbar facet joint steroid injections under fluoroscopic guidance . The risks and benefits of the procedure? ? ? were discussed in detail. He wishes to proceed. He will follow up as needed. [email or web address] Not available 02/08/2023 16:47:47 06/15/2023 06/15/2023 Timothy Cagle is a 83? ? ?year old man with right sided low back pain . On exam ,he has pain on flexion. Facet loading is positive on the right. 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 He is here for a right lumbar facet joint steroid injections under fluoroscopic guidance . The risks and benefits of the procedure? ? ? were discussed in detail. He wishes to proceed. He will follow up as needed. [email or web address] Not available 06/15/2023 11:32:47 09/28/2023 09/28/2023 Timothy Cagle is a 83? ? ?year old man with right sided low back pain . On exam ,he has pain on flexion. Facet loading is positive on the right. 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 He is here for a right lumbar facet joint steroid injection under fluoroscopic guidance . The risks and benefits of the procedure? ? ? were discussed in detail. He wishes to proceed. He will follow up as needed. [email or web address] Not available 09/28/2023 11:37:49 Plan of Treatment Reminders Order Date Submit Date Provider Last Modified By Organization Details Last Modified Time Details Appointments None record ed. Lab None record ed. Referral None record ed. Procedures None record ed. Surgeries None record ed. Imaging None record ed. Medication Orders None record ed. Patient TargetsNo targets recorded. Patient Instructions Encounter Date Encounter Id Patient Instructions Last Modified By Organization Details Last Modified Time 09/01/2022 [id number] He was advised against bed rest lasting longer than four days and to continue activities as tolerated. [email or web address] Not available 09/01/2022 16:12:28 09/30/2022 [id number] He was advised against bed rest lasting longer than four days and to continue activities as tolerated. [email or web address] Not available 09/30/2022 09:58:52 02/08/2023 [id number] He was advised against bed rest lasting longer than four days and to continue activities as tolerated. [email or web address] Not available 02/08/2023 16:46:21 06/15/2023 [id number] He was advised against bed rest lasting longer than four days and to continue activities as tolerated. [email or web address] Not available 06/15/2023 11:32:48 09/28/2023 [id number] He was advised against bed rest lasting longer than four days and to continue activities as tolerated. [email or web address] Not available 09/28/2023 11:35:26 Reason for Referral None Reported. Problems Name Problem SNOMED Code Status Onset Date Resolution Date Notes Provider Name and Address Organization Details Recorded Time Lumbar radiculitis 4358523610179 9104 Active Nichole mclean MD [address] , [address], [place], [address], [place] [facility] 15:37:22 Degeneratio n of lumbar interverteb ral disc 15161797 Active Nichole mclean MD [address] , [address], [place], [address], [place] [facility] 15:37:30 Problem Notes None recorded. Procedures Surgical History Date Name Laterality Status Provider Name and Address Organization Details Recorded Time 09/28/19 24 Fluoroscopic Guided Lumbar Facet Steroid Injections of levels completed Nichole Cerna MD [address] , [address], [place], [address], [place] [facility] 09/28/2023 11:37:08 06/15/19 24 Fluoroscopic Guided Lumbar Facet Steroid Injections of levels completed Nichole Cerna MD [address] , [address], [place], [address], [place] [facility] 06/15/2023 11:33:42 02/09/20 23 Fluoroscopic Guided Lumbar Facet Steroid Injections of levels completed Nichole Cerna MD [address] , [address], [place], [address], [place] [facility] 02/08/2023 16:47:08 09/02/19 23 Fluoroscopic Guided Lumbar Facet Steroid Injections of levels completed Nichole Cerna MD [address] , [address], [place], [address], [place] [facility] 09/01/2022 16:11:54 05/26/19 23 Lumbar Epidural steroid injection under fluoroscopic guidance completed Nichole Cerna MD [address] , [address], [place], [address], [place] [facility] 05/25/2022 11:04:59 01/27/20 22 Lumbar Epidural steroid injection under fluoroscopic guidance completed Nichole Cerna MD [address] , [address], [place], [address], [place] [facility] 01/26/2022 13:53:06 10/21/19 22 Radiofrequency of Lumbar/Sacral medial branches supplying the facets under fluoroscopic guidance completed Nichole Cerna MD [address] , [address], [place], [address], [place] [facility] 10/20/2021 16:18:57 06/18/19 22 Lumbar median branch block under fluroscopic guidance completed Nichole Cerna MD [address] , [address], [place], [address], [place] [facility] 06/17/2021 11:18:04 05/20/19 22 Lumbar median branch block under fluroscopic guidance completed Nichole Cerna MD [address] , [address], [place], [address], [place] [facility] 05/19/2021 15:54:55 02/19/20 21 Fluoroscopic Guided Lumbar Facet Steroid Injections of levels completed Nichole Cerna MD [address] , [address], [place], [address], [place] [facility] 02/18/2021 10:51:12 11/27/19 21 Fluoroscopic Guided Lumbar Facet Steroid Injections of levels completed Nichole Cerna MD [address] , [address], [place], [address], [place] [facility] 11/27/2020 08:27:20 08/28/19 21 Fluoroscopic Guided Lumbar Facet Steroid Injections of levels completed Nichole Cerna MD [address] [facility] , [address], [place], [address], [facility] - [facility] 08/27/2020 14:21:55 06/11/19 21 Lumbar Epidural steroid injection under fluoroscopic guidance completed Nichole Cerna MD [address] , [address], [place], [address], [facility] - [facility] 06/11/2020 16:24:02 total knee replacement completed Nichole Cerna MD [address] , [address], [place], [address], [facility] - [facility] 05/22/2020 15:43:26 Cholecystectomy completed Nichole Cerna MD [address] , [address], [place], [address], [facility] - [facility] Management 05/22/2020 15:43:35 lithotripsy completed Nichole Cerna MD [address] , [address], [place], [address], [facility] - [facility] 05/22/2020 15:43:44 Imaging Results None recorded. Procedure Notes None recorded. Medical Equipment None Reported. Allergies Allergen ID Allergen Name Allergen Category Reaction Reaction Severity Criticality Documentation Date Start Date Code Code System Note Provider Name and Address Organization Details Recorded Time 16618 acetamino phen / oxycodone medicatio n itching Not available Not available 05/22/2020 13125 3 RxNorm sweat ing and hives Guerda mtz, [place] - [facility] 14:34:17 Medications Name Sig Start Date Stop Date Status Note LastModified by Organization Details LastModified Time celecoxib 200 mg capsule active Not Available Not Available Not Available atorvastat in 40 mg tablet TAKE 1 TABLET BY MOUTH EVERY DAY active Not Available Not Available No t Available prednisone 10 mg tablet PLEASE SEE ATTACHED FOR DETAILED DIRECTIO NS 07/30 completed Not Available Not Available Not Available doxycyclin e hyclate 100 mg capsule TAKE 1 CAPSULE BY MOUTH TWICE A DAY FOR 5 DAYS 05/24 completed Not Available Not Available Not Available ipratropiu m 0.5 mg-albuter ol 3 mg (2.5 mg base)/3 mL nebulizati on soln USE 1 VIAL VIA NEBULIZE R 4 TIMES A DAY active Not Available Not Available No t Available clindamyci n HCl 300 mg capsule TAKE 2 CAPSULES BY MOUTH 1 HOUR PRIOR TO DENTAL APPT active Not Available Not Available No t Available albuterol sulfate 2.5 mg/3 mL (0.083 %) solution for nebulizati on USE 1 VIAL VIA NEBULIZE R TWICE A DAY active Not Available Not Available No t Available cefpodoxim e 200 mg tablet TAKE 1 TABLET ORALLY 2 TIMES A DAY MUST ADMINIST ER WITH A MEAL/BASHIR D 05/24 completed Not Available Not Available Not Available azithromyc in 250 mg tablet TAKE 1 TABLET ON TUESDAY/ /05/24 completed Not Available Not Available Not Available ofloxacin 0.3 % eye drops INSTILL 1 DROP TO THE LEFT EYE 4 TIMES A DAY 3 DAYS PRIOR TO SURGERY CONTINUE AFTER SURGERY 02/18 completed Not Available Not Available Not Available benzonatat e 200 mg capsule 06/17 completed Not Available Not Available Not Available valacyclov ir 1 gram tablet TAKE 1 TABLET BY MOUTH 3 TIMES A DAY FOR 7 DAYS 05/22 completed Not Available Not Available Not Available clotrimazo le-betamet hasone 1 %-0.05 % lotion APPLY TO AFFECTED AREA TWICE A DAY FOR 10 DAYS active Not Available Not Available No t Available minocyclin e 100 mg capsule TAKE ONE TABLET TWICE A DAY, AM AND PM, WITH FOOD. AVOID LAYING DOWN AFTER TAKING FOR AN HOUR. 02/08 completed Not Available Not Available Not Available ondansetro n HCl 4 mg tablet TAKE 1 TABLET BY MOUTH EVERY 8 HOURS NEEDED NAUSEA 05/22 completed Not Available Not Available Not Available prednisone 20 mg tablet TAKE 2 TABLETS BY MOUTH DAILY 05/24 completed Not Available Not Available Not Available sertraline 100 mg tablet active Not Available Not Available Not Available metronidaz ole 250 mg tablet TAKE 1 TABLET BY MOUTH EVERY 8 HOURS FOR 4 DAYS 05/22 completed Not Available Not Available Not Available moxifloxac in 400 mg tablet TAKE 1 TABLET BY MOUTH EVERY DAY FOR 5 DAYS 09/30 completed Not Available Not Available Not Available clobetasol 0.05 % topical cream APPLY TO AFFECTED AREA TWICE A DAY FOR 14 DAYS active Not Available Not Available No t Available sulfametho xazole 800 mg-trimeth oprim 160 mg tablet TAKE ONE TABLET TWICE A DAY WITH MEALS AND A GLASS OF WATER X 7 DAYS 09/27 completed Not Available Not Available Not Available omeprazole 40 mg capsule,de layed release TAKE 1 CAPSULE BY MOUTH EVERY DAY FOR 14 DAYS THEN DECREASE DOSE 06/14 completed Not Available Not Available Not Available doxycyclin e monohydrat e 100 mg tablet TAKE 1 TABLET BY MOUTH TWICE A DAY FOR 28 DAYS 09/01 completed Not Available Not Available Not Available terbinafin e HCl 250 mg tablet TAKE 1 TABLET BY MOUTH DAILY FOR 30 DAYS. 08/31 completed Not Available Not Available Not Available prednisolo ne acetate 1 % eye drops,susp ension INSTILL ONE DROP 4 TIMES A DAY INTO LEFT EYE AFTER SURGERY 02/18 completed Not Available Not Available Not Available tamsulosin 0.4 mg capsule active Not Available Not Available Not Available benzonatat e 100 mg capsule TAKE 1 CAPSULE ORALLY 2 TIMES A DAY NEEDED FOR COUGH FOR 30 DAYS active Not Available Not Available No t Available tacrolimus 0.1 % topical ointment APPLY TWICE DAILY TO RASH ON FACE 09/30 completed Not Available Not Available Not Available oseltamivi r 75 mg capsule 11/27 completed For the flu Not Available Not Available Not Available ursodiol 300 mg capsule TAKE 1 CAPSULE BY MOUTH TWICE A DAY active Not Available Not Available No t Available polymyxin B sulfate 10,000 unit-trime thoprim 1 mg/mL eye drops APPLY 2 DROPS INTO AFFECTED EYE(S) 4 TIMES PER DAY FOR 7 DAYS active Not Available Not Available No t Available methimazol e 5 mg tablet TAKE 1 TABLET BY MOUTH MONDAYS- SUNDAYS ONLY active Not Available Not Available No t Available omeprazole 20 mg capsule,de layed release TAKE 1 CAPSULE BY MOUTH TWICE A DAY active Not Available Not Available No t Available budesonide 0.5 mg/2 mL suspension for nebulizati on INHALE 1 VIAL VIA NEBULIZE R TWICE A DAY active Not Available Not Available No t Available codeine 10 mg-guaifen esin 100 mg/5 mL oral liquid TAKE 5 ML BY MOUTH 3 TIMES DAILY NEEDED FOR COUGH FOR UP TO 10 DAYS. 05/26 /2023 completed Not Available Not Available Not Available mupirocin 2 % topical ointment APPLY TOPICALL Y TO SURGICAL SITE TWICE DAILY X 7-14 DAYS 09/30 completed Not Available Not Available Not Available furosemide 20 mg tablet TAKE 1 TABLET BY MOUTH DAILY NEEDED FOR LEG SWELLING active Not Available Not Available No t Available metoprolol succinate ER 25 mg tablet,ext ended release 24 hr TAKE 1/2 TABLET BY MOUTH EVERY DAY active Not Available Not Available No t Available lorazepam 1 mg tablet ONE BY MOUTH BEFORE PROCEDUR E 06/17 completed Ativan Not Available Not Available Not Available levofloxac in 500 mg tablet TAKE 1 TABLET BY MOUTH DAILY 09/27 completed Not Available Not Available Not Available levofloxac in 750 mg tablet TAKE 1 TABLET BY MOUTH DAILY 05/24 completed Not Available Not Available Not Available ketoconazo le 2 % topical cream APPLY TO THE AFFECTED AREA ONCE DAILY X2 WEEKS 09/30 completed Not Available Not Available Not Available ondansetro n 4 mg disintegra ting tablet DISSOLVE 1 TABLET BY MOUTH EVERY 8 HOURS NEEDED FOR NAUSEA AND VOMITING FOR 3 DAYS active Not Available Not Available No t Available cefdinir 300 mg capsule TAKE 1 CAPSULE BY MOUTH TWICE A DAY 09/27 completed Not Available Not Available Not Available fluticason e propionate 50 mcg/actuat ion nasal spray,susp ension INHALE 2 SPRAYS INTO EACH NOSTRIL ONCE DAILY FOR 2 WEEKS active Not Available Not Available No t Available sertraline 50 mg tablet 06/17 completed Rogert. SSRI Not Available Not Available Not Available doxycyclin e hyclate 100 mg tablet TAKE 1 TABLET BY MOUTH TWICE A DAY FOR 7 DAYS 06/17 completed Not Available Not Available Not Available finasterid e 5 mg tablet TAKE 1 TABLET BY MOUTH EVERY DAY IN THE MORNING active Not Available Not Available No t Available oxycodone 5 mg tablet TAKE 1 TABLET EVERY 4 TO 6 HOURS NEEDED active Not Available Not Available No t Available azithromyc in 500 mg tablet TAKE 1 TABLET 3 TIMES A WEEK FOR 30 DAYS 07/30 completed Not Available Not Available Not Available metoprolol tartrate 25 mg tablet TAKE 1/2 TABLET BY MOUTH TWICE A DAY active Not Available Not Available No t Available Trelegy Ellipta 100 mcg-62.5 mcg-25 mcg powder for inhalation TAKE 1 PUFF BY MOUTH EVERY DAY active Not Available Not Available No t Available Vitals Date Recorded Body height Heart rate Oxygen saturation Oxygen saturation in Arterial blood by Pulse oximetry Systolic blood pressure Diastolic blood pressure Provider Name and Address Organization Details Last Updated DateTime 3 170.18 cm 63 /min 97 % 97 % 142 mm[Hg] 55 mm[Hg] Guerda Kamara [place] [facility] 3 09:33:55 Date Recorded Body height Heart rate Oxygen saturation Oxygen saturation in Arterial blood by Pulse oximetry Systolic blood pressure Diastolic blood pressure Provider Name and Address Organization Details Last Updated DateTime 3 170.18 cm 54 /min 96 % 96 % 163 mm[Hg] 52 mm[Hg] Mable De Souzazoila [place] - [facility] 3 09:32:11 Date Recorded Body height Heart rate Oxygen saturation Oxygen saturation in Arterial blood by Pulse oximetry Systolic blood pressure Diastolic blood pressure Provider Name and Address Organization Details Last Updated DateTime 3 170.18 cm 59 /min 97 % 97 % 129 mm[Hg] 72 mm[Hg] Abida Cunninghamjolene [place] - [facility] 3 10:39:46 Date Recorded Body height Heart rate Oxygen saturation Oxygen saturation in Arterial blood by Pulse oximetry Systolic blood pressure Diastolic blood pressure Provider Name and Address Organization Details Last Updated DateTime 4 170.18 cm 60 /min 95 % 95 % 142 mm[Hg] 52 mm[Hg] Mable Syed [place] - [facility] 4 11:09:13 Date Recorded Body height Heart rate Oxygen saturation Oxygen saturation in Arterial blood by Pulse oximetry Systolic blood pressure Diastolic blood pressure Provider Name and Address Organization Details Last Updated DateTime 4 170.18 cm 67 /min 96 % 96 % 144 mm[Hg] 93 mm[Hg] Mable Syed [place] - [facility] 4 11:03:39 Social History Question Answer Notes LastModified by Organizat ion Details LastModified Time Tobacco Smoking Status Former Smoker Guerda mtz [place] [facility] 05/22/2020 14:48:03 Do You Or Have You Ever Used E-cigarettes Or Vape? Never Used Electronic Cigarettes Information not available 05/22/2020 Do You Or Have You Ever Used Smokeless Tobacco? Never Used Smokeless Tobacco Information not available 05/22/2020 How Much Tobacco Do You Smoke? 1 PPD Information not available 05/22/2020 How Many Years Have You Smoked Tobacco? 40 Information not available 05/22/2020 Sex: Unknown Functional Status None recorded. Mental Status None recorded. Family History Relationship Description Onset Age of this Age Resolved Age Notes LastModified by Organization Details LastModified Time Father Cirrhosis of liver [email or web address] Not available 05/05 15:42:30 Mother Malignant neoplastic disease at age 31 [email or web address] Not available 05/22/2020 15:42:44 Brother Malignant tumor of stomach [email or web address] Not available 05/05 15:43:08 Sister Malignant tumor of stomach [email or web address] Not available 05/05 15:43:09 Notes:Brother. Stomach CA. S ister stomach CA Medical History Condition Response Coronary Artery Disease Y Gout N Neuropathy/Neuralgia Y Kidney Stones Y Hyperthyroidism Y Hypothyroidism N Depression N COPD Y Hepatitis C N Migrane Y Diabetes N Anxiety Disorder Y Arthritis Y Hyperlipidemia N Cancer N Stroke N Asthma Y HIV/AIDS N Headache N Bipolar Disorder N High Cholesterol Y GERD/Reflux Y Liver Disease N Pulmonary Embolism Fibromyalgia N Irritable Bowel Syndrome N Hypertension N Osteoporosis N Kidney Disease N Past Encounters Encounter ID Performer Location Encounter Start Date Encounter Closed Date Diagnosis/Indication Diagnosis SNOMED-CT Code Diagnosis ICD10 Code Diagnosis Note [id number] Nichole Cerna MD PAIN OFFICE [address] [place] [address] 05/22/2020 14:27:23 05/22/2020 15:48:08 Degeneration of lumbar intervertebral disc 65618352 M51.36 Lumbosacra l radiculopathy 6042070 M54.17 [id number] Nichole Cerna MD PAIN OFFICE [address] [place] [address] 06/10/2020 15:00:32 06/11/2020 16:26:09 Degeneration of lumbar intervertebral disc 55425398 M51.36 Lumbosacra l radiculopathy 0379729 M54.17 [id number] Nichole Cerna MD [facility] [address] [place] [address] 07/11/2020 09:04:20 07/11/2020 10:10:00 Degeneration of lumbar intervertebral disc 48919206 M51.36 Lumbosacra l radiculopathy 2118855 M54.17 [id number] Nichole Cerna MD [facility] [address] [place] [address] 08/27/2020 09:21:15 08/27/2020 14:26:37 Degeneration of lumbar intervertebral disc 28435686 M51.36 Lumbosacra l radiculopathy 1461234 M54.17 [id number] Nichole Cerna MD PAIN OFFICE [address] [place] [address] 10/27/2020 09:03:09 10/27/2020 10:31:58 Degeneration of lumbar intervertebral disc 37187838 M51.36 Lumbosacra l radiculopathy 1929526 M54.17 [id number] Nichole Cerna MD [facility] [address] [place] [address] 11/26/2020 10:20:04 11/27/2020 08:30:48 Degeneration of lumbar intervertebral disc 59264215 M51.36 Lumbosacra l spondylosis without myelopathy 75053487 M47.817 [id number] Nichole Cerna MD [facility] [address] [place] [address] 02/02/2021 08:58:44 02/02/2021 13:15:42 Degeneration of lumbar intervertebral disc 38759664 M51.36 Lumbosacra l radiculopathy 0481767 M54.17 [id number] Nichole Cerna MD [facility] [address] [place] [address] 02/18/2021 09:54:43 02/18/2021 10:57:29 Degeneration of lumbar intervertebral disc 21031244 M51.36 Lumbosacra l spondylosis without myelopathy 40732040 M47.817 [id number] Nichole Cerna MD [facility] [address] [facility] [place] [address] 03/25/2021 13:52:45 04/02/2021 10:28:23 Degeneration of lumbar intervertebral disc 72990623 M51.36 Lumbosacra l radiculopathy 1141737 M54.17 [id number] Nichole Cerna MD [facility] [address] [facility] [place] [place] [address] 05/19/2021 15:21:46 05/20/2021 10:24:30 Degeneration of lumbar intervertebral disc 23992422 M51.36 Lumbosacra l spondylosis without myelopathy 98769567 M47.817 [id number] Nichole Cerna MD PAIN OFFICE [address] [facility] [place] [address] 06/17/2021 09:55:48 06/17/2021 14:26:46 Degeneration of lumbar intervertebral disc 61536829 M51.36 Lumbosacra l spondylosis without myelopathy 98190203 M47.817 [id number] Nichole Cerna MD [facility] [address] [facility] [place] [address] 08/31/2021 08:56:43 08/31/2021 10:16:56 Degeneration of lumbar intervertebral disc 47898226 M51.36 Lumbosacra l radiculopathy 8080424 M54.17 [id number] Nicohle Cerna MD [facility] [address] [facility] [place] [place] [address] 10/20/2021 09:55:21 10/20/2021 16:24:29 Lumbosacral spondylosis without myelopathy 19587164 M47.817 Degenerati on of lumbar intervertebral disc 93942598 M51.36 [id number] Nichole Cerna MD [facility] [address] [facility] [place] [place] [address] 11/27/2021 09:46:54 11/27/2021 10:20:16 Degeneration of lumbar intervertebral disc 26688012 M51.36 Lumbosacra l radiculopathy 8701667 M54.17 [id number] Nichole Cerna MD [facility] [address] [facility] [place] [address] 01/26/2022 13:23:52 01/26/2022 13:55:35 Degeneration of lumbar intervertebral disc 15164508 M51.36 Lumbosacra l radiculopathy 4013650 M54.17 [id number] Nichole Cerna MD [facility] [address] [facility] [place] [place] [address] 05/25/2022 10:23:49 05/25/2022 11:27:34 Degeneration of lumbar intervertebral disc 51031323 M51.36 Lumbosacra l radiculopathy 8380092 M54.17 [id number] Nichole Cerna MD [facility] [address] [facility] [place] [address] 07/30/2022 11:26:01 07/30/2022 12:37:59 Degeneration of lumbar intervertebral disc 77721148 M51.36 Lumbosacra l radiculopathy 1581617 M54.17 [id number] Nichole Cerna MD [facility] [address] [facility] [place] [address] 09/01/2022 09:23:21 09/01/2022 16:16:10 Degeneration of lumbar intervertebral disc [id number] M51.36 Lumbosacra l spondylosis without myelopathy [id number] M47.817 [id number] Nichole Cerna MD [facility] [address] [facility] [place] [address] 09/30/2022 09:23:46 09/30/2022 10:05:36 Degeneration of lumbar intervertebral disc [id number] M51.36 Lumbosacra l spondylosis without myelopathy [id number] M47.817 [id number] Nichole Cerna MD [facility] [address] [facility] [place] [address] 02/08/2023 10:28:57 02/08/2023 16:54:02 Degeneration of lumbar intervertebral disc [id number] M51.36 Lumbosacra l spondylosis without myelopathy [id number] M47.817 [id number] Nichole Cerna MD [facility] [address] [facility] [place] [address] 06/15/2023 11:00:30 06/15/2023 14:52:20 Lumbar radiculitis [id number] M54.16 Degenerati on of lumbar intervertebral disc 36915142 M51.36 Lumbosacra l spondylosis without myelopathy [id number] M47.817 [id number] Nichole Cerna MD PAIN OFFICE [address] [facility] [place] [place] [address] 09/28/2023 10:47:35 09/28/2023 15:51:52 Lumbar radiculitis [id number] M54.16 Degenerati on of lumbar intervertebral disc 21021463 M51.36 Lumbosacra l spondylosis without myelopathy 32222631 M47.817 Health Concerns Section Related Observation LastModified by Organization Detai ls LastModified Time None Recorded Concern Status LastModified by Organization Details LastModified Time None Recorded Advance Directives Directive None Recorded Payers Encounter Date Sequence Insurance Name Policy Number Policy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
--- OUTSIDE RECORDS SUMMARY | 2024-03-30 15:57 | XMS_ITS | Clinical Summary ---
Author Organization [address] Address [address] [place] [phone] Phone Care Team Providers Care Dowel Maker Name Role Phone Anthony Sr Primary Care Provider [phone] Allergies Active Allergy Reactions Criticality Noted Date Comments Oxycodone-Acetaminophen 03/04/2020 Medications Medication Sig Dispensed Refills Start Date End Date Status acetaminophen (Tylenol Extra Strength) 500 mg tablet Take by mouth if needed. Active albuterol 2.5 mg /3 mL (0.083 %) nebulizer solution Inhale 3 mL (2.5 mg total) by mouth every 4 (four) hours if needed for wheezing or shortness of breath (cough). Active albuterol HFA (PROAIR HFA ; PROVENTIL HFA ; VENTOLIN HFA) 90 mcg/actuation inhaler Inhale 2 puffs by mouth every 4 (four) hours if needed for shortness of breath or wheezing. 01/06/2024 Active aspirin 81 mg EC tablet Take 1 tablet (81 mg total) by mouth 1 (one) time each day. Active celecoxib (CeleBREX) 200 mg capsule Take 1 capsule (200 mg total) by mouth 1 (one) time each day. 01/06/2024 Active finasteride (PROSCAR) 5 mg tablet Take 1 tablet (5 mg total) by mouth 1 (one) time each day. Active fluticasone propionate (FLONASE) 50 mcg/actuation nasal spray 2 sprays in each nostril once per day for 2 weeks. 01/14/2021 Active methIMAzole (TAPAZOLE) 5 mg tablet Take 1 tablet (5 mg total) by mouth. 01/18/2023 Active omeprazole (PriLOSEC) [address] capsule Take 1 capsule (20 mg total) by mouth 2 (two) times a day. Active sertraline (ZOLOFT) 100 mg tablet Take 2 tablets (200 mg total) by mouth 1 (one) time each day. 08/03/2022 Active tamsulosin (FLOMAX) 0.4 mg 24 hr capsule Take 2 capsules (0.8 mg total) by mouth 1 (one) time each day. 03/02/2021 Active traMADoL (ULTRAM) 50 mg tablet Take 1 tablet (50 mg total) by mouth. 01/06/2024 Active furosemide (LASIX) 20 mg tablet TAKE 1 TABLET BY MOUTH DAILY NEEDED FOR LEG SWELLING 90 tablet 1 01/30/2024 Active metoprolol succinate (TOPROL-XL) 25 mg 24 hr tablet Take 0.5 tablets (12.5 mg total) by mouth 1 (one) time each day. 45 tablet 3 01/25/2024 Active atorvastatin (LIPITOR) 80 mg tablet Take 1 tablet (80 mg total) by mouth 1 (one) time each day. 30 each 5 03/13/2024 5 Active gabapentin (NEURONTIN) 100 mg capsule Take 1 capsule (100 mg total) by mouth at bedtime. 30 each 5 03/19/2024 Active doxycycline (ADOXA) 100 mg tablet Take 1 tablet (100 mg total) by mouth 2 (two) times a day. 03/16/2024 Active LORazepam (ATIVAN) 0.5 mg tablet Take 1 tablet (0.5 mg total) by mouth. 01/06/2024 5 Discontinued predniSONE (DELTASONE) 20 mg tablet Take 3 tabs on the first 3 days, take 2 tabs on the next 3 days, take 1 tab on the next 3 days, then stop. 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 Denies loss of consciousness. Denies vision changes. Denies any overt signs of bleeding. He does endorse constant headache x 2 weeks. Had lengthy discussion about needing further evaluation. Unfortunately the patient is caring for his and he is unable to go to the emergency room at this point, we will order a stat head CT to evaluate his head strike. Reiterated multiple times that if patient has any changes in his symptoms he needs to present to the emergency room immediately. Patient states he understands. 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 3 Overview (01/17/2024): Followed by vascular surgery Last Assessment & Plan: I considered adding Lasix as needed but given his propensity to orthostasis and need for beta-blockade in the setting of SVT, I am holding off-if swelling gets worse, we could consider adding this as needed Orthostatic hypotension 10/11/2022 Overview (01/17/2024): Last Assessment & Plan: Still having some postural symptoms but has not syncopized, recommended behavioral modifications including slow postural changes, will continue low-dose metoprolol Paroxysmal supraventricular tachycardia 10/12/19 Overview (01/17/2024): - Noted during hospitalization in August 2022 in the setting of bacteremia and sepsis- he has a left bundle branch block at baseline and therefore an SVT look like a wide-complex tachycardia-initially initiated on 25 mg of metoprolol which had to be decreased to 12.5 mg daily due to hypotension on the higher dose Last Assessment & Plan: He is not endorsing any complaints of chest pain, or palpitations. He reports that the metoprolol dosage of 12.5 mg has been working well for him. He has been educated to change positions slowly. Primary hypertension 04/07/2022 Bronchiectasis without complication 08/17/2021 Mild cognitive impairment 05/11/2021 Benign prostatic hyperplasia with lower urinary tract symptoms 09/12/2020 Asymptomatic bilateral carotid artery stenosis 1 05/05/2019 Carotid stenosis, asymptomatic, left 09/11/2019 Overview (01/17/2024): - Carotid ultrasound most recently in August 2021 showing 50 to 69% stenosis of the left internal carotid, less than 50% stenosis of the right internal carotid, antegrade flow in both vertebrals-stable from February 2021 - Followed by vascular surgery at [facility] Multinodular goiter 12/10/2018 Nonrheumatic aortic valve stenosis 04/27/2016 Overview (01/17/2024): - Most recent echo during his hospitalization at [facility] on 08/05/2022 showing normal left ventricular size, wall thickness, and systolic function, normal regional wall motion with an ejection fraction of 55 to 60%, mildly dilated right ventricle with normal systolic function, moderate aortic stenosis with dimensionless index of 0.29 with calculated aortic valve area of 1.5 cm?? with a mean gradient of 24 mmHg, mild AI, mild MR, mild biatrial enlargement- based on the report from our echo on 09/29/2021, these findings are likely stable-we got a dimensionless index of 0.28 which would yield an aortic valve area of 1.5 cm?? assuming LVOT dimension was 2.6 cm as obtained from the [facility] echo (we got a measurement of 2.5 cm on our echo) with all other findings being similar Last Assessment & Plan: Patient updated echocardiogram on 10/28. Ejection fraction is slightly improved. Will continue to monitor. Patient has moderate aortic stenosis. Trace to mild aortic insufficiency. Hx of total knee replacement 12/17/2014 Overview (01/17/2024): Left 2005 Rt 2016 Depression 12/31/2011 CAD (coronary artery disease) 08/25/2011 Overview (01/17/2024): - Cardiac cath for unknown symptoms in 2000 that showed nonobstructive coronary disease with mild disease in the LAD territory graded as only 40% - Subsequent exercise nuclear stress test for dyspnea on exertion symptoms in December 2018. He exercised for 5-1/2 minutes and reached 74% of max predicted heart rate while on medications. ??Test was stopped due to dyspnea, nuclear imaging showing no evidence of ischemia or infarction with diaphragmatic attenuation artifact of the inferior wall-this was done at symptom limitation though not a diagnostic heart rate Last Assessment & Plan: Patient has been educated on a healthy cardiac diet. He should continue to move and exercise as tolerated. Has been educated to change positions slowly. Utilizing 81 mg aspirin, atorvastatin, metoprolol. Common bile duct stone 12/31/2010 Overview (01/17/2024): Ercp by dr crockett Removed stone Hyperthyroidism 03/17/2009 Diverticulosis of colon 12/21/2006 Overview (01/17/2024): GERD (gastroesophageal reflux disease) 6 Impotence of organic origin 07/05/2005 Urinary calculus 02/04/2005 Mixed hyperlipidemia 02/02/2005 Overview (01/17/2024): Last Assessment & Plan: Patient has been educated on a heart healthy diet. He is currently utilizing 40 mg atorvastatin. Last LDL draw was 72. Would like patient to be at or below 70. Encouraged him to improve upon his diet. Encounters Date Type Department Care Team Description 03/28/2024 Telephone [facility] [address] [place] [address] Ricardo Harmon MD [employer] ([place]); LOOP - [id number] (Ok to Book) 03/21/2024 Telephone Adult Medicine [address] [phone] Nikki Ellison MA faxed order ([facility] order #[id number]) 03/20/2024 12:30 PM EST Ancillary Procedure [facility] [address] [place] [phone] Occipital infarction (CMS/HCC); Parietal lobe infarction (CMS/HCC); Asymptomatic bilateral carotid artery stenosis 03/19/2024 2:00 PM EST Office Visit Adult Medicine [address] [phone] Jennie Lanza PA Occipital infarction (CMS/HCC) (Primary Dx); Parietal lobe infarction (CMS/HCC); Asymptomatic bilateral carotid artery stenosis; New persistent daily headache; Mixed hyperlipidemia 03/19/2024 Telephone Adult Medicine [address] [phone] Nikki Ellison MA faxed order ([facility] order #[id number]) 03/16/2024 Telephone Adult Medicine [address] [phone] Nikki Ellison MA faxed order ([facility] order #[id number]) 03/09/2024 12:40 PM EST - 03/09/2024 11:59 PM EST Hospital Encounter Radiology Department - [address] [phone] New persistent daily headache Discharge Disposition: Home or Self Care 03/06/2024 2:30 PM EST Office Visit Adult Medicine [address] [phone] Jennie Lanza PA New persistent daily headache (Primary Dx); History of subdural hematoma 03/05/2024 Nurse Triage Adult Medicine [address] [phone] Anthony Sr PA Headache 02/17/[address] [phone] Anthony Sr PA faxed order ([facility] #[id number]) 02/12/[address] [phone] Nikki Ellison MA faxed order ([facility] order #[id number]) 02/08/[address] [phone] Nikki Ellison MA faxed order ([facility] order #[id number]) 02/08/[address] [phone] Nikki Ellison MA faxed order ([facility] order# [id number]) 02/03/[address] [phone] Nikki Ellison MA 02/03/[address] [phone] Anthony Sr PA VNA Order ([facility]/Order #[id number]) 02/01/[address] [phone] Nikki Ellison MA faxed order ([facility] order #[id number]) 01/30/[address] [phone] Katie Todd MA vna order ([facility] order # [id number], [id number], [id number], [id number], [id number]/PT POC # [id number]/OT POC # [id number]//Fax # [phone]) 01/18/2024 Telephone Adult Medicine [address] [phone] Nikki Ellison MA faxed order ([facility] order #[id number]) 01/10/2024 Telephone Adult [address] [phone] Anthony Sr PA 01/04/2024 Billing Patient Not Present Adult [address] [phone] Anthony Sr PA Nontraumatic subdural hemorrhage (CMS/HCC) (Primary Dx); COPD without exacerbation (CMS/HCC); Primary hypertension; Postconcussion syndrome; Anemia, unspecified type; Pneumonia due to infectious organism, unspecified laterality, unspecified part of lung; Hyperlipidemia, unspecified hyperlipidemia type; Hypothyroidism, unspecified type; Osteoarthritis, unspecified osteoarthritis type, unspecified site; Benign prostatic hyperplasia, unspecified whether lower urinary tract symptoms present; Dependent on wheelchair from Last 3 Months Immunizations Name Administration Dates Next Due Influenza Quadravalent, MDCK , 0.5ml, with preservative (Flucelvax) 6mo and older 01/14/2017 Influenza trivalent, 0.5mL ( Fluad) 65yo and older 02/18/2023,12/18/2017 Influenza trivalent, with pr eservative (Fluzone; Afluria) 6mo and older 12/26/2023,01/19/2022,12/10/2020,01/10,02/24/2016,12/28/2014,01/07/2014 ,01/02/2013,12/31/2011,01/10/2011,12/06,01/29/2008,01/24/2007, 6 Pneumococcal conjugate 13 va lent (Prevnar 13, PCV13) 2mo and older 07/16/2014,07/16/2014 Pneumococcal polysaccharide 23 valent (Pneumovax 23) 2yo and older 02/04/2005 Td, Unspecified 12/28/2014,12/23/2003,12/23/2003 Zoster Live 02/03/2009 Zoster recombinant (Shingrix ) 19yo and older 03/17/2020 Surgical History Surgery Date Site/Laterality Comments TOTAL KNEE ARTHROPLASTY Bilateral PROCEDURE: HISTORICAL TOTAL KNEE REPLACE; COMMENT: left 2004 right 2014 OTHER SURGICAL HISTORY 12/21/2006 PROCEDURE: COLON CA SCRN NOT HI RSK IND; COMMENT: Neg/diverticulosis. OTHER SURGICAL HISTORY PROCEDURE: [place] PNXR ASPIR HYDROCELE TUNICA VAGIS W/WO NJX MED; COMMENT: 2006 CARPAL TUNNEL RELEASE PROCEDURE: [place] NEUROPLASTY &/TRANSPOS MEDIAN NRV CARPAL TUNNE; COMMENT: bilat 2009 OTHER SURGICAL HISTORY PROCEDURE: HISTORY OTHER; COMMENT: upper esophageal sphincterotomy complicated by intest perf CATARACT EXTRACTION PROCEDURE: HISTORICAL CATARACT REMOVAL; COMMENT: 2012 CHOLECYSTECTOMY 2019 PROCEDURE: HISTORICAL CHOLECYSTECTOMY; COMMENT: [facility] OTHER SURGICAL HISTORY 06/16/2021 PROCEDURE: NJ BRONCHOSCOPY BRONCHIAL/ENDOBRNCL BX 1+ SITES; COMMENT: Dr. Medley, brushings taken suctioning of airways LUMBAR LAMINECTOMY JOINT REPLACEMENT 03/07/2004 - 03/06/2005 Bilateral CERVICAL DISCECTOMY Medical History Medical History Date Comments Coronary atherosclerosis of unspecified type of vessel, [place] or graft DX:Coronary atherosclerosis of unspecified type of vessel, [place] or graft; COMMENT: thought due t spasm Urinary calculus, unspecified DX :Urinary calculus, unspecified; COMMENT: lithotrip 2003 dr torres Heartburn 07/05/2005 DX:Heartburn Impotence of organic origin 07/05/2005 DX:I mpotence of organic origin Diverticulosis of colon (wit hout mention of hemorrhage) 12/21/2006 DX:Diverticulosis of colon ( without mention of hemorrhage); COMMENT: Incidental finding at colonoscopy 12/21/2006. Depression 12/31/2011 DX:Depression Subclinical hyperthyroidism 03/17/2009 DX:S ubclinical hyperthyroidism Pulmonary embolus (CMS/HCC) 03/24/2011 DX:P ulmonary embolus (HCC) Pain in limb 01/17/2006 DX:Pain in limb Phlebitis and thrombophlebit is of superficial vessels of lower extremities 05/14/2013 DX:Phlebitis and thrombophle bitis of superficial vessels of lower extremities Hyperlipidemia 02/02/2005 DX:Hyperlipidemi a GERD (gastroesophageal reflu x disease) 07/05/2005 DX:GERD (gastroesophageal re flux disease) Diverticulitis of colon with out hemorrhage 12/21/2006 DX:Diverticulitis of colon w ithout hemorrhage; COMMENT: Incidental finding at colonoscopy 12/21/2006. Common bile duct stone 12/31/2010 DX:Common bile duct stone; COMMENT: Ercp by dr crockett Removed stone Historical Medical DX 08/25/2011 DX:Abnorma l cardiac cath CAD (coronary artery disease) 08/25/2011 DX :CAD (coronary artery disease); COMMENT: IMO update Aortic insufficiency 10/16/2015 DX:Aortic i nsufficiency; COMMENT: Mild; echo 04/18 Mitral regurgitation 04/08/2011 DX:Mitral r egurgitation; COMMENT: Mild; echo 04/18 Diverticulosis of colon 12/21/2006 DX:Diver ticulosis of colon; COMMENT: Incidental finding at colonoscopy 12/21/2006. History of superficial phlebitis 05/14/2013 DX:History of superficial phlebitis Carotid stenosis, asymptomatic, left 09/11/2019 DX:Carotid stenosis, asymptomatic, left Hypertension COPD (chronic obstructive pu lmonary disease) (CMS/HCC) Asthma Chronic bronchitis ([facility]/HCC) Shortness of breath Pneumonia Stroke ([facility]) Dizziness Arthritis Family History Medical History Relation Name Comments Other: Rheumatic fever Mother Relation Name Status Comments Brother (Age 65) thymus can cer dm Father pnuemaonia Mother rheumaatic hear t Sister (Age 75) mi dm rupali l cell cancer Social History Tobacco Use Types Packs/Day Years [...] your loved ones. For example, child care aide or elderly care for an older adult? [...] file Not on file Not on file Obstetrics History Last Filed Vital Signs Vital Sign Reading Time Taken Comments Blood Pressure 100/60 03/19/2024 2:03 PM EST Pulse 73 03/19/2024 2:03 PM EST Temperature 36.2 ??C (97.2 ??F) 03/19/2024 2:03 PM ES T Respiratory Rate 16 03/19/2024 2:03 PM EST Oxygen Saturation - - Inhaled Oxygen Concentration - - Weight 83.2 kg (183 lb 6.4 oz) 03/20/2024 2:00 P M EST Height 170.2 cm (5' 7.01 ) 03/20/2024 2:00 PM ES T Body Mass Index 28.72 03/20/2024 2:00 PM EST Plan of Treatment Upcoming Encounters Date Type Department Care Team (Late st Contact Info) Description 04/18/2024 7:30 AM EST Hospital Encounter [facility] Main OR [address] [place] [phone] Lobo Starr MD [address] [address] 04/18/2024 7:30 AM EST - 04/18/2024 10:30 AM EST Surgery [facility] OR [address] [place] [phone] Lobo Starr MD [address] [address] L2-3 LUMBAR LAMINECTOMY & DECOMPRESSION [20625 (CPT??) +1 more] 05/01/2024 3:30 PM EST Office Visit Adult Medicine [address] [phone] Anthony rS, PA [address] [place] [phone] 05/25/2024 2:00 PM EDT Consult Vascular Surgery - [address] [phone] Willam Dumont MD [address] [address] 06/12/2024 10:45 AM EDT Office Visit Adult Medicine [address] [phone] Anthony Sr, PA [address] [place] [address] Scheduled Procedures Name Priority Associated Diagnoses Date/Ti me DECOMPRESSION LUMBAR Spinal stenosis, lumbar region with neurogenic claudication 04/18/2024 7:30 AM EST Health Maintenance Due Date Last Done Comments RSV Immunization Patients 60+ Years Old (1 - 1-dose 75+ series) 01/04/2015 Zoster Vaccines (3 of 3) 05/12/2020 03/17/2020, 01/07 Medicare Annual Wellness Visit 02/13/2022 COVID-19 Vaccine (4 - season) 2023 01/06/2021, 05/05/2020, 04/14/2020 Hypertension/CHF/CAD Annual BMP Blood Test 12/08/2024 12/09/2023, 12/09/2023 DTaP,Tdap,and Td Vaccines (4 - Td or Tdap) 12/28/2024 12/28/2014, 12/23/2003, 12/23/2003 Depression Screening 03/19/2025 03/19/2024 Falls Risk Assessment 03/19/2025 03/19/2024, 025 Social Influencers of Health Screening 03/19/2025 03/19/2024 Cholesterol Screening (Lipid Panel) 12/08/2028 12/09/2023, 12/09/2023 Pneumococcal Vaccine: 65+ Years Completed 07/16/2014, 07/16/2014, 02/04/2005 Influenza Vaccine Completed 12/26/2023, , 01/19/2022, Additional history exists HIB Vaccines Aged Out No longer eligi ble based on patient's age to complete this topic HPV Vaccines Aged Out No longer eligi ble based on patient's age to complete this topic Hepatitis A Vaccines Aged Out No long er eligible based on patient's age to complete this topic Hepatitis B Vaccines Aged Out No long er eligible based on patient's age to complete this topic IPV Vaccines Aged Out No longer eligi ble based on patient's age to complete this topic MMR Vaccines Aged Out No longer eligi ble based on patient's age to complete this topic Meningococcal ACWY Vaccine Aged Out N o longer eligible based on patient's age to complete this topic RSV Immunization Patients Under 20 months Aged Out No longer eligible based on patient's age to complete this topic Varicella Vaccines Aged Out No longer eligible based on patient's age to complete this topic Procedures Procedure Name Priority Date/Time Associated Diagnosis Comments VAS US DUPLEX CAROTID BILATERAL Routine 03/20/2024 12:51 PM EST 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) Asymptomatic bilateral carotid artery stenosis MR BRAIN WO CONTRAST Routine 03/09/2024 1:14 PM EST New persistent daily headache RADIOLOGIC EXAM CHEST 2 VIEWS Routine 01/06/2024 3:15 PM EDT Pure hypercholesterolemia, unspecified Other amnesia Benign prostatic hyperplasia with lower urinary tract symptoms Nonrheumatic aortic (valve) stenosis Occlusion and stenosis of bilateral carotid arteries Occlusion and stenosis of left carotid artery Nonrheumatic aortic (valve) insufficiency Presence of right artificial knee joint Major depressive disorder, single episode, mild (CMS/HCC) Atherosclerotic heart disease of [place] coronary artery without angina pectoris Nonrheumatic mitral (valve) insufficiency Personal history of pulmonary embolism Thyrotoxicosis, unspecified without thyrotoxic crisis or storm Gastro-esophageal reflux disease without esophagitis Cough, unspecified Encounter for follow-up examination after completed treatment for conditions other than malignant neoplasm Other specified respiratory disorders Abdominal aortic aneurysm, without rupture, unspecified (CMS/HCC) Essential (primary) hypertension Mild cognitive impairment of uncertain or unknown etiology ANNUAL BMP BLOOD TEST Routine 12/09/2023 LIPID PANEL Routine 12/09/2023 from Last 3 Months or Most Recently Relevant to Health Maintenance Results * Vascular US duplex carotid bilateral [...] mild heterogeneous plaque. Vertebral flow is antegrade. Transformation Lead Details A snyder scale, color and doppler analysis ultrasound was performed. During the study longitudinal and transverse views were obtained. Pulsed wave doppler was performed. Overall the study quality was adequate. Jennie Pool CALLE CV VASCULAR PROCEDUR ES * MR Brain wo Contrast (03/09/2024 1:14 [...] a mass or mass effect. POS - [id number] -------- FINAL REPORT -------- Dictated By: Gladys Barragan Dictated Date: 03/09/2024 17:08 ET Assigned Physician: Gladys Barragan Reviewed and Electronically Signed By: Gladys Barragan Signed Date: 03/10/2024 11:16 ET Workstation ID: [id number] Transcribed By: Self Edit Transcribed Date: 03/09/2024 [...] a mass or mass effect. POS - [id number] -------- FINAL REPORT -------- Dictated By: Gladys Barragan Dictated Date: 03/09/2024 17:08 ET Assigned Physician: Gladys Barragan Reviewed and Electronically Signed By: Gladys Barragan Signed Date: 03/10/2024 11:16 ET Workstation ID: [id number] Transcribed By: Self Edit Transcribed Date: 03/09/2024 17:40 ET Jennie CALLE IMG MRI PROCEDURES * RADIOLOGIC EXAM CHEST 2 VIEWS (01/06/2024 3:15 PM EDT) Anatomical Region Laterality Modality Radiographic Emy ging 01/06/2024 2:53 PM EDT Narrative 01/06/2024 5:31 PM EDT HISTORY: cough, congestion TECHNIQUE: PA and lateral radiographs of the chest COMPARISON: Chest radiograph from 12/09/2023 FINDINGS: There is a normal cardiomediastinal silhouette. ??Atherosclerosis of the thoracic aorta. ??Linear airspace opacities within the bilateral lower lung zones. ??Moderate degenerative changes of thoracic spine. ??Surgical melissa overlying the right upper quadrant. IMPRESSION: IMPRESSION: Linear airspace opacities within the bilateral lower lung zones which could represent atelectasis versus pneumonia. Procedure Note Kyle Man MD - 01/30/2024 HISTORY: cough, congestion TECHNIQUE: PA and lateral radiographs of the chest COMPARISON: Chest radiograph from 12/09/2023 FINDINGS: There is a normal cardiomediastinal silhouette. Atherosclerosis of thethoracic aorta. Linear airspace opacities within the bilateral lower lung zones. Moderatedegenerative changes of thoracic spine. Surgical melissa overlying the right upper quadrant. IMPRESSION: IMPRESSION: Linear airspace opacities within the bilateral lower lung zones whichcould represent atelectasis versus pneumonia. Anthony CALLE IMG XR PROCEDURES * Annual BMP Blood Test (12/09/2023) Pathologist [facility] Annual BMP Blood Test Abstracted Historical Provider MD JONATHAN Gould * Lipid panel (12/09/2023) Pathologist [facility] LDL/HDL Ratio 3 0 - 4 Triglycerides 103 0 - 150 mg/dL Cholesterol 169 0 - 200 mg/dL HDL 58 40 mg/dL LDL Cholesterol 91 0 - 100 mg/dL Blood Venous blood specimen / Unknown Historical Provider LAB BLOOD ORDERAB LES from Last 3 Months or Most Recently Relevant to Health Maintenance Advance Directives Documents on File Type Date Recorded Patient Risk Control Field Representative Expl anation Health Care Decision (hx) 12/12/2023 BAUTISTA CAMPBELL DIRECTIVE Care Teams Dowel Maker Relationship Specialty Start Date End Date Anthony Sr PA [address] [place] [id number] PCP - General Internal Medicine 03/06/24
== END 2024-03-30 10:01 | disposition home or self-care (01) ==
LOC: HO.LNP 10:00
PROVIDERS: Visit Provider Hospitalist
DX: J47.0 Bronchiectasis with acute lower respiratory infection (principal)
CPT/HCPCS: 87070; 87077; 87186; 87205